=== PATIENT | female | born 1945 | race Caucasian/White ===

== ENCOUNTER 2020-01-28 23:53 | Observation (INO) | payer MEDICARE, OTHER, SELFPAY ==
[2020-01-28 23:57] VITALS: BP 119/62; PULSE 73; RESP 18; TEMP 36.7; O2SAT 98; BMI 25.1
--- NOTE | 2020-01-28 23:59 | ECG_ITS ---
APPROVED REPORT Exam: Resting ECG HR:68 bpm ECG Measurements Heart Rate 68 AXES WI 206 P 66 QRSd 96 QRS -68 QT 442 T 41 QTc 469 <Conclusion> Normal sinus rhythm Left axis deviation Abnormal ECG Electronically signed by : Walter Murillo, 01/31/2020 13:14:47
--- NOTE | 2020-01-29 00:03 | XR_ITS ---
PROCEDURE: XR CHEST PORTABLE CLINICAL HISTORY: ams, abrupt onset n/v COMPARISON: No exams were available for comparison FINDINGS: There is mild cardiomegaly without failure. Linear density is present in the left lung base and may be due to atelectasis or fibrosis. No lobar consolidation or collapse. There is also increased density in the right apex which may be due to overlying Chin artifact No acute bony abnormalities. IMPRESSION: Cardiomegaly with left basilar atelectasis or fibrosis and possible soft tissue artifact in the right apex Dictated by: Shoaib Rob MD 01/29/2020 06:21 Electronically signed by Shoaib Rob MD in [facility] 01/29/2020 06:21
--- NOTE | 2020-01-29 00:05 | CT_ITS ---
PROCEDURE: CT ABDOMEN PELVIS WO CON CLINICAL INDICATION: n/v Nausea and vomiting COMPARISON: No exams were available for comparison TECHNIQUE: Axial images obtained with sagittal and coronal reformats. All CT scans at the facility use one or more dose reduction, viz: automated exposure control, ma/kV adjustment per patient size (including targeted exams where dose is matched to indication, i.e. head), or iterative reconstruction technique. FINDINGS: LOWER THORAX: Atelectatic changes are present in the lung bases. There is dense calcification of the mitral valve annulus and coronary artery calcifications are also present. ABDOMEN & PELVIS: Increased density is noted in the posterior aspect of the gallbladder suggesting cholelithiasis and/or sludge. The liver, spleen, and pancreas have an unremarkable appearance. The adrenal glands are slightly enlarged but maintain and adrenal form shape. 3.8 cm cyst involves the right kidney medially. Renal arterial calcifications are present. There is a small hiatal hernia. No intestinal obstruction or free air. No evidence of appendicitis. There is colonic diverticulosis but no evidence of diverticulitis. Fenton catheter is present in a decompressed urinary bladder. No pelvic mass or abnormal fluid collection apparent. Post hysterectomy changes are noted. Atherosclerotic changes of the abdominal aorta with mild dilatation of the immediate infrarenal abdominal aorta at 2.1 cm and mild dilatation of the mid abdominal aorta at 2 cm and the lower abdominal aorta at 1.9 cm. IMPRESSION: 1. Possible stones and/or sludge in the gallbladder. Gallbladder ultrasound may provide further evaluation 2. Colonic diverticulosis. 3. Other nonacute findings as detailed above. Dictated by: Shoaib Rob MD 01/29/2020 09:12 Electronically signed by Shoaib Rob MD in [facility] 01/29/2020 09:12
--- NOTE | 2020-01-29 00:05 | CT_ITS ---
PROCEDURE: CT HEAD/BRAIN WO CON CLINICAL INDICATION: Altered mental status, altered level of consciousness, confusion, disorientation, prior stroke Sudden onset of vomiting with nausea COMPARISON: No exams were available for comparison TECHNIQUE: Axial images obtained. All CT scans at the facility use one or more dose reduction, viz: automated exposure control, ma/kV adjustment per patient size (including targeted exams where dose is matched to indication, i.e. head), or iterative reconstruction technique. FINDINGS: No midline shift, mass effect, intracranial hemorrhage, hydrocephalus, or extra-axial fluid collection is evident. There is generalized atrophy with hypoattenuation of the periventricular white matter consistent with microangiopathic changes.. Old lacunar infarctions are present involving the basal ganglia on both sides. The calvarium has an unremarkable appearance. No mastoid effusion. Bilateral maxillary sinus retention cysts are present. IMPRESSION: No acute intracranial finding Dictated by: Shoaib Rob MD 01/29/2020 09:07 Electronically signed by Shoaib Rob MD in [facility] 01/29/2020 09:07
[2020-01-29 00:12] LABS: Basophils # 0.3 K/mm3 (0-0.2); Basophils % 2.2 % (0.1-2.0); Eosinophils # 0.1 K/mm3 (0.0-0.4); Hematocrit 40.9 % (37.0-47.0); Hemoglobin 13.3 g/dL (12.2-16.2); Lymphocytes # 2.1 K/mm3 (0.7-4.5); Lymphocytes % 15.9 % (10-50); Mean Corpuscular HGB Conc 32.5 g/dL (31.8-35.4); Mean Corpuscular Volume 92.4 fl (81-99); Mean Platelet Volume 10.6 fl (7.4-10.4); Monocytes # 0.6 K/mm3 (0.1-1.0); Monocytes % 4.8 % (1.7-9.3); Neutrophils # 9.8 K/mm3 (1.8-7.8); Neutrophils % 76.1 % (37.0-80.0); Platelet Count 338 K/mm3 (142-424); Red Blood Count 4.43 M/mm3 (4.20-5.40); Red Cell Distribution Width 14.4 % (11.5-17.5); White Blood Count 12.8 K/mm3 (4.8-10.8)
--- NOTE | 2020-01-29 00:17 | PC.NURSE ---
urine obtained and sent to lab, swabs obtained and sent to lab. no new at this time.
[2020-01-29 00:21] LABS: Microscopic, Urine URINE MICROSCOPIC (MICROSCOPIC)
[2020-01-29 00:21] LABS: Alanine Aminotransferase 13 U/L (12-78); Albumin Level 4.3 g/dl (3.5-5.0); Albumin/Globulin Ratio 1.2 (1.1-1.8); Alkaline Phosphatase 94 U/L (38-126); Amylase 141 U/L (30-110); Anion Gap 11.8 mEq/L (5-15); Aspartate Amino Transferase 24 U/L (14-36); Bilirubin,Total 0.2 mg/dl (0.2-1.3); Blood Urea Nitrogen 37 mg/dl (7-17); Carbon Dioxide 27 mmol/L (22.0-30.0); Chloride 107 mmol/L (98-107); Creatinine Clearance Estimated 40 mL/min (50-200); Estimated Glomerular Filt Rate 40 ml/min (>60); GFR (African American) 49 ML/MIN (>60); Globulin 3.6 g/dL (1.3-3.2); Glucose 177 mg/dl (74-100); Lipase 119 U/L (23-300); Potassium 3.8 mmoL/L (3.5-5.1); Sodium 142 mmol/L (136-145); Total Protein,Serum 7.9 g/dl (6.3-8.2)
[2020-01-29 00:23] LABS: Bilirubin,Urine Negative (Negative); Blood, Urine 1+ (Negative); Color,Urine YELLOW (Yellow); Glucose,Urine (UA) Negative (Negative); Ketones,Urine Negative (Negative); Leukocyte Esterase,Urine 2+ (Negative); Nitrate,Urine POSITIVE (Negative); Protein,Urine TRACE (Negative); Urobilinogen,Urine 0.2 EU/dl (0.2)
[2020-01-29 00:28] LABS: Appearance,Urine Cloudy (Clear); Strep Scrn Group A (Rapid) Negative (Negative)
[2020-01-29 00:30] LABS: Bacteria,Urine 2+ /lpf
[2020-01-29 00:31] LABS: Amorphous Sediment,Urine 1+ /lpf; Mucus,Urine 1+ /lpf
[2020-01-29 00:38] LABS: Troponin I < 0.01 ng/ml (0.00-0.034)
--- NOTE | 2020-01-29 00:39 | PC.NURSE ---
notified rad of gfr. changed to without contrast ct abd.
[2020-01-29 00:43] LABS: Erythrocyte Sedimentation Rate 35 mm/hr (0-30)
--- NOTE | 2020-01-29 01:35 | HMH.EDAMS ---
ED Disposition Clinical Impression: Renal insufficiency UTI (urinary tract infection) Qualifiers: Urinary tract infection type: site unspecified Hematuria presence: without hematuria Qualified Code(s): N39.0 - Urinary tract infection, site not specified Disposition: Admitted as Observation Condition on Discharge: Fair - Critical Care Critical Care Time: No Attestation: On 01/28/20, the high probability of a clinically significant, sudden or life threatening deterioration of the following system(s) required my full and direct attention, intervention and personal management. The time I documented below is in addition to time spent performing reported procedures but includes the following listed in this critical care notation. Medical Decision Making - Medical Records Medical records reviewed: Yes: I reviewed the patient's medical records. - Jaime Inquiry Pt receiving controlled substance: No Vital Signs: 01/28/20 23:57 Temperature 98.1 F Temperature Source Oral Pulse Rate [Right Brachial] 73 Respiratory Rate 18 Blood Pressure [Right Arm] 119/62 Blood Pressure Mean [Right Arm] 81 Blood Pressure Source [Right Arm] Automatic Cuff Blood Pressure Position [Right Arm] Sitting 02 Sat by Pulse Oximetry 98 Oxygen Delivery Method Room Air - Lab Data Lab results reviewed: Yes: I reviewed the patient's lab results. Lab Results 01/29/20 00:00: WBC 12.8 H, RBC 4.43, Hgb 13.3, Hct 40.9, MCV 92.4, MCH 30.0, MCHC 32.5, RDW 14.4, Plt Count 338, MPV 10.6 H, Neut % (Auto) 76.1, Lymph % (Auto) 15.9, [place] % (Auto) 4.8, Eos % (Auto) 1.0, Baso % (Auto) 2.2 H, Neut # (Auto) 9.8 H, Lymph # (Auto) 2.1, [place] # (Auto) 0.6, Eos # (Auto) 0.1, Baso # (Auto) 0.3 H, ESR 35 H 01/29/20 00:00: Sodium 142, Potassium 3.8, Chloride 107, Carbon Dioxide 27, Anion Gap 11.8, BUN 37 H, Creatinine 1.30 H, Estimated Creat Clear 40, Estimated GFR 40 L, Est GFR ( Amer) 49 L, Glucose 177 H, Calcium 10.0, Total Bilirubin 0.2, AST 24, ALT 13, Alkaline Phosphatase 94, Troponin I < 0.01, C-Reactive Protein 2.0, Total Protein 7.9, Albumin 4.3, Globulin 3.6 H, Albumin/Globulin Ratio 1.2, Amylase 141 H, Lipase 119 01/29/20 00:15: Urine Color Yellow, Urine Appearance Cloudy, Urine pH 7.0, Ur Specific [place] 1.020, Urine Protein Trace, Urine Glucose (UA) Negative, Urine Ketones Negative, Urine Blood 1+, Urine Nitrate Positive, Urine Bilirubin Negative, Urine Urobilinogen 0.2, Ur Leukocyte Esterase 2+ A, Urine RBC 3-5, Urine WBC 5-10, Amorphous Sediment 1+, Urine Bacteria 2+, Urine Mucus 1+ 01/29/20 00:15: Influenza Type A Ag Negative, Influenza Type B Ag Negative 01/29/20 00:15: Group A Strep Rapid Negative Result diagrams: 01/29/20 00:00 01/29/20 00:00 Orders (Tests/Meds): ED MEDICATIONS Generic Name Dose Route Start Last Admin Trade Name Freq PRN Reason Stop Dose Admin Sodium Chloride 1,000 mls @ 999 mls/hr 01/29/20 01:15 01/29/20 01:34 Sod Chlor 0.9% 1000ml Bag IV 01/29/20 02:15 999 mls/hr .Q1H1M ALBERTA Administration Ertapenem 1 gm/ Sodium 50 mls @ 100 mls/hr 01/29/20 01:15 01/29/20 01:34 Chloride IV 02/12/20 01:14 100 mls/hr Q24H ALBERTA Administration Protocol ORDERS Category Date Time Status CT abdomen pelvis wo con Stat Cat Scan 01/29/20 00:[address] head/brain wo con Stat Cat Scan 01/29/20 00:05 Taken XR chest portable Stat Exams 01/29/20 00:03 Taken Troponin I Q3H Lab 01/29/20 03:15 Ordered Troponin I Q3H Lab 01/29/20 06:15 Ordered Strep Screen Confirmation Stat Micro 01/29/20 00:15 Received Urine Culture Stat Micro 01/29/20 00:15 Received - Radiology Data #1 Image(s): Chest Image Reviewed: Yes I reviewed the patient's radiology image Preliminary Findings: Normal/NAD - CT Data CT Scan: Head, Abdomen, Pelvis Time Received: 01:[address] Reviewed: Yes: I have viewed the radiologist's interpretation Preliminary Findings: Abnormal (nonspecific ) - ECG Data Tracing #1 Normal Sinus
--- NOTE | 2020-01-29 01:48 | PC.NURSE ---
I spoke with and son in the parking lot and advised them we were admitting her with a UTI. They were going home and would call and check on her later.
[2020-01-29 02:21] VITALS: BP 112/75; PULSE 73; RESP 19; TEMP 36.7; O2SAT 99
[2020-01-29 02:40] LABS: Lactic Acid 0.8 mmol/L (0.7-2.1)
--- NOTE | 2020-01-29 03:06 | PC.NURSE ---
p arrived to floor via stretcher from ED
[2020-01-29 03:07] VITALS: BP 137/72; PULSE 76; RESP 16; TEMP 36.5; O2SAT 96; BMI 23.6
--- NOTE | 2020-01-29 03:07 | PC.NURSE ---
pt arrived to floor via stretcher from ED
[2020-01-29 03:24] VITALS: PULSE 70
[2020-01-29 03:56] LABS: Troponin I < 0.01 ng/ml (0.00-0.034)
[2020-01-29 04:00] VITALS: PULSE 80
--- NOTE | 2020-01-29 05:43 | PC.NURSE ---
A&OX4. PERRLA, MOLDER STRONG AND EQUAL BILAT. COMMUNICATION WITH STAFF APPROPRIATE. PT REPORTS SHE DOES NOT KNOW THE NAMES OF HER HOME MEDICATIONS. PT STATED I JUST TAKE A PILL FOR MY HEART, BLOOD PRESSURE, THYROID PILL, ASPIRIN. USED THE EXTERNAL MEDICATION LIST FOR ASSISTANCE WITH COMPLETION OF MED REC ON ADMISSION. LUNGS CLEAR T/O AUSCULTATION. TOLERATED RA WELL. PULSES +2, CAP REFILL <3SEC. ABDOMEN MILDLY DISTENDED, ACTIVE BOWEL SOUNDS, SOFT AND NONTENDER PER PALPATION. CROUCH CATHETER IN PLACE, PATENT, DRAINING DARK YELLOW, CLOUDY URINE. INDEPENDENT WITH BED MOBILITY. VSS. WILL CONTINUE TO MONITOR.
[2020-01-29 06:32] LABS: Basophils # 0.1 K/mm3 (0-0.2); Basophils % 0.7 % (0.1-2.0); Eosinophils # 0.1 K/mm3 (0.0-0.4); Eosinophils % 0.8 % (0.1-12.0); Lymphocytes # 1.9 K/mm3 (0.7-4.5); Lymphocytes % 18.9 % (10-50); Mean Corpuscular HGB Conc 32.3 g/dL (31.8-35.4); Mean Corpuscular Hemoglobin 29.5 pg (27.0-31.2); Mean Corpuscular Volume 91.2 fl (81-99); Mean Platelet Volume 9.5 fl (7.4-10.4); Monocytes # 0.5 K/mm3 (0.1-1.0); Monocytes % 5.1 % (1.7-9.3); Neutrophils # 7.5 K/mm3 (1.8-7.8); Neutrophils % 74.4 % (37.0-80.0); Platelet Count 281 K/mm3 (142-424); Red Blood Count 3.84 M/mm3 (4.20-5.40); Red Cell Distribution Width 14.3 % (11.5-17.5)
[2020-01-29 06:33] LABS: Chloride 111 mmol/L (98-107)
[2020-01-29 06:34] LABS: Potassium 3.7 mmoL/L (3.5-5.1); Sodium 142 mmol/L (136-145)
[2020-01-29 06:37] LABS: Anion Gap 9.7 mEq/L (5-15); Blood Urea Nitrogen 32 mg/dl (7-17); Carbon Dioxide 25 mmol/L (22.0-30.0); Creatinine Clearance Estimated 44 mL/min (50-200); Estimated Glomerular Filt Rate 49 ml/min (>60); GFR (African American) 59 ML/MIN (>60); Glucose 108 mg/dl (74-100); Hematocrit 34.8 % (37.0-47.0); Hemoglobin 11.4 g/dL (12.2-16.2); Magnesium 2.1 mg/dl (1.6-2.3)
[2020-01-29 06:38] LABS: Calcium 8.8 mg/dl (8.4-10.2)
[2020-01-29 06:55] LABS: Troponin I < 0.01 ng/ml (0.00-0.034)
--- NOTE | 2020-01-29 07:29 | HMH.PHAVTE ---
[facility] Pharmacy VTE Monitoring - Patient Demographics Admission date: 01/29/20 Report Date: 01/29/20 Time: 07:29 Allergies/Adverse Reactions: Patient Allergies Penicillins Allergy (Mild, Verified 01/29/20 00:03) Height: 1.6 m Weight: 60.583 kg Patient Problems: Current Active Problems UTI (urinary tract infection) (Acute) Renal insufficiency (Acute) - VTE Risk Labs: VTE Related Lab Results Hgb 11.4 g/dL (12.2-16.2) L D 01/29/20 05:56 Hct 34.8 % (37.0-47.0) L 01/29/20 05:56 Plt Count 281 K/mm3 (142-424) 01/29/20 05:56 BUN 32 mg/dl (7-17) H 01/29/20 05:56 Creatinine 1.10 mg/dl (0.52-1.04) H 01/29/20 05:56 Estimated Creat Clear 44 mL/min (50-200) 01/29/20 05:56 VTE Score: 3 VTE Risk Level: Low Risk - Prophylaxis VTE Prophylaxis Ordered?: Yes Types of VTE Prophylaxis: TEDS Knee High Location of Applied Device: Bilateral Lower Extremeties - VTE Diagnosis Confirmed Treatment or plan recommended: Continue Current Treatment
[2020-01-29 08:00] VITALS: BP 104/58; PULSE 67; PULSE 70; RESP 16; TEMP 37; O2SAT 98
--- NOTE | 2020-01-29 09:15 | HMH.HPDC ---
General - General Admission date:: 01/29/20 Discharge date: 01/29/20 *Admission Date: 01/29/20 *Chief complaint: confusion *History of present illness: Ms. Colon is a pleasant 74-year-old female with history of stroke, hypertension, hyperlipidemia who presented to the ER last night due to confusion per her report. Review of ER documentation shows EMS brought the patient from home because her family was concerned due to worsening confusion. Was afebrile, hemodynamically stable. Work-up remarkable for mild leukocytosis and urinary tract infection. This morning on interview she denies any history of urinary tract infections. States she is doing pretty well. Is oriented on exam to person place and time. Tolerating breakfast without difficulty. Denies any chest pain, shortness of breath, belly pain, nausea vomiting or diarrhea. States she is feeling good this morning and interested in going home. Lives with her and son. They help care for her. Has some residual right-sided deficits per her report from a stroke several years ago but otherwise ambulates fairly well with a cane. Relatively independent for ADLs per her report. [facility] History I have reviewed the patient's past medical history: Yes Medical History: Reports:: Hyperlipidemia, Hypertension Denies:: Diabetes Mellitus Type 1, Diabetes Mellitus Type 2 *Have you ever received a pneumonia vaccine?: No *Have you received a flu vaccine this season?: No Other Medical History: Reports: Hypothyroidism Other Surgeries: Yes: Hysterectomy-Total - *Social History Educational Level: Completed Grade School Smoking Status: Current every day smoker Tobacco Type: cigarettes # Packs/Day (cigarettes): 1 Alcohol Intake: never *Occupational Status:: retired Household Members: spouse *Travel in the last 8 weeks: None Family Hx:: Cancer Review of Systems - Review of Systems Review of systems:: pertinent systems reviewed and negative unless documented below (14 point review of systems performed, pertinent positives and negatives as per HPI) - *Neurologic Reports confusion, Reports weakness, Denies abnormal speech, Denies localized weakness, Denies headache(s), Denies seizure-like activity Exam Vital signs and Labs for Last 24 Hours: Temp Pulse Resp BP Pulse Ox 98.6 F 67 16 104/58 L 98 01/29/20 08:00 01/29/20 08:00 01/29/20 08:00 01/29/20 08:00 01/29/20 08:00 Laboratory Results - last 24 hr 01/29/20 00:00: WBC 12.8 H, RBC 4.43, Hgb 13.3, Hct 40.9, MCV 92.4, MCH 30.0, MCHC 32.5, RDW 14.4, Plt Count 338, MPV 10.6 H, Neut % (Auto) 76.1, Lymph % (Auto) 15.9, [place] % (Auto) 4.8, Eos % (Auto) 1.0, Baso % (Auto) 2.2 H, Neut # (Auto) 9.8 H, Lymph # (Auto) 2.1, [place] # (Auto) 0.6, Eos # (Auto) 0.1, Baso # (Auto) 0.3 H, ESR 35 H 01/29/20 00:00: Sodium 142, Potassium 3.8, Chloride 107, Carbon Dioxide 27, Anion Gap 11.8, BUN 37 H, Creatinine 1.30 H, Estimated Creat Clear 40, Estimated GFR 40 L, Est GFR ( Amer) 49 L, Glucose 177 H, Calcium 10.0, Total Bilirubin 0.2, AST 24, ALT 13, Alkaline Phosphatase 94, Troponin I < 0.01, C-Reactive Protein 2.0, Total Protein 7.9, Albumin 4.3, Globulin 3.6 H, Albumin/Globulin Ratio 1.2, Amylase 141 H, Lipase 119 01/29/20 00:15: Urine Color Yellow, Urine Appearance Cloudy, Urine pH 7.0, Ur Specific [place] 1.020, Urine Protein Trace, Urine Glucose (UA) Negative, Urine Ketones Negative, Urine Blood 1+, Urine Nitrate Positive, Urine Bilirubin Negative, Urine Urobilinogen 0.2, Ur Leukocyte Esterase 2+ A, Urine RBC 3-5, Urine WBC 5-10, Amorphous Sediment 1+, Urine Bacteria 2+, Urine Mucus 1+ 01/29/20 00:15: Influenza Type A Ag Negative, Influenza Type B Ag Negative 01/29/20 00:15: Group A Strep Rapid Negative 01/29/20 02:13: Lactate 0.8 01/29/20 03:24: Troponin I < 0.01 01/29/20 05:56: Troponin I < 0.01 01/29/20 05:56: WBC 10.0, RBC 3.84 L, Hgb 11.4 L D, Hct 34.8 L, MCV 91.2, MCH 29.5, MCHC 32.3, RDW 14.3, Plt Count 281, MPV 9.5, Neut % (Auto) 74.4,
--- NOTE | 2020-01-29 09:57 | PC.NURSE ---
Addendum entered by MARCIA Kaminski 01/29/20 11:14: Care Management contacted me with pt's Dr office name. Appointment was made for the pt. Original Note: No follow up appointment was made for this pt. Pt unable to tell us who her primary was. She is going to make her own appointment when she goes home and has her dr.'s name and number on hand.
--- NOTE | 2020-01-29 10:23 | HMH.PHAINT ---
DISCHARGE COUNSELING-DISCUSSED DISCHARGE ANTIBIOTIC, LEVAQUIN, WITH PATIENT.
== END 2020-01-29 11:30 | disposition home or self-care (01) ==
LOC: ER 01-29 00:56 → 2ND 01-29 01:24
PROVIDERS: Admitting Provider Internal Medicine Adolescent Medicine; Emergency Provider Emergency Medicine; Visit Provider Internal Medicine Adolescent Medicine
DX: N39.0 Urinary tract infection, site not specified (principal); I10 Essential (primary) hypertension; E78.5 Hyperlipidemia, unspecified; Z72.0 Tobacco use; B96.20 Unspecified Escherichia coli [E. coli] as the cause of diseases classified elsewhere; I69.351 Hemiplegia and hemiparesis following cerebral infarction affecting right dominant side
CPT/HCPCS: 36415; 70450; 71045; 74176; 80048; 80053; 81001; 82150; 83605; 83690; 83735; 84484; 85025; 85651; 86140; 87040; 87086; 87088; 87186; 87275; 87276; 87430; 93005; 96365; 99282; 99285; G0378; J1335

== ENCOUNTER 2021-04-05 13:45 | Observation (INO) | payer MEDICARE, SELFPAY ==
[2021-04-05] VITALS (22 sets, daily range): BP systolic 97–131; BP diastolic 48–70; PULSE 70–84; RESP 16–18; TEMP 36.4–37; O2SAT 93–99; BMI 18.8; BMI 25.4
[2021-04-05 14:21] LABS: Chloride 113 mmol/L (98-107); Potassium 4.3 mmoL/L (3.5-5.1); Sodium 142 mmol/L (136-145)
[2021-04-05 14:24] LABS: Anion Gap 12.3 mEq/L (5-15); Blood Urea Nitrogen 45 mg/dl (7-17); Calcium 8.6 mg/dl (8.4-10.2); Carbon Dioxide 21 mmol/L (22.0-30.0); Creatinine Clearance Estimated 28 mL/min (50-200); Estimated Glomerular Filt Rate 40 ml/min (>60); GFR (African American) 49 ML/MIN (>60); Glucose 91 mg/dl (74-100)
[2021-04-05 14:26] LABS: Basophils # 0.1 K/mm3 (0-0.2); Basophils % 1.2 % (0.1-2.0); Eosinophils # 0.2 K/mm3 (0.0-0.4); Eosinophils % 2.4 % (0.1-12.0); Lymphocytes % 24.4 % (10-50); Mean Corpuscular HGB Conc 31.1 g/dL (31.8-35.4); Mean Corpuscular Hemoglobin 27.6 pg (27.0-31.2); Mean Corpuscular Volume 88.7 fl (81-99); Mean Platelet Volume 9.4 fl (7.4-10.4); Monocytes # 0.6 K/mm3 (0.1-1.0); Monocytes % 6.9 % (1.7-9.3); Neutrophils # 5.3 K/mm3 (1.8-7.8); Neutrophils % 65.1 % (37.0-80.0); Platelet Count 329 K/mm3 (142-424); Red Cell Distribution Width 16.2 % (11.5-17.5); White Blood Count 8.2 K/mm3 (4.8-10.8)
[2021-04-05 14:31] LABS: Hematocrit 21.2 % (37.0-47.0); Hemoglobin 6.6 g/dL (12.2-16.2)
--- NOTE | 2021-04-05 14:31 | PC.NURSE ---
vandana in lab called with critical Hgb and HCT values on pt, verified pts name an . notified ER of critical results
--- NOTE | 2021-04-05 14:48 | HMH.EDGENADL ---
ED Disposition Clinical Impression: Anemia Disposition: Admitted as Observation Condition on Discharge: Good Referrals: Provider,Referral, [Primary Care Provider] - - Critical Care Critical Care Time: No Attestation: On 04/05/21, the high probability of a clinically significant, sudden or life threatening deterioration of the following system(s) required my full and direct attention, intervention and personal management. The time I documented below is in addition to time spent performing reported procedures but includes the following listed in this critical care notation. Medical Decision Making - Medical Records MR Comment: Patient Hb is 6.6 rectal exam did not show any melena. She takes aspirin a day and probably she lost blood continuously through the GI. Painless upper and lower GI scope. Will be admitted for blood transfusion. I called Dr. Alonzo he is on-call for admission agreed to admit this patient. - Jaime Inquiry Pt receiving controlled substance: No Jaime was queried for this patient: No Vital Signs: 04/05/21 14:00 Temperature 98.6 F Temperature Source Oral Pulse Rate [Right] 84 Respiratory Rate 18 Blood Pressure [Right Arm] 103/49 L Blood Pressure Mean [Right Arm] 67 Blood Pressure Position [Right Arm] Sitting 02 Sat by Pulse Oximetry 97 Oxygen Delivery Method Room Air - Lab Data Lab Results 04/05/21 13:50: WBC 8.2, RBC 2.40 L, Hgb 6.6 L*, Hct 21.2 L*, MCV 88.7, MCH 27.6, MCHC 31.1 L, RDW 16.2, Plt Count 329, MPV 9.4, Neut % (Auto) 65.1, Lymph % (Auto) 24.4, [place] % (Auto) 6.9, Eos % (Auto) 2.4, Baso % (Auto) 1.2, Neut # (Auto) 5.3, Lymph # (Auto) 2.0, [place] # (Auto) 0.6, Eos # (Auto) 0.2, Baso # (Auto) 0.1 04/05/21 13:50: Sodium 142, Potassium 4.3, Chloride 113 H, Carbon Dioxide 21 L, Anion Gap 12.3, BUN 45 H, Creatinine 1.30 H, Estimated Creat Clear 28, Estimated GFR 40 L, Est GFR ( Amer) 49 L, Glucose 91, Calcium 8.6 04/05/21 14:40: Stool Occult Blood Negative Result diagrams: 04/05/21 13:50 04/05/21 13:50 Orders (Tests/Meds): ED MEDICATIONS Generic Name Dose Route Start Last Admin Trade Name Nicol PRN Reason Stop Dose Admin Acetaminophen 650 mg 04/05/21 15:07 Acetaminophen 325mg Tab PO 05/05/21 15:06 Q4HP PRN Fever or Mild Pain Hydrocodone Bitart/Acetaminophen 1 tab 04/05/21 15:07 Hydrocodone/Apap 5/325 Mg Tablet PO 05/05/21 15:06 Q4HP PRN Mild to Moderate Pain Sodium Chloride 250 mls @ 25 mls/hr 04/05/21 15:15 Sod Chlor 0.9% 250ml Bag IV 04/06/21 15:14 .Q10H ALBERTA Sodium Chloride 1,000 mls @ 50 mls/hr 04/05/21 15:15 Sod Chlor 0.9% 1000ml Bag IV 05/05/21 15:14 .Q20H ALBERTA ORDERS Category Date Time Status Blood transfusion [Red Blood Cells] Stat BBK 04/05/21 15:05 Ordered Type and Screen Stat BBK 04/05/21 15:05 Ordered Rapid PCR Covid and Flu A/B Stat Lab 04/05/21 14:58 Received General Adult HPI - General Chief complaint: Recheck/Abnormal Lab/Rx Stated complaint: critical labs Time Seen by Provider: 04/05/21 14:15 Mode of Arrival: EMS Limitations: No Limitations Description of Symptoms (Recalled from ER Triage Doc. by RN): Pt via [facility] from home for critical H&H lab value. Pt denies any complaints at this time. AOx4. VSS. - History of Present Illness HPI narrative: There is old female she has no complaints she was sent here by her primary care physician because of critical lab of her low hemoglobin. Patient denied any abdominal pain. She denies any melena or hematemesis. She denied any nausea or vomiting. No chest pain. She takes aspirin on daily basis. She denied any acid reflux problem or epigastric pain or discomfort. She used to take blood pressure medications and her primary care physician stopped it. To the emergency room with no complaints except her labs indicates that her hemoglobin is 6.6. - Related Data Home Medications Medication Instructions Recorded Confirm
[2021-04-05 14:51] LABS: Occult Blood,Stool Negative (Negative)
--- NOTE | 2021-04-05 14:58 | PC.NURSE ---
SOLEDAD LAURA speaking with Dr. Alonzo who is environmental protection officer for service pts
[2021-04-05 15:01] LABS: Coronavirus 19, PCR Not Detected (NotDetected); Influenza A, PCR Not Detected (NotDetected); Influenza B, PCR Not Detected (NotDetected)
--- NOTE | 2021-04-05 15:05 | PC.NURSE ---
notified care management of admission
--- NOTE | 2021-04-05 15:19 | PC.NURSE ---
sherry rileyn at BS
--- NOTE | 2021-04-05 15:20 | PC.NURSE ---
lab at to obtain type and screen
--- NOTE | 2021-04-05 15:56 | HMH.PHAVTE ---
[facility] Pharmacy VTE Monitoring - Patient Demographics Admission date: 04/05/21 Report Date: 04/05/21 Time: 15:57 Allergies/Adverse Reactions: Patient Allergies Penicillins Allergy (Mild, Verified 04/05/21 15:12) Height: 1.55 m Weight: 45.359 kg Patient Problems: Current Active Problems Anemia (Acute) - VTE Risk Labs: VTE Related Lab Results Hgb 6.6 g/dL (12.2-16.2) L* 04/05/21 13:50 Hct 21.2 % (37.0-47.0) L* 04/05/21 13:50 Plt Count 329 K/mm3 (142-424) 04/05/21 13:50 BUN 45 mg/dl (7-17) H 04/05/21 13:50 Creatinine 1.30 mg/dl (0.52-1.04) H 04/05/21 13:50 Estimated Creat Clear 28 mL/min (50-200) 04/05/21 13:50 - Prophylaxis VTE Prophylaxis Ordered?: Yes Types of VTE Prophylaxis: TEDS Knee High Location of Applied Device: Bilateral Lower Extremeties
--- NOTE | 2021-04-05 16:06 | HMH.HP ---
*Admission Date: 04/05/21 *Chief complaint: anemia *History of present illness: Ms Colon is a 65 year old female with a history of HTN, hyperlipidemia, and hypothyroidism who was brought to [facility] emergency room for evaluation via ambulance due to critical lab values obtained by primary physician during a routine visit. With evaluation in the emergency room she was found to have a hemoglobin of 6.6. Patient denies any source of bleeding to include hematemesis, melena, hematochezia, hematuria. She denies abdominal pain, nausea, and vomiting. She has had no diarrhea and stools have been. Normal to her. She does state that she takes an aspirin a day. She denies taking any NSAIDs and has no reflux problems. Patient states she is still fine. She takes daily walks. She denies chest pain, shortness of breath, syncope and dizziness. She states she has never had an EGD or colonoscopy. Patient is admitted for administration of packed red blood cells. She will have a surgical consult. [facility] History Medical History: Reports:: Hyperlipidemia, Hypertension Denies:: Chronic Obstructive Pulmonary Disease (COPD), Diabetes Mellitus Type 1, Diabetes Mellitus Type 2 *Have you ever received a pneumonia vaccine?: No *Have you received a flu vaccine this season?: No Other Medical History: Reports: Hypothyroidism Other Surgeries: Yes: Hysterectomy-Total - *Social History Smoking Status: Current every day smoker Tobacco Type: cigarettes # Packs/Day (cigarettes): 1 Alcohol Intake: never *Occupational Status:: retired Housing: house Household Members: none *Travel in the last 8 weeks: None Family Hx:: Cancer, Diabetes Review of Systems - Constitutional Denies fatigue, Denies lack of energy - Eyes Denies change in vision - ENT Denies ear pain, Denies sore throat, Denies dizziness - *Cardiovascular Reports leg swelling, Denies chest pain, Denies shortness of breath - *Respiratory Denies chest congestion, Denies cough, Denies shortness of breath - *Gastrointestinal Denies abdominal pain, Denies change in stools, Denies constipation, Denies loose stools, Denies heartburn, Denies black, tarry stools, Denies nausea, Denies vomiting - *Genitourinary Denies difficulty urinating - *Musculoskeletal Denies abnormal walking, Denies joint pain - *Neurologic Denies abnormal walking, Denies behavioral changes Meds Home Medications Medication Instructions Recorded Confirmed Type Aspirin [Adult Low Dose Aspirin EC] 81 mg PO DAILY 04/05/21 04/05/21 History Pravastatin Sodium [Pravachol 40mg 40 mg PO HS 04/05/21 04/05/21 History Tablet] atenoloL [Atenolol 50mg Tab] 50 mg PO DAILY 04/05/21 04/05/21 History Allergies Allergy/AdvReac Type Severity Reaction Status Date / Time Penicillins Allergy Mild Verified 04/05/21 15:12 Exam Vital signs and Labs for Last 24 Hours: Temp Pulse Resp BP Pulse Ox 98.6 F 84 18 103/49 L 97 04/05/21 14:00 04/05/21 14:00 04/05/21 14:00 04/05/21 14:00 04/05/21 14:00 Laboratory Results - last 24 hr 04/05/21 13:50: WBC 8.2, RBC 2.40 L, Hgb 6.6 L*, Hct 21.2 L*, MCV 88.7, MCH 27.6, MCHC 31.1 L, RDW 16.2, Plt Count 329, MPV 9.4, Neut % (Auto) 65.1, Lymph % (Auto) 24.4, [place] % (Auto) 6.9, Eos % (Auto) 2.4, Baso % (Auto) 1.2, Neut # (Auto) 5.3, Lymph # (Auto) 2.0, [place] # (Auto) 0.6, Eos # (Auto) 0.2, Baso # (Auto) 0.1 04/05/21 13:50: Sodium 142, Potassium 4.3, Chloride 113 H, Carbon Dioxide 21 L, Anion Gap 12.3, BUN 45 H, Creatinine 1.30 H, Estimated Creat Clear 28, Estimated GFR 40 L, Est GFR ( Amer) 49 L, Glucose 91, Calcium 8.6 04/05/21 14:40: Stool Occult Blood Negative 04/05/21 14:58: SARS-CoV-2 (PCR) Not detected, Influenza A Untype (PCR) Not detected, Influenza Type B (PCR) Not detected 04/05/21 15:30: Crossmatch (AHG) See Detail I & O for Last 24 hours: Intake & Output 0604/04/21 04/05/21 04/06/21 11:59 11:59 11:59 11:59 Weight
--- NOTE | 2021-04-05 16:25 | PC.NURSE ---
pt arrived to the floor room 201 via wheelchair from ED
--- NOTE | 2021-04-05 16:38 | PC.NURSE ---
received call from Dr. Browne with new orders: clear liquids now and NPO @ [place]. He reports that he will enter his own orders. Plan is for EGD tomorrow. He will make early AM rounds tomorrow.
[2021-04-06] VITALS (17 sets, daily range): BP systolic 89–150; BP diastolic 47–78; PULSE 75–87; RESP 14–18; TEMP 36.4–36.9; O2SAT 92–98; BMI 25.4
--- NOTE | 2021-04-06 03:22 | PC.NURSE ---
A&OX4. TOLERATING RA WELL. PT RECEIVED SECOND UNIT OF PRBC THIS SHIFT, TOLERATED WELL. H&H UP TO 9 AND 28.2. PT HAS HAD NO C/O PAIN THUS FAR. NO BM THIS SHIFT. SLEEPING MAJORITY OF SHIFT. NPO DIET TOLERATED WELL. VSS WILL CONTINUE TO MONITOR.
--- NOTE | 2021-04-06 06:36 | HMH.GSCON ---
*Admission Date: 04/05/21 *Reason for consult:: Anemia *History of present illness: This is a 75-year-old female seen in consultation from the service of Dr. Alonzo for evaluation regarding anemia. Please see HPI from admission H&P forwarded below. Forwarded from admission H&P: Ms Colon is a 65 year old female with a history of HTN, hyperlipidemia, and hypothyroidism who was brought to [facility] emergency room for evaluation via ambulance due to critical lab values obtained by primary physician during a routine visit. With evaluation in the emergency room she was found to have a hemoglobin of 6.6. Patient denies any source of bleeding to include hematemesis, melena, hematochezia, hematuria. She denies abdominal pain, nausea, and vomiting. She has had no diarrhea and stools have been. Normal to her. She does state that she takes an aspirin a day. She denies taking any NSAIDs and has no reflux problems. Patient states she is still fine. She takes daily walks. She denies chest pain, shortness of breath, syncope and dizziness. She states she has never had an EGD or colonoscopy. Patient is admitted for administration of packed red blood cells. She will have a surgical consult. Review of Systems - Constitutional Denies chills - Eyes Denies change in vision - ENT Denies difficulty swallowing - *Cardiovascular Denies chest pain - *Respiratory Denies cough - *Gastrointestinal Denies abdominal pain, Denies vomiting blood, Denies bright, red blood in stools, Denies black, tarry stools - *Genitourinary Denies blood in urine - *Neurologic Denies abnormal walking, Denies behavioral changes, Denies dizziness - Hematologic/Lymphatic Denies easy bleeding [facility] History Medical History: Reports:: Hyperlipidemia, Hypertension Denies:: Cancer, Chronic Obstructive Pulmonary Disease (COPD), Diabetes Mellitus Type 1, Diabetes Mellitus Type 2, MRSA *Have you ever received a pneumonia vaccine?: No *Have you received a flu vaccine this season?: No Other Medical History: Reports: Anemia, Hypothyroidism Other Surgeries: Yes: Hysterectomy-Total Amputation: No - *Social History Smoking Status: Current every day smoker Tobacco Type: cigarettes # Packs/Day (cigarettes): 1 Alcohol Intake: never *Occupational Status:: retired Housing: house Household Members: none *Travel in the last 8 weeks: None Family Hx:: Cancer Meds Home Medications Medication Instructions Recorded Confirmed Type Aspirin [Adult Low Dose Aspirin EC] 81 mg PO DAILY 04/05/21 04/05/21 History Pravastatin Sodium [Pravachol 40mg 40 mg PO HS 04/05/21 04/05/21 History Tablet] atenoloL [Atenolol 50mg Tab] 50 mg PO DAILY 04/05/21 04/05/21 History Allergies Allergy/AdvReac Type Severity Reaction Status Date / Time Penicillins Allergy Mild Verified 04/05/21 15:12 Exam Vital signs and Labs for Last 24 Hours: Temp Pulse Resp BP Pulse Ox 98.0 F 76 16 120/54 L 94 L 04/06/21 03:52 04/06/21 03:52 04/06/21 03:52 04/06/21 03:52 04/06/21 03:52 Laboratory Results - last 24 hr 04/05/21 00:03: Hgb 9.0 L, Hct 28.2 L 04/05/21 13:50: WBC 8.2, RBC 2.40 L, Hgb 6.6 L* D, Hct 21.2 L*, MCV 88.7, MCH 27.6, MCHC 31.1 L, RDW 16.2, Plt Count 329, MPV 9.4, Neut % (Auto) 65.1, Lymph % (Auto) 24.4, [place] % (Auto) 6.9, Eos % (Auto) 2.4, Baso % (Auto) 1.2, Neut # (Auto) 5.3, Lymph # (Auto) 2.0, [place] # (Auto) 0.6, Eos # (Auto) 0.2, Baso # (Auto) 0.1 04/05/21 13:50: Sodium 142, Potassium 4.3, Chloride 113 H, Carbon Dioxide 21 L, Anion Gap 12.3, BUN 45 H, Creatinine 1.30 H, Estimated Creat Clear 28, Estimated GFR 40 L, Est GFR ( Amer) 49 L, Glucose 91, Calcium 8.6 04/05/21 14:40: Stool Occult Blood Negative 04/05/21 14:58: SARS-CoV-2 (PCR) Not detected, Influenza A Untype (PCR) Not detected, Influenza Type B (PCR) Not detected 04/05/21 15:30: Blood Type A Positive, Antibody Screen Negative, Crossmatch (AHG) See Detail 04/05/21 : B
[2021-04-06 07:09] LABS: Basophils # 0.1 K/mm3 (0-0.2); Basophils % 1.1 % (0.1-2.0); Eosinophils # 0.2 K/mm3 (0.0-0.4); Eosinophils % 1.9 % (0.1-12.0); Hematocrit 30.4 % (37.0-47.0); Lymphocytes # 1.6 K/mm3 (0.7-4.5); Lymphocytes % 16.9 % (10-50); Mean Corpuscular HGB Conc 32.7 g/dL (31.8-35.4); Mean Corpuscular Hemoglobin 27.1 pg (27.0-31.2); Mean Corpuscular Volume 82.8 fl (81-99); Mean Platelet Volume 9.8 fl (7.4-10.4); Monocytes # 0.5 K/mm3 (0.1-1.0); Monocytes % 5.6 % (1.7-9.3); Neutrophils # 7.2 K/mm3 (1.8-7.8); Neutrophils % 74.5 % (37.0-80.0); Platelet Count 295 K/mm3 (142-424); Red Blood Count 3.67 M/mm3 (4.20-5.40); Red Cell Distribution Width 18.6 % (11.5-17.5); White Blood Count 9.6 K/mm3 (4.8-10.8)
[2021-04-06 07:10] LABS: Chloride 114 mmol/L (98-107); Sodium 143 mmol/L (136-145)
[2021-04-06 07:11] LABS: Potassium 4.6 mmoL/L (3.5-5.1)
[2021-04-06 07:13] LABS: Blood Urea Nitrogen 33 mg/dl (7-17); Creatinine Clearance Estimated 44 mL/min (50-200); Estimated Glomerular Filt Rate 49 ml/min (>60); GFR (African American) 59 ML/MIN (>60)
[2021-04-06 07:14] LABS: Anion Gap 11.6 mEq/L (5-15); Calcium 8.7 mg/dl (8.4-10.2); Carbon Dioxide 22 mmol/L (22.0-30.0); Glucose 86 mg/dl (74-100)
[2021-04-06 07:37] LABS: Hematocrit 28.2 % (37.0-47.0)
[2021-04-06 07:52] LABS: Hemoglobin 9.9 g/dL (12.2-16.2)
--- NOTE | 2021-04-06 08:28 | HMH.ACPN2 ---
Internal Medicine - PN: Subj *Date: 04/06/21 *Time: 08:28 Interval history: Patient states she is feeling well this morning. Her H&H improved with packed red blood cell administration. She denies any chest pain or shortness of breath. She is currently being taken down to surgery for an EGD. Exam Vital signs and Labs for Last 24 Hours: Temp Pulse Resp BP Pulse Ox 98.0 F 76 16 120/54 L 94 L 04/06/21 03:52 04/06/21 03:52 04/06/21 03:52 04/06/21 03:52 04/06/21 03:52 Laboratory Results - last 24 hr 04/05/21 00:03: Hgb Cancelled, Hct Cancelled 04/05/21 13:50: WBC 8.2, RBC 2.40 L, Hgb 6.6 L*, Hct 21.2 L*, MCV 88.7, MCH 27.6, MCHC 31.1 L, RDW 16.2, Plt Count 329, MPV 9.4, Neut % (Auto) 65.1, Lymph % (Auto) 24.4, [facility] % (Auto) 6.9, Eos % (Auto) 2.4, Baso % (Auto) 1.2, Neut # (Auto) 5.3, Lymph # (Auto) 2.0, [facility] # (Auto) 0.6, Eos # (Auto) 0.2, Baso # (Auto) 0.1 04/05/21 13:50: Sodium 142, Potassium 4.3, Chloride 113 H, Carbon Dioxide 21 L, Anion Gap 12.3, BUN 45 H, Creatinine 1.30 H, Estimated Creat Clear 28, Estimated GFR 40 L, Est GFR ( Amer) 49 L, Glucose 91, Calcium 8.6 04/05/21 14:40: Stool Occult Blood Negative 04/05/21 14:58: SARS-CoV-2 (PCR) Not detected, Influenza A Untype (PCR) Not detected, Influenza Type B (PCR) Not detected 04/05/21 15:30: Blood Type A Positive, Antibody Screen Negative, Crossmatch (AHG) See Detail 04/05/21 : Blood Type Confirm A Positive 04/06/21 00:03: Hgb 9.0 L D, Hct 28.2 L 04/06/21 06:41: WBC 9.6, RBC 3.67 L D, Hgb 9.9 L, Hct 30.4 L, MCV 82.8, MCH 27.1, MCHC 32.7, RDW 18.6 H, Plt Count 295, MPV 9.8, Neut % (Auto) 74.5, Lymph % (Auto) 16.9, [facility] % (Auto) 5.6, Eos % (Auto) 1.9, Baso % (Auto) 1.1, Neut # (Auto) 7.2, Lymph # (Auto) 1.6, [facility] # (Auto) 0.5, Eos # (Auto) 0.2, Baso # (Auto) 0.1 04/06/21 06:41: Sodium 143, Potassium 4.6, Chloride 114 H, Carbon Dioxide 22, Anion Gap 11.6, BUN 33 H D, Creatinine 1.10 H, Estimated Creat Clear 44, Estimated GFR 49 L, Est GFR ( Amer) 59 D, Glucose 86, Calcium 8.7 I & O for Last 24 hours: Intake & Output 04/03/21 04/04/21 04/05/21 04/06/21 11:59 11:59 11:59 11:59 Intake Total 676 / 676 Balance 676 / 676 Weight 135 lb - Constitutional no acute distress - *Routine Respiratory Exam Present: CTA bilaterally - *Routine Cardiovascular Exam Present: RRR - *Routine Abdominal Exam Present: soft, normoactive bowel sounds. Absent: tenderness - *Routine Extremities Exam Absent: cyanosis, clubbing, edema - *Routine Skin Exam Present: warm. Absent: rash - *Routine Neurological Exam Present: alert, oriented X3 Assessment and Plan (1) Anemia Status: Acute Category: Medical Code(s): D64.9 - Anemia, unspecified (2) HTN (hypertension) Status: Acute Category: Medical Code(s): I10 - Essential (primary) hypertension (3) Renal insufficiency Status: Acute Category: Medical Code(s): N28.9 - Disorder of kidney and ureter, unspecified - Assessment and plan all Dx Assessment and Plan for all problems:: Patient is down having an EGD.
--- NOTE | 2021-04-06 08:54 | HMH.SCOPE ---
- Procedure: Date: 04/06/21 Patient Date of :: 1945 Procedure Performed:: Esophagogastroduodenoscopy with biopsy Indications:: Anemia Performing Provider:: Mateo Browne MD Referring Provider:: Dr. Alonzo Sedation:: Monitored anesthesia care Procedure:: After informed consent was obtained the patient was taken to the endoscopy suite. Sedation ensued after the patient was transferred to the left lateral decubitus position. Pulse, blood pressure, and oxygen saturation were monitored throughout the procedure. The endoscope was advanced beyond the duodenal bulb. Retroflexion within the gastric lumen was accomplished. The gastroscope was carefully removed and the patient was transferred to recovery in stable condition. Please see findings and specimens below for detail. Findings:: Gastroesophageal junction at 41 cm Patchy focal inflammatory changes at gastroesophageal junction Fairly severe patchy distal gastric and prepyloric inflammation Shallow linear ulceration in duodenal bulb No sign of active or recent hemorrhage Specimens:: Prepyloric biopsy Antral biopsy Recommendations:: Proton pump inhibition Follow-up pathology Likely repeat EGD in 6-8 weeks Complications:: No immediate Estimated blood obtained (mL): 1
--- NOTE | 2021-04-06 09:16 | PC.NURSE ---
Pt arrived to the floor at this time from sx.
--- NOTE | 2021-04-06 13:10 | HMH.ANESCL ---
[facility] Anesthesia Checklist - Patient Identification Patient Identification: Arm Band - Structural Data Admitted From: Inpatient Planned Operative Procedure/s: EGD Consent for Planned Operative Procedure(s) Verified: Yes Verified Documents: Surgical Consent - NPO Status Verified Time NPO: 00:00 - Airway Assessment C-Spine Mobility Assessed: Yes TMJ Mobility Assessed: Yes Dentition: Poor Dentition - Neurological Assessment Level of Consciousness: Awake, Alert - Anesthesia Plan Anesthesia Risk discussed: Yes ASA Class: III Anesthesia Type: MAC [facility] History Medical History: Reports:: Hyperlipidemia, Hypertension Denies:: Cancer, Chronic Obstructive Pulmonary Disease (COPD), Diabetes Mellitus Type 1, Diabetes Mellitus Type 2, MRSA *Have you ever received a pneumonia vaccine?: No *Have you received a flu vaccine this season?: No Other Medical History: Reports: Anemia, Hypothyroidism Anesthesia experience/problems:: NONE Other Surgeries: Yes: Hysterectomy-Total Amputation: No - *Social History Smoking Status: Current every day smoker Tobacco Type: cigarettes # Packs/Day (cigarettes): 1 Alcohol Intake: never Substance Use Type: denies use *Occupational Status:: retired Housing: house Household Members: none *Travel in the last 8 weeks: None Family Hx:: Cancer
--- NOTE | 2021-04-06 16:36 | PC.NURSE ---
Pt has been pleasant and cooperative this shift. A&O X4. No complaints of pain or SOA. Pt is on room air with sats. >90%. Lungs CTA. No edema noted. Skin is C/D/I. Pt is post-EGD and is tolerating a soft diet well. Appetite is excellent and pt eats 90-100% of all meals. Abdomen is flat, soft, and non-tender. No N/V/D. Pt voids clear, yellow urine without issue. No BM thus far this shift. Pt ambulates independently to/from the bathroom and throughout the room. Pt has sat up in the recliner for several hours today. 18 G peripheral IV in the LT AC is patent and SL. VSS. Call light within reach. Will continue to monitor.
--- NOTE | 2021-04-06 21:03 | PC.NURSE ---
2100 pt pulled iv out and refused to let nurse start another.
[2021-04-07 04:00] VITALS: BP 106/51; PULSE 82; RESP 17; TEMP 36.7; O2SAT 97
--- NOTE | 2021-04-07 04:05 | PC.NURSE ---
shift summary pt is alert and oriented X4. pts lung sounds are clear with sats maintained 90% or above on room air. pt is able to ambulate to restroom with a cane and standby assist, urine is clear and yellow in color. pt pulled out her iv during shift but refused to let the nurse start another one. pt denies any pain, nausea, vomiting, or diarrhea. no acute changes will continue to monitor.
[2021-04-07 05:29] VITALS: BMI 26.0
--- NOTE | 2021-04-07 07:08 | P.PN_ITS ---
Subjective Narrative: She states that she feels fine . She is planning on going home today . Progress Note: A&P (1) Anemia Status: Acute (2) HTN (hypertension) Status: Acute (3) Renal insufficiency Status: Acute (4) Duodenal ulcer Status: Acute (5) Gastritis Status: Acute Assessment and Plan for All Diagnoses:: Continue proton pump inhibition Follow-up pathology Close outpatient follow-up with discussion about repeat EGD in 6-8 weeks and with discussion about need for colonoscopy Exam Vital signs and Labs for Last 24 Hours: Temp Pulse Resp BP Pulse Ox 98.0 F 82 17 106/51 L 97 04/07/21 04:00 04/07/21 04:00 04/07/21 04:00 04/07/21 04:00 04/07/21 04:00 Laboratory Results - last 24 hr 04/05/21 00:03: Hgb Cancelled, Hct Cancelled 04/05/21 13:50: Hgb 6.6 L* 04/06/21 00:03: Hgb 9.0 L D, Hct 28.2 L 04/06/21 06:41: WBC 9.6, RBC 3.67 L D, Hgb 9.9 L, Hct 30.4 L, MCV 82.8, MCH 27.1, MCHC 32.7, RDW 18.6 H, Plt Count 295, MPV 9.8, Neut % (Auto) 74.5, Lymph % (Auto) 16.9, [place] % (Auto) 5.6, Eos % (Auto) 1.9, Baso % (Auto) 1.1, Neut # (Auto) 7.2, Lymph # (Auto) 1.6, [place] # (Auto) 0.5, Eos # (Auto) 0.2, Baso # (Auto) 0.1 04/06/21 06:41: Sodium 143, Potassium 4.6, Chloride 114 H, Carbon Dioxide 22, Anion Gap 11.6, BUN 33 H D, Creatinine 1.10 H, Estimated Creat Clear 44, Estimated GFR 49 L, Est GFR ( Amer) 59 D, Glucose 86, Calcium 8.7 I & O for Last 24 hours: Intake & Output 04/04/21 04/05/21 04/06/21 04/07/21 11:59 11:59 11:59 11:59 Intake Total 676 / 676 840 / 840 Balance 809 / 634 840 / 840 Weight 135 lb 138 lb - Constitutional no acute distress - *Routine Respiratory Exam Absent: respiratory distress - *Routine Cardiovascular Exam Comments: Regular rate - *Routine Neurological Exam Present: alert - Routine Psychiatric Exam Present: normal affect
[2021-04-07 07:34] VITALS: BP 131/53; PULSE 79; RESP 17; TEMP 36.6; O2SAT 97
[2021-04-07 08:22] LABS: Chloride 114 mmol/L (98-107); Potassium 4.4 mmoL/L (3.5-5.1); Sodium 141 mmol/L (136-145)
--- NOTE | 2021-04-07 08:23 | HMH.ACPN2 ---
Internal Medicine - PN: Subj *Date: 04/07/21 *Time: 08:23 Interval history: Patient states she is feeling well this morning. She denies any pain and wants to go home. She was able to eat and she slept well. Exam Vital signs and Labs for Last 24 Hours: Temp Pulse Resp BP Pulse Ox 97.9 F 79 17 131/53 L 97 04/07/21 07:34 04/07/21 07:34 04/07/21 07:34 04/07/21 07:34 04/07/21 07:34 I & O for Last 24 hours: Intake & Output 04/04/21 04/05/21 04/06/21 04/07/21 11:59 11:59 11:59 11:59 Intake Total 676 / 676 1080 / 1080 Balance 676 / 676 1080 / 1080 Weight 135 lb 138 lb - Constitutional no acute distress - *Routine Respiratory Exam Present: CTA bilaterally - *Routine Cardiovascular Exam Present: RRR - *Routine Abdominal Exam Present: soft, normoactive bowel sounds. Absent: tenderness - *Routine Extremities Exam Present: edema. Absent: cyanosis, clubbing - *Routine Skin Exam Present: warm. Absent: rash - *Routine Neurological Exam Present: alert, oriented X3 Assessment and Plan (1) Anemia Status: Acute Category: Medical Code(s): D64.9 - Anemia, unspecified (2) HTN (hypertension) Status: Acute Category: Medical Code(s): I10 - Essential (primary) hypertension (3) Renal insufficiency Status: Acute Category: Medical Code(s): N28.9 - Disorder of kidney and ureter, unspecified (4) Duodenal ulcer Status: Acute Category: Medical Code(s): K26.9 - Duodenal ulcer, unspecified as acute or chronic, without hemorrhage or perforation (5) Gastritis Status: Acute Category: Medical Code(s): K29.70 - Gastritis, unspecified, without bleeding - Assessment and plan all Dx Assessment and Plan for all problems:: Patient can likely be discharged today with follow-up on an outpatient basis with surgery for repeat EGD and possibly colonoscopy in 6 to 8 weeks. She will need to be continued on a PPI. She may need a dose of Lasix due to some lower extremity edema after getting her blood transfusion. Will discuss with Dr. Alonzo.
[2021-04-07 08:24] LABS: Blood Urea Nitrogen 30 mg/dl (7-17); Creatinine Clearance Estimated 41 mL/min (50-200); Estimated Glomerular Filt Rate 44 ml/min (>60); GFR (African American) 53 ML/MIN (>60)
[2021-04-07 08:25] LABS: Anion Gap 11.4 mEq/L (5-15); Calcium 8.7 mg/dl (8.4-10.2); Carbon Dioxide 20 mmol/L (22.0-30.0); Glucose 115 mg/dl (74-100)
[2021-04-07 10:32] LABS: Basophils # 0.1 K/mm3 (0-0.2); Basophils % 0.7 % (0.1-2.0); Eosinophils # 0.2 K/mm3 (0.0-0.4); Eosinophils % 1.8 % (0.1-12.0); Hematocrit 32.3 % (37.0-47.0); Hemoglobin 9.9 g/dL (12.2-16.2); Lymphocytes # 1.3 K/mm3 (0.7-4.5); Lymphocytes % 15.4 % (10-50); Mean Corpuscular HGB Conc 30.7 g/dL (31.8-35.4); Mean Corpuscular Hemoglobin 26.9 pg (27.0-31.2); Mean Corpuscular Volume 87.6 fl (81-99); Mean Platelet Volume 10.6 fl (7.4-10.4); Monocytes # 0.7 K/mm3 (0.1-1.0); Monocytes % 8.4 % (1.7-9.3); Neutrophils # 6.2 K/mm3 (1.8-7.8); Neutrophils % 73.6 % (37.0-80.0); Platelet Count 303 K/mm3 (142-424); Red Blood Count 3.69 M/mm3 (4.20-5.40); Red Cell Distribution Width 18.2 % (11.5-17.5); White Blood Count 8.5 K/mm3 (4.8-10.8)
--- NOTE | 2021-04-07 16:13 | HMH.DCSUM ---
General - General Admission date:: 04/05/21 Discharge date: 04/07/21 HPI HPI: Ms Colon is a 65 year old female with a history of HTN, hyperlipidemia, and hypothyroidism who was brought to [facility] emergency room for evaluation via ambulance due to critical lab values obtained by primary physician during a routine visit. With evaluation in the emergency room she was found to have a hemoglobin of 6.6. Patient denies any source of bleeding to include hematemesis, melena, hematochezia, hematuria. She denies abdominal pain, nausea, and vomiting. She has had no diarrhea and stools have been. Normal to her. She does state that she takes an aspirin a day. She denies taking any NSAIDs and has no reflux problems. Patient states she is still fine. She takes daily walks. She denies chest pain, shortness of breath, syncope and dizziness. She states she has never had an EGD or colonoscopy. Patient is admitted for administration of packed red blood cells. She will have a surgical consult. Hospital Course Hospital Course: The patient was admitted and transfused with 3 units of packed red blood cells. Dr. Browne was consulted and felt she needed an EGD. He performed the EGD on 04/06/2021 and found patchy focal inflammatory changes at the GE junction and fairly severe patchy distal gastric and prepyloric inflammation with a shallow linear ulceration in the duodenal bulb. There was no sign of active or recent hemorrhage. He did take biopsies and recommended the patient be started on a PPI and have a repeat EGD in 6 to 8 weeks. The patient tolerated the procedure well. Her H&H improved with packed red blood cell administration. By 04/07/2021, she felt well and wanted to go home. Dr. Browne felt she could be discharged and will need a repeat EGD in 6 to 8 weeks and possibly a colonoscopy as well. She did receive a one-time dose of Lasix due to some lower extremity edema, likely from the blood transfusion. She was stable to be discharged home. She will follow-up with Dr. Browne in his office. Objective Vital signs: Temp Pulse Resp BP Pulse Ox 97.9 F 79 17 131/53 L 97 04/07/21 07:34 04/07/21 07:34 04/07/21 07:34 04/07/21 07:34 04/07/21 07:34 Narrative: - Constitutional no acute distress Comments: appears comfortable - *Routine HEENT Exam Head: Present: normocephalic, atraumatic Eye: Present: PERRL. Absent: conjunctival icterus, scleral injection ENT: Present: mucous membranes moist, oropharynx clear - *Routine Neck Exam Present: supple. Absent: carotid bruit, lymphadenopathy, thyromegaly - *Routine Respiratory Exam Present: CTA bilaterally (A&P) - *Routine Cardiovascular Exam Present: RRR, murmur - *Routine Abdominal Exam Present: soft, normoactive bowel sounds. Absent: tenderness, distended - *Routine Rectal Exam Rectal:: deferred - *Routine Genitalia Exam Genitalia:: deferred - *Routine Extremities Exam Present: edema. Absent: calf tenderness - *Routine Neurological Exam Present: alert, oriented X3 Results Labs on day of discharge: Labs from last 24 hours 04/07/21 04/07/21 07:52 07:52 WBC 8.5 RBC 3.69 L Hgb 9.9 L Hct 32.3 L MCV 87.6 MCH 26.9 L MCHC 30.7 L RDW 18.2 H Plt Count 303 MPV 10.6 H Neut % (Auto) 73.6 Lymph % (Auto) 15.4 [place] % (Auto) 8.4 Eos % (Auto) 1.8 Baso % (Auto) 0.7 Neut # (Auto) 6.2 Lymph # (Auto) 1.3 [place] # (Auto) 0.7 Eos # (Auto) 0.2 Baso # (Auto) 0.1 Sodium 141 Potassium 4.4 Chloride 114 H Carbon Dioxide 20 L Anion Gap 11.4 BUN 30 H Creatinine 1.20 H Estimated Creat Clear 41 Estimated GFR 44 L Est GFR ( Amer) 53 L Glucose 115 H Calcium 8.7 DS: Diagnosis - Discharge Diagnosis (1) Anemia Status: Acute (2) HTN (hypertension) Status: Acute (3) Renal insufficiency Status: Acute (4) Duodenal ulcer Status: Acute
== END 2021-04-07 10:58 | disposition home or self-care (01) ==
LOC: ER 14:53 → 2ND 15:36
PROVIDERS: Surgery; Admitting Provider Family Medicine; Emergency Provider Internal Medicine; Visit Provider Family Medicine
PROC: 0DJ08ZZ Inspection of Upper Intestinal Tract, Via Natural or Artificial Opening Endoscopic (ICD-10-PCS; CPT 43235; principal; 2021-04-06 11:30)
DX: D64.9 Anemia, unspecified (principal); I10 Essential (primary) hypertension; E03.9 Hypothyroidism, unspecified; E78.5 Hyperlipidemia, unspecified; F17.210 Nicotine dependence, cigarettes, uncomplicated; Z20.822 Contact with and (suspected) exposure to COVID-19
CPT/HCPCS: 43239; 36415; 80048; 82272; 85014; 85018; 85025; 86850; 88305; 99284; 99291; G0328; G0378; P9016; U0003

== ENCOUNTER 2021-07-13 00:17 | Emergency (ER) | payer MEDICARE, SELFPAY ==
[2021-07-13] VITALS (10 sets, daily range): BP systolic 104–132; BP diastolic 43–82; PULSE 63–86; RESP 16–20; TEMP 36.8; O2SAT 94–98; BMI 23.6
--- NOTE | 2021-07-13 00:31 | ECG_ITS ---
APPROVED REPORT Exam: Resting ECG HR:69 bpm ECG Measurements Heart Rate 69 AXES WI 198 P 44 QRSd 96 QRS -68 QT 448 T -16 QTc 480 Conclusion Normal sinus rhythm Left anterior fascicular block Prolonged QT Abnormal ECG Electronically signed by : Walter Murillo MD 07/13/2021 17:48:30
--- NOTE | 2021-07-13 01:05 | PC.NURSE ---
s/w complaint supervisor at [facility], requesting records from recent hospital stay.
--- NOTE | 2021-07-13 01:09 | CT_ITS ---
PROCEDURE INFORMATION: Exam: CT Head Without Contrast Exam date and time: 07/13/2021 1:09 AM Age: 75 years old Clinical indication: Syncope and collapse TECHNIQUE: Imaging protocol: Computed tomography of the head without contrast. 3D rendering (Not supervised by radiologist): MIP and/or 3D reconstructed images were created by the technologist. Radiation optimization: All CT scans at this facility use at least one of these dose optimization techniques: automated exposure control; mA and/or kV adjustment per patient size (includes targeted exams where dose is matched to clinical indication); or iterative reconstruction. COMPARISON: CT HEAD/BRAIN WO CON 01/29/2020 12:51 AM FINDINGS: Brain: Mild central and peripheral cerebral atrophy. There are ill-defined areas of decreased attenuation noted within lateral periventricular white matter, compatible with chronic deep white matter ischemic change. There are 3 focal areas of encephalomalacia within the simpson radiata. Two are on the left and one is on the right. These are felt to represent areas of organized lacunar infarction. They were seen on prior examination of 01/29/2020. No evidence of acute intracranial bleed or focal cerebral edema. Cerebral ventricles: Mild atrophy related global ventriculomegaly. Paranasal sinuses: Bilateral maxillary sinus retention cysts are noted. No fluid levels. Mastoid air cells: Visualized mastoid air cells are well aerated. Vasculature: Intraranial artery density is normal. There is a well-circumscribed 5 mm calcification adjacent to the M1 segment of the left middle cerebral artery. It was present on prior examination and unchanged. Bones/joints: Unremarkable. No acute fracture. Soft tissues: Unremarkable. IMPRESSION: No acute intracranial abnormality. No interval change since 01/29/2020.
[2021-07-13 01:18] LABS: Basophils # 0.1 K/mm3 (0-0.2); Basophils % 0.3 % (0.1-2.0); Eosinophils # 0.1 K/mm3 (0.0-0.4); Eosinophils % 0.3 % (0.1-12.0); Hematocrit 36.1 % (37.0-47.0); Hemoglobin 10.6 g/dL (12.2-16.2); Lymphocytes # 0.8 K/mm3 (0.7-4.5); Lymphocytes % 5.3 % (10-50); Mean Corpuscular HGB Conc 29.5 g/dL (31.8-35.4); Mean Corpuscular Hemoglobin 24.6 pg (27.0-31.2); Mean Corpuscular Volume 83.3 fl (81-99); Mean Platelet Volume 10.1 fl (7.4-10.4); Monocytes # 0.4 K/mm3 (0.1-1.0); Monocytes % 2.8 % (1.7-9.3); Neutrophils # 13.9 K/mm3 (1.8-7.8); Neutrophils % 91.3 % (37.0-80.0); Platelet Count 755 K/mm3 (142-424); Red Blood Count 4.33 M/mm3 (4.20-5.40); Red Cell Distribution Width 21.2 % (11.5-17.5); White Blood Count 15.2 K/mm3 (4.8-10.8)
[2021-07-13 01:21] LABS: Appearance,Urine CLEAR (Clear); Bilirubin,Urine Negative (Negative); Blood, Urine Negative (Negative); Color,Urine YELLOW (Yellow); Glucose,Urine (UA) Negative (Negative); Ketones,Urine Negative (Negative); Leukocyte Esterase,Urine Negative (Negative); Microscopic, Urine URINE MICROSCOPIC (MICROSCOPIC); Nitrate,Urine Negative (Negative); Protein,Urine Negative (Negative); Urobilinogen,Urine 0.2 EU/dl (0.2)
[2021-07-13 01:23] LABS: Alanine Aminotransferase 15 U/L (12-78); Albumin Level 3.7 g/dl (3.5-5.0); Albumin/Globulin Ratio 1.1 (1.1-1.8); Alkaline Phosphatase 87 U/L (38-126); Anion Gap 12.3 mEq/L (5-15); Aspartate Amino Transferase 23 U/L (14-36); Bilirubin,Total 0.2 mg/dl (0.2-1.3); Blood Urea Nitrogen 31 mg/dl (7-17); Calcium 8.8 mg/dl (8.4-10.2); Carbon Dioxide 25 mmol/L (22.0-30.0); Chloride 107 mmol/L (98-107); Creatinine Clearance Estimated 45 mL/min (50-200); Estimated Glomerular Filt Rate 54 ml/min (>60); GFR (African American) 66 ML/MIN (>60); Globulin 3.5 g/dL (1.3-3.2); Glucose 162 mg/dl (74-100); Magnesium 2.1 mg/dl (1.6-2.3); Potassium 3.3 mmoL/L (3.5-5.1); Sodium 141 mmol/L (136-145); Total Protein,Serum 7.2 g/dl (6.3-8.2)
[2021-07-13 01:24] LABS: Lactic Acid 1.4 mmol/L (0.7-2.1)
[2021-07-13 01:25] LABS: MANUAL DIFFERENTIAL MANUAL DIFFERENTIAL (MANUAL DIFF)
[2021-07-13 01:28] LABS: C-Reactive Protein 2.3 mg/L (0-4)
[2021-07-13 01:40] LABS: Troponin I < 0.01 ng/ml (0.00-0.034)
[2021-07-13 01:40] LABS: Bacteria,Urine Trace /lpf; RBC,Urine Occasional #/hpf (0-3)
[2021-07-13 01:42] LABS: Procalcitonin 0.096 ng/mL (0.0-2.0)
--- NOTE | 2021-07-13 01:51 | HMH.EDSYNC ---
ED Disposition Clinical Impression: Episode of syncope Qualifiers: Syncope type: unspecified Qualified Code(s): R55 - Syncope and collapse Disposition: Home, Self-Care Condition on Discharge: Good Instructions: DI for Syncope in Adults (Fainting) Additional Instructions: see card for follow up Referrals: Crystal Trujillo [Primary Care Provider] - Nii Kaminski MD [Staff Physician] - Alfonso Wolfe MD [Staff Physician] - - Critical Care Critical Care Time: No Attestation: On 07/13/21, the high probability of a clinically significant, sudden or life threatening deterioration of the following system(s) required my full and direct attention, intervention and personal management. The time I documented below is in addition to time spent performing reported procedures but includes the following listed in this critical care notation. Medical Decision Making - Medical Records Medical records reviewed: Yes: I reviewed the patient's medical records. - Jaime Inquiry Pt receiving controlled substance: No Vital Signs: 07/13/21 00:15 07/13/21 00:56 07/13/21 01:01 Temperature 98.2 F Temperature Source Oral Pulse Rate 68 77 Pulse Rate [Right] 77 Respiratory Rate 20 Blood Pressure 132/63 124/63 Blood Pressure [Right Arm] 116/61 Blood Pressure Mean [Right Arm] 79 Blood Pressure Source Blood Pressure Position 02 Sat by Pulse Oximetry 95 96 98 Oxygen Delivery Method Room Air Room Air Room Air 07/13/21 01:31 07/13/21 02:10 07/13/21 02:11 Temperature Temperature Source Pulse Rate 68 Pulse Rate [Right] Respiratory Rate Blood Pressure 104/49 L 112/51 L 122/60 Blood Pressure [Right Arm] Blood Pressure Mean [Right Arm] Blood Pressure Source Automatic Cuff Automatic Cuff Blood Pressure Position Supine Sitting 02 Sat by Pulse Oximetry 94 L Oxygen Delivery Method Room Air 07/13/21 02:12 07/13/21 02:14 07/13/21 02:30 Temperature Temperature Source Pulse Rate 86 63 Pulse Rate [Right] Respiratory Rate Blood Pressure 114/64 132/82 104/43 L Blood Pressure [Right Arm] Blood Pressure Mean [Right Arm] Blood Pressure Source Automatic Cuff Blood Pressure Position Standing 02 Sat by Pulse Oximetry 94 L 96 Oxygen Delivery Method Room Air Room Air - Lab Data Lab results reviewed: Yes: I reviewed the patient's lab results. Lab Results 07/13/21 00:36: WBC 15.2 H, RBC 4.33, Hgb 10.6 L, Hct 36.1 L, MCV 83.3, MCH 24.6 L, MCHC 29.5 L, RDW 21.2 H, Plt Count 755 H, MPV 10.1, Neut % (Auto) 91.3 H, Lymph % (Auto) 5.3 L, Real % (Auto) 2.8, Eos % (Auto) 0.3, Baso % (Auto) 0.3, Neut # (Auto) 13.9 H, Lymph # (Auto) 0.8, Real # (Auto) 0.4, Eos # (Auto) 0.1, Baso # (Auto) 0.1, Total Counted 100, Neutrophils % (Manual) 95 H, Lymphocytes % (Manual) 3 L, Monocytes % (Manual) 1 L, Basophils % (Manual) 1.0, Platelet Estimate Normal, RBC Morphology Not Reportable, Anisocytosis 1+, Stomatocytes 1+, ESR 26 07/13/21 00:36: Sodium 141, Potassium 3.3 L, Chloride 107, Carbon Dioxide 25, Anion Gap 12.3, BUN 31 H, Creatinine 1.00, Estimated Creat Clear 45, Estimated GFR 54 L, Est GFR ( Amer) 66, Glucose 162 H, Calcium 8.8, Magnesium 2.1, Total Bilirubin 0.2, AST 23, ALT 15, Alkaline Phosphatase 87, Troponin I < 0.01, C-Reactive Protein 2.3, Total Protein 7.2, Albumin 3.7, Globulin 3.5 H, Albumin/Globulin Ratio 1.1, Procalcitonin 0.096 07/13/21 00:36: Lactate 1.4 07/13/21 01:09: Urine Color Yellow, Urine Appearance Clear, Urine pH 6.0, Ur Specific [place] 1.020, Urine Protein Negative, Urine Glucose (UA) Negative, Urine Ketones Negative, Urine Blood Negative, Urine Nitrate Negative, Urine Bilirubin Negative, Urine Urobilinogen 0.2, Ur Leukocyte Esterase Negative, Urine RBC Occasional, Urine Bacteria Trace Result diagrams: 07/13/21 00:36 07/13/21 00:36 Orders (Tests/Meds): ED MEDICATIONS Generic Name Dose Route Start Last Admin Trade Name Freq PRN Reason Stop Dose A
[2021-07-13 01:57] LABS: Erythrocyte Sedimentation Rate 26 mm/hr (0-30)
[2021-07-13 02:01] LABS: Lymphocytes % 3 % (10-50); Monocytes % 1 % (2-9); Neutrophils % 95 % (42-76); Platelet Estimate Normal; Total Cells Counted 100
[2021-07-13 02:02] LABS: Anisocytosis 1+; Stomatocytes 1+
--- NOTE | 2021-07-13 02:39 | PC.NURSE ---
Dr. Mcintosh speaking with Dr. Murillo at this time.
--- NOTE | 2021-07-13 03:22 | PC.NURSE ---
rt @ bedside applying holter monitor
[2021-07-15 03:39] LABS: Peripheral Smear Review Scanned Result
== END 2021-07-13 03:48 | disposition home or self-care (01) ==
PROVIDERS: Emergency Provider Emergency Medicine; PCP Nurse Practitioner Family
DX: R55 Syncope and collapse (principal); E78.5 Hyperlipidemia, unspecified; I10 Essential (primary) hypertension; F17.210 Nicotine dependence, cigarettes, uncomplicated
CPT/HCPCS: 70450; 80053; 81001; 83605; 83735; 84145; 84484; 85007; 85025; 85651; 86140; 87040; 93005; 93225; 93226; 96365; 96366; 99283; J2405

== ENCOUNTER 2021-07-14 20:00 | Inpatient (IN) | payer MEDICARE, SELFPAY ==
[2021-07-14] VITALS (15 sets, daily range): BP systolic 70–171; BP diastolic 46–139; PULSE 78–126; RESP 23–37; TEMP 37.8–38.7; O2SAT 90–96; BMI 24.9
--- NOTE | 2021-07-14 20:11 | ECG_ITS ---
APPROVED REPORT Exam: Resting ECG HR:127 bpm ECG Measurements Heart Rate 127 AXES ME 174 P 52 QRSd 98 QRS -54 QT 300 T 68 QTc 436 Conclusion Age and gender specific ECG analysis Undetermined rhythm Left axis deviation ST elevation, consider anterior injury or acute infarct ACUTE PA Abnormal ECG Electronically signed by : Walter Murillo MD 07/15/2021 09:45:47
--- NOTE | 2021-07-14 20:30 | XR_ITS ---
PROCEDURE INFORMATION: Exam: XR Chest Exam date and time: 07/14/2021 8:30 PM Age: 75 years old Clinical indication: Device placement; Ett placement (vent status); Additional info: Intubation unresponsive TECHNIQUE: Imaging protocol: XR of the chest. Views: 1 view. COMPARISON: CR XR CHEST PORTABLE 01/29/2020 1:09 AM FINDINGS: There is an endotracheal tube with its tip 2 cm above the chava. It should be withdrawn 2-3 cm. Lungs: Limited inspiration. There are diffuse interstitial airspace opacities identified within both lung montes, mainly within both mid and lower lung zones. This could represent infiltration, interstitial edema, or atelectasis. Pleural spaces: Unremarkable. No pleural effusion. No pneumothorax. Heart/Mediastinum: Unremarkable. No cardiomegaly. Bones/joints: There are degenerative changes noted within the thoracic spine. IMPRESSION: Endotracheal tube 2 cm above the chava. It should be withdrawn 2-3 cm. Diffuse interstitial airspace opacities. This could represent infiltration, interstitial edema, or atelectasis. Progress examination is suggested.
[2021-07-14 20:43] LABS: Coronavirus 19, PCR Not Detected (NotDetected); Influenza A, PCR Not Detected (NotDetected); Influenza B, PCR Not Detected (NotDetected); Microscopic, Urine URINE MICROSCOPIC (MICROSCOPIC)
--- NOTE | 2021-07-14 20:43 | HMH.EDSOB ---
ED Disposition Clinical Impression: Acute exacerbation of chronic obstructive airways disease, Severe sepsis with acute organ dysfunction, Septic shock Community acquired pneumonia Qualifiers: Laterality: right Lung location: lower lobe of lung Qualified Code(s): J18.9 - Pneumonia, unspecified organism Respiratory failure with hypercapnia Qualifiers: Chronicity: acute on chronic Qualified Code(s): J96.22 - Acute and chronic respiratory failure with hypercapnia Disposition: Admitted As Inpatient Condition on Discharge: Serious Referrals: Crystal Trujillo [Primary Care Provider] - - Critical Care Critical Care Time: Yes Attestation: On 07/14/21, the high probability of a clinically significant, sudden or life threatening deterioration of the following system(s) required my full and direct attention, intervention and personal management. The time I documented below is in addition to time spent performing reported procedures but includes the following listed in this critical care notation. Total Critical Care Time: 60 Vital system(s) involved:: Respiratory Failure My critical care processes included: Assessment & monitoring of V/S, Initial and Re-exams, Coordinating Care, Medication Orders and management, Documentation Medical Decision Making - Medical Records Medical records reviewed: Yes: I reviewed the patient's medical records. - Jaime Inquiry Pt receiving controlled substance: No Vital Signs: 07/14/21 20:23 07/14/21 21:00 07/14/21 21:29 Temperature 101.7 F H Temperature Source Rectal Pulse Rate 126 H 116 H Pulse Rate [Apical] 114 H Respiratory Rate 33 H 37 H 30 H Blood Pressure 170/139 H 171/139 H Blood Pressure [Right Arm] 150/86 H Blood Pressure Mean Blood Pressure Mean [Right Arm] 107 Blood Pressure Source [Right Arm] Manual Cuff/ Auscultation Blood Pressure Position [Right Arm] Supine 02 Sat by Pulse Oximetry 96 90 L 90 L Oxygen Delivery Method Ambu-Bag Ambu-Bag BiPAP 07/14/21 21:31 07/14/21 21:40 07/14/21 21:51 Temperature Temperature Source Pulse Rate 113 H 110 H Pulse Rate [Apical] Respiratory Rate 30 H 24 Blood Pressure 70/47 L 85/55 L 78/48 L Blood Pressure [Right Arm] Blood Pressure Mean 54 Blood Pressure Mean [Right Arm] Blood Pressure Source [Right Arm] Blood Pressure Position [Right Arm] 02 Sat by Pulse Oximetry 91 L 91 L Oxygen Delivery Method BiPAP BiPAP - Lab Data Lab results reviewed: Yes: I reviewed the patient's lab results. Lab Results 07/14/21 20:24: Specimen Source Right femoral, O2 % 100, ABG pH 6.91 L*, ABG pCO2 116.3 H, ABG pO2 304.6 H, ABG HCO3 22.6, ABG Total CO2 26.2, ABG O2 Saturation 100, ABG Base Excess -10.2 L, Shoaib Test Unacceptable 07/14/21 20:30: WBC 11.6 H, RBC 4.72, Hgb 11.6 L, Hct 40.3, MCV 85.4, MCH 24.7 L, MCHC 28.9 L, RDW 20.1 H, Plt Count 751 H, MPV 9.1, Neut % (Auto) 78.9, Lymph % (Auto) 15.9, [place] % (Auto) 2.9, Eos % (Auto) 0.9, Baso % (Auto) 1.3, Neut # (Auto) 9.2 H, Lymph # (Auto) 1.9, [place] # (Auto) 0.3, Eos # (Auto) 0.1, Baso # (Auto) 0.2, ESR 19 07/14/21 20:30: Sodium 139, Potassium 4.5 D, Chloride 106, Carbon Dioxide 23, Anion Gap 14.5, BUN 17 D, Creatinine 0.90, Estimated Creat Clear 52, Estimated GFR 61, Est GFR ( Amer) 74, Glucose 267 H, Calcium 8.3 L, Total Bilirubin 0.4, Direct Bilirubin 0.2, Conjugated Bilirubin 0.0, Indirect Bilirubin 0.2, Unconjugated Bilirubin 0.2, AST 32 D, ALT 16, Alkaline Phosphatase 86, Troponin I < 0.01, C-Reactive Protein 10.1 H D, Total Protein 7.2, Albumin 3.7 07/14/21 20:30: Lactate 2.0 07/14/21 20:30: SARS-CoV-2 (PCR) Not detected, Influenza A Untype (PCR) Not detected, Influenza Type B (PCR) Not detected 07/14/21 20:30: Urine Color Yellow, Urine Appearance Clear, Urine pH 7.0, Ur Specific [place] 1.025, Urine Protein 2+, Urine Glucose (UA) Negative, Urine Ketones Negative, Urine Blood Trace-i, Urine Nitrate Negative, Urine Bilirubin Negative, Urine Urobilinogen 0.2
[2021-07-14 20:44] LABS: Basophils # 0.2 K/mm3 (0-0.2); Basophils % 1.3 % (0.1-2.0); Eosinophils # 0.1 K/mm3 (0.0-0.4); Eosinophils % 0.9 % (0.1-12.0); Hematocrit 40.3 % (37.0-47.0); Hemoglobin 11.6 g/dL (12.2-16.2); Lymphocytes # 1.9 K/mm3 (0.7-4.5); Lymphocytes % 15.9 % (10-50); Mean Corpuscular HGB Conc 28.9 g/dL (31.8-35.4); Mean Corpuscular Hemoglobin 24.7 pg (27.0-31.2); Mean Corpuscular Volume 85.4 fl (81-99); Mean Platelet Volume 9.1 fl (7.4-10.4); Monocytes # 0.3 K/mm3 (0.1-1.0); Monocytes % 2.9 % (1.7-9.3); Neutrophils # 9.2 K/mm3 (1.8-7.8); Neutrophils % 78.9 % (37.0-80.0); Red Blood Count 4.72 M/mm3 (4.20-5.40); Red Cell Distribution Width 20.1 % (11.5-17.5); White Blood Count 11.6 K/mm3 (4.8-10.8)
[2021-07-14 20:49] LABS: Platelet Count 751 K/mm3 (142-424)
--- NOTE | 2021-07-14 20:51 | PC.NURSE ---
1999- Pt arrived via EMS for possible STEMI and SOA. Pt was GCS of 6 on arrival and being ventilated via ambu bag by EMS personnel. Initial vitals of 150/86 HR-114 O2-96 RR-33 Pt cyanotic and modeling with decreased cap refill. IV in place by EMS in Left ac 2000-MD beside 2006- Pt intubated with 7 ETT at 24. Bilateral breath sounds auscultated. Positive color change on CO2 detector. 2007- EKG being reviewed by MD. Pt placed on Zoll 2009- ABG drawn 2013- Radiology at bedside for chest xray. reviewed and orders to pull ETT back 2in. 2018- Finger stick of 284 2018- Rectal temp of 101.7 2019. Verbal order for 2mg Versed IV once from MD Arnaldo 2020- Fenton placed by GILBERTO Chiang Clear, Yellow urine noted. 2023- 18g IV in right ac. Labs collected including BC and lactic
[2021-07-14 20:52] LABS: Appearance,Urine CLEAR (Clear); Bilirubin,Urine Negative (Negative); Blood, Urine TRACE-I (Negative); Color,Urine YELLOW (Yellow); Glucose,Urine (UA) Negative (Negative); Ketones,Urine Negative (Negative); Leukocyte Esterase,Urine Negative (Negative); Nitrate,Urine Negative (Negative); Protein,Urine 2+ (Negative); Specific Gravity, Urine 1.025 (1.005-1.030); Urobilinogen,Urine 0.2 EU/dl (0.2)
[2021-07-14 20:54] LABS: Squamous Epithelial Cell,Urine Occasional #/hpf (0-5)
[2021-07-14 20:55] LABS: Alanine Aminotransferase 16 U/L (12-78); Albumin Level 3.7 g/dl (3.5-5.0); Alkaline Phosphatase 86 U/L (38-126); Anion Gap 14.5 mEq/L (5-15); Aspartate Amino Transferase 32 U/L (14-36); Bilirubin,Direct 0.2 mg/dl (0.0-0.4); Bilirubin,Indirect 0.2 mg/dL (0.0-0.9); Bilirubin,Total 0.4 mg/dl (0.2-1.3); Bilirubin,Unconjugated 0.2 mg/dL (0.0-1.1); Blood Urea Nitrogen 17 mg/dl (7-17); Calcium 8.3 mg/dl (8.4-10.2); Carbon Dioxide 23 mmol/L (22.0-30.0); Chloride 106 mmol/L (98-107); Creatinine Clearance Estimated 52 mL/min (50-200); Estimated Glomerular Filt Rate 61 ml/min (>60); GFR (African American) 74 ML/MIN (>60); Glucose 267 mg/dl (74-100); Potassium 4.5 mmoL/L (3.5-5.1); Sodium 139 mmol/L (136-145); Total Protein,Serum 7.2 g/dl (6.3-8.2)
[2021-07-14 20:56] LABS: ABG Base Excess -10.2 mmol/L (-2.4-2.3); ABG HCO3 22.6 mmhg (22.0-26.0); ABG Oxygen Saturation 100 % (90-100); ABG PO2 304.6 mmhg (80-100); ABG TCO2 26.2 mmhg (23-27); Source Right Femoral
[2021-07-14 20:57] LABS: ABG PCO2 116.3 mmhg (35.0-45.0); ABG PH 6.91 mmol/L (7.35-7.45); Oxygen 100 %
--- NOTE | 2021-07-14 21:00 | PC.NURSE ---
Pt extubated and placed on BIPAP
[2021-07-14 21:01] LABS: C-Reactive Protein 10.1 mg/L (0-4)
[2021-07-14 21:12] LABS: Erythrocyte Sedimentation Rate 19 mm/hr (0-30)
[2021-07-14 21:14] LABS: Troponin I < 0.01 ng/ml (0.00-0.034)
--- NOTE | 2021-07-14 21:43 | PC.NURSE ---
manual BP 78/48 rt brachial
[2021-07-14 22:03] LABS: ABG Base Excess -6.5 mmol/L (-2.4-2.3); ABG HCO3 19.2 mmhg (22.0-26.0); ABG Oxygen Saturation 92 % (90-100); ABG PCO2 35.5 mmhg (35.0-45.0); ABG PH 7.35 mmol/L (7.35-7.45); ABG PO2 65.6 mmhg (80-100); ABG TCO2 20.2 mmhg (23-27)
[2021-07-14 22:06] LABS: Oxygen 40 %; Source Right Radial; Tidal Volume BIPAP 16/5; Vent Rate 24
--- NOTE | 2021-07-14 22:16 | PC.NURSE ---
MD made aware of low BP. Sepsis fluid bolus started at this time.
--- NOTE | 2021-07-14 23:04 | PC.NURSE ---
Paging Scottie at this time
--- NOTE | 2021-07-14 23:08 | PC.NURSE ---
speaking with Dr. Rubin
--- NOTE | 2021-07-14 23:18 | PC.NURSE ---
Called and spoke with son and updated on POC
--- NOTE | 2021-07-14 23:18 | PC.NURSE ---
Андрей,Rn updating family on pt condition. Pt is becoming more alert and is able to tell this RN her name and . Sepsis bolus continues to infuse per MAR. House notified of need for bed assignment.
[2021-07-14 23:50] LABS: Troponin I 0.08 ng/ml (0.00-0.034)
[2021-07-15] VITALS (28 sets, daily range): BP systolic 77–157; BP diastolic 48–86; PULSE 70–107; RESP 18–25; TEMP 36.4–37.2; O2SAT 91–99; BMI 22.6
--- NOTE | 2021-07-15 00:19 | PC.NURSE ---
Arnaldo speaking to Scottie at this time
--- NOTE | 2021-07-15 02:14 | PC.NURSE ---
Report called to GILBERTO Swann at this time
--- NOTE | 2021-07-15 02:20 | PC.NURSE ---
Pt's BP started to respond prior to starting Levophed gtt. MD Arnaldo notified and verbal order to hold off on starting drip unless needed d/t SBP less than 90 or MAP less than 65
--- NOTE | 2021-07-15 02:45 | PC.NURSE ---
PT ARRIVED TO FLOOR VIA STRETCHER FROM ED W/STAFF AT [id number]
[2021-07-15 03:52] LABS: Troponin I 0.09 ng/ml (0.00-0.034)
--- NOTE | 2021-07-15 06:45 | PC.NURSE ---
pt has been AxOx4 since coming to floor, has remained on bipap since arriving to floor with O2 sats 95-99%, bp low in ED, systolic BP since coming to floor 109-144, with a MAP greater than 65, walters draining at bedside
[2021-07-15 07:16] LABS: Basophils % 0.2 % (0.1-2.0); Eosinophils # 0.1 K/mm3 (0.0-0.4); Eosinophils % 0.4 % (0.1-12.0); Hematocrit 37.3 % (37.0-47.0); Hemoglobin 10.8 g/dL (12.2-16.2); Lymphocytes # 0.8 K/mm3 (0.7-4.5); Lymphocytes % 7.5 % (10-50); Mean Corpuscular Hemoglobin 24.4 pg (27.0-31.2); Mean Corpuscular Volume 83.9 fl (81-99); Mean Platelet Volume 9.4 fl (7.4-10.4); Monocytes # 0.1 K/mm3 (0.1-1.0); Neutrophils # 9.7 K/mm3 (1.8-7.8); Neutrophils % 90.8 % (37.0-80.0); Platelet Count 598 K/mm3 (142-424); Red Blood Count 4.45 M/mm3 (4.20-5.40); Red Cell Distribution Width 20.3 % (11.5-17.5); White Blood Count 10.6 K/mm3 (4.8-10.8)
[2021-07-15 07:24] LABS: Chloride 111 mmol/L (98-107); Potassium 3.9 mmoL/L (3.5-5.1); Sodium 142 mmol/L (136-145)
[2021-07-15 07:26] LABS: MANUAL DIFFERENTIAL MANUAL DIFFERENTIAL (MANUAL DIFF)
[2021-07-15 07:27] LABS: Anion Gap 11.9 mEq/L (5-15); Blood Urea Nitrogen 16 mg/dl (7-17); Calcium 7.9 mg/dl (8.4-10.2); Carbon Dioxide 23 mmol/L (22.0-30.0); Creatinine Clearance Estimated 48 mL/min (50-200); Estimated Glomerular Filt Rate 70 ml/min (>60); GFR (African American) 85 ML/MIN (>60); Glucose 145 mg/dl (74-100)
[2021-07-15 07:28] LABS: Magnesium 1.9 mg/dl (1.6-2.3)
--- NOTE | 2021-07-15 08:00 | XR_ITS ---
PROCEDURE INFORMATION: Exam: XR Chest Exam date and time: 07/15/2021 8:00 AM Age: 75 years old Clinical indication: Shortness of breath; Additional info: SOB TECHNIQUE: Imaging protocol: XR of the chest. Views: 1 view. COMPARISON: CR XR CHEST PORTABLE 07/14/2021 8:09 PM FINDINGS: Lungs: Mild interstitial prominence. Pleural spaces: Unremarkable. No pleural effusion. No pneumothorax. Heart/Mediastinum: Mild cardiac enlargement. Bones/joints: Unremarkable. IMPRESSION: Question mild CHF
--- NOTE | 2021-07-15 08:02 | HMH.HP ---
*Admission Date: 07/14/21 *Chief complaint: Altered mental status *History of present illness: 75-year-old female brought from home via EMS with altered mental status and initial suspicion for STEMI. On arrival to the emergency department patient was found to be obtunded with hypercapnic respiratory failure. She was briefly intubated with correction of her hypercapnia and was becoming more alert was extubated in the emergency department. Patient had been seen in the ER 48 hours prior. Review of that note shows patient was complaining of syncopal event at home. Patient had been discharged from the ER with a Holter monitor on. She reports the following day () she recalls getting sick at her stomach and vomiting at least once. She does not recall much about Saturday. She lives at home with her son. Patient has a history of prior stroke 10 years ago that caused right hemiparesis that has improved with time. After extubation in the emergency department patient was placed on BiPAP which she remains on until this morning and we have transitioned her to nasal cannula. She does not recall having any fevers or chills. She does not recall any significant cough and denies medical history of lung disease [facility] History I have reviewed the patient's past medical history: Yes Medical History: Reports:: Cerebrovascular Accident, Hyperlipidemia, Hypertension, Urinary Tract Infection Denies:: Cancer, Chronic Obstructive Pulmonary Disease (COPD), Diabetes Mellitus Type 1, Diabetes Mellitus Type 2, MRSA *Have you ever received a pneumonia vaccine?: No *Have you received a flu vaccine this season?: No Other Medical History: Reports: Anemia, Hypothyroidism Other Surgeries: Yes: Hysterectomy-Total Amputation: No - *Social History Smoking Status: Current every day smoker Tobacco Type: cigarettes # Packs/Day (cigarettes): 40 Alcohol Intake: never Substance Use Type: denies use *Occupational Status:: retired Housing: house Household Members: family *Travel in the last 8 weeks: None Family Hx:: Cancer Review of Systems - Constitutional Denies anorexia, Denies body ache(s), Denies chills, Denies lack of energy - Eyes Denies change in vision - ENT Denies difficulty swallowing - *Cardiovascular Denies chest pain, Denies chest pain at rest, Denies chest pain with activity, Denies shortness of breath - *Respiratory Denies chest congestion, Denies cough - *Gastrointestinal Denies belching - *Genitourinary Denies painful urination - *Musculoskeletal Denies joint pain - *Neurologic Reports confusion Meds Home Medications Medication Instructions Recorded Confirmed Type Pravastatin Sodium [Pravachol 40mg 40 mg PO HS 04/05/21 07/15/21 History Tablet] Lisinopril/Hydrochlorothiazide 1 tab PO DAILY 04/06/21 07/15/21 History [Lisinopril-Hctz 20-25 mg Tab] Furosemide [Furosemide 20mg Tab*] 20 mg PO DIRECTED 07/13/21 07/15/21 History Pantoprazole Sodium [Protonix 40mg 40 mg PO BID 07/13/21 07/15/21 History tablet] Potassium Chloride [Klor-con 20 20 meq PO DAILY 07/13/21 07/15/21 History mEq tablet] Sucralfate [Carafate 1gm Tab] 1 gm PO ACHS 07/13/21 07/15/21 History carvediloL [Carvedilol 12.5mg Tab] 12.5 mg PO BID 07/13/21 07/15/21 History Allergies Allergy/AdvReac Type Severity Reaction Status Date / Time Penicillins Allergy Mild Verified 04/05/21 15:12 Exam Vital signs and Labs for Last 24 Hours: Temp Pulse Resp BP Pulse Ox 97.6 F 99 H 24 157/86 H 98 07/15/21 04:00 07/15/21 07:00 07/15/21 07:00 07/15/21 07:00 07/15/21 07:00 Laboratory Results - last 24 hr 07/14/21 20:24: Specimen Source Right femoral, O2 % 100, ABG pH 6.91 L*, ABG pCO2 116.3 H, ABG pO2 304.6 H, ABG HCO3 22.6, ABG Total CO2 26.2, ABG O2 Saturation 100, ABG Base Excess -10.2 L, Shoaib Test Unacceptable 07/14/21 20:30: WBC 11.6 H, RBC 4.72, Hgb 11.6 L, Hct 40.3, MCV 85.4, MCH 24.7 L, MCHC 28.9 L, RDW 20.1
[2021-07-15 08:21] LABS: Lymphocytes % 1 % (10-50); Monocytes % 3 % (2-9); Neutrophils % 96 % (42-76); Total Cells Counted 100
[2021-07-15 08:22] LABS: Anisocytosis 1+; Hypochromasia 1+; Platelet Estimate Normal
--- NOTE | 2021-07-15 09:06 | P.CONPHA_ITS ---
[facility] Pharmacy VTE Monitoring - Patient Demographics Admission date: 07/14/21 Report Date: 07/15/21 Time: 09:06 Allergies/Adverse Reactions: Patient Allergies Penicillins Allergy (Mild, Verified 04/05/21 15:12) Height: 1.63 m Weight: 60.174 kg Patient Problems: Current Active Problems Acute exacerbation of chronic obstructive airways disease (Acute) Community acquired pneumonia (Acute) Septic shock (Acute) History of stroke (Acute) Hypertension (Acute) - VTE Risk Labs: VTE Related Lab Results Hgb 10.8 g/dL (12.2-16.2) L 07/15/21 06:45 Hct 37.3 % (37.0-47.0) 07/15/21 06:45 Plt Count 598 K/mm3 (142-424) H 07/15/21 06:45 BUN 16 mg/dl (7-17) 07/15/21 06:45 Creatinine 0.80 mg/dl (0.52-1.04) 07/15/21 06:45 Estimated Creat Clear 48 mL/min (50-200) 07/15/21 06:45 VTE Score: 5 VTE Risk Level: Low Risk - Prophylaxis VTE Prophylaxis Ordered?: Yes Types of VTE Prophylaxis: TEDS Knee High Location of Applied Device: Bilateral Lower Extremeties
--- NOTE | 2021-07-15 10:20 | HMH.PHAINT ---
MEDICATION RECONCILIATION COMPLETED ON PATIENT USING EXTERNAL FILL HISTORY FROM PHARMACY. -ELLI CALHOUN, JENNAD
--- NOTE | 2021-07-15 15:28 | PC.NURSE ---
Patient has been pleasant and cooperative this shift, has been up to chair for most of the day, was moved from bipap to nasal cannula this am and is currently on 4LNC and tolerating well, denies any pain, appetite has been fair, lung sounds reveal rhonchi t/o, denies any SOA, vss, will continue to monitor for changes.
[2021-07-16] VITALS (15 sets, daily range): BP systolic 100–156; BP diastolic 52–65; PULSE 73–130; RESP 14–24; TEMP 36.6–37; O2SAT 91–97; BMI 23.2
[2021-07-16 07:24] LABS: Basophils % 0.1 % (0.1-2.0); Eosinophils # 0.1 K/mm3 (0.0-0.4); Eosinophils % 1.3 % (0.1-12.0); Hematocrit 31.3 % (37.0-47.0); Hemoglobin 9.6 g/dL (12.2-16.2); Lymphocytes # 0.6 K/mm3 (0.7-4.5); Lymphocytes % 6.6 % (10-50); Mean Corpuscular HGB Conc 30.6 g/dL (31.8-35.4); Mean Corpuscular Hemoglobin 25.1 pg (27.0-31.2); Mean Corpuscular Volume 81.9 fl (81-99); Mean Platelet Volume 9.1 fl (7.4-10.4); Monocytes # 0.2 K/mm3 (0.1-1.0); Monocytes % 2.8 % (1.7-9.3); Neutrophils # 7.8 K/mm3 (1.8-7.8); Neutrophils % 89.3 % (37.0-80.0); Platelet Count 590 K/mm3 (142-424); Red Blood Count 3.82 M/mm3 (4.20-5.40); Red Cell Distribution Width 20.8 % (11.5-17.5); White Blood Count 8.7 K/mm3 (4.8-10.8)
[2021-07-16 07:28] LABS: MANUAL DIFFERENTIAL MANUAL DIFFERENTIAL (MANUAL DIFF)
--- NOTE | 2021-07-16 07:31 | ECG_ITS ---
APPROVED REPORT Exam: Resting ECG HR:98 bpm ECG Measurements Heart Rate 98 AXES QRSd 94 QRS -64 QT 412 T 219 QTc 525 Conclusion Atrial fibrillation Left axis deviation ST & Marked T wave abnormality, consider anterolateral ischemia Prolonged QT Abnormal ECG Electronically signed by : Walter Murillo MD 07/17/2021 21:22:07
[2021-07-16 07:33] LABS: Chloride 108 mmol/L (98-107); Potassium 3.8 mmoL/L (3.5-5.1); Sodium 139 mmol/L (136-145)
[2021-07-16 07:36] LABS: Anion Gap 10.8 mEq/L (5-15); Blood Urea Nitrogen 21 mg/dl (7-17); Carbon Dioxide 24 mmol/L (22.0-30.0); Creatinine Clearance Estimated 49 mL/min (50-200); Estimated Glomerular Filt Rate 61 ml/min (>60); GFR (African American) 74 ML/MIN (>60)
[2021-07-16 07:37] LABS: Calcium 8.4 mg/dl (8.4-10.2); Glucose 135 mg/dl (74-100)
--- NOTE | 2021-07-16 07:46 | P.PN_ITS ---
Internal Medicine - PN: Subj *Date: 07/16/21 *Time: 07:46 Interval history: Patient reports feeling better. She still notes some shortness of breath. Patient was able to sit on the side of the bed as well as sit in the chair yesterday. Her day was rather uneventful Exam Vital signs and Labs for Last 24 Hours: Temp Pulse Resp BP Pulse Ox 98.6 F 94 H 20 142/57 H 96 07/16/21 03:51 07/16/21 06:43 07/16/21 03:51 07/16/21 03:51 07/16/21 06:43 Laboratory Results - last 24 hr 07/15/21 06:45: Total Counted 100, Neutrophils % (Manual) 96 H, Lymphocytes % (Manual) 1 L, Monocytes % (Manual) 3, Platelet Estimate Normal, Hypochromasia 1+, Anisocytosis 1+ 07/16/21 07:05: WBC 8.7, RBC 3.82 L, Hgb 9.6 L, Hct 31.3 L, MCV 81.9, MCH 25.1 L , MCHC 30.6 L, RDW 20.8 H, Plt Count 590 H, MPV 9.1, Neut % (Auto) 89.3 H, Lymph % (Auto) 6.6 L, [place] % (Auto) 2.8, Eos % (Auto) 1.3, Baso % (Auto) 0.1, Neut # (Auto) 7.8, Lymph # (Auto) 0.6 L, [place] # (Auto) 0.2, Eos # (Auto) 0.1, Baso # (Auto) 0.0 07/16/21 07:05: Sodium 139, Potassium 3.8, Chloride 108 H, Carbon Dioxide 24, Anion Gap 10.8, BUN 21 H D, Creatinine 0.90, Estimated Creat Clear 49, Estimated GFR 61, Est GFR ( Amer) 74, Glucose 135 H, Calcium 8.4 I & O for Last 24 hours: Intake & Output 07/13/21 07/14/21 07/15/21 07/16/21 11:59 11:59 11:59 11:59 Intake Total 2540 / 2540 633 / 633 Output Total 1600 / 1600 Balance 2540 / 2540 -967 / -967 Weight 132 lb 10.561 oz 136 lb Narrative: Patient looks comfortable lying on her side. Nasal cannula is in place. Flow rate is 2 L/min. Lungs do have some scattered rhonchi as well as some wheezing in the right upper lobe. Heart has a regular rate and rhythm. Assessment and Plan (1) Community acquired pneumonia Status: Acute Qualifiers: Laterality: right Lung location: lower lobe of lung Qualified Code(s): J18.9 - Pneumonia, unspecified organism Category: Medical Code(s): J18.9 - Pneumonia, unspecified organism (2) Respiratory failure with hypercapnia Status: Resolved Qualifiers: Chronicity: acute on chronic Qualified Code(s): J96.22 - Acute and chronic respiratory failure with hypercapnia Category: Medical Code(s): J96.92 - Respiratory failure, unspecified with hypercapnia (3) Severe sepsis with acute organ dysfunction Status: Resolved Category: Medical Code(s): A41.9 - Sepsis, unspecified organism; R65.20 - Severe sepsis without septic shock (4) History of stroke Status: Acute Category: Medical Code(s): Z86.73 - Personal history of transient ischemic attack (TIA), and cerebral infarction without residual defi cits (5) Hypertension Status: Acute Category: Medical Code(s): I10 - Essential (primary) hypertension - Assessment and plan all Dx Assessment and Plan for all problems:: 1. Continue antibiotics to treat pneumonia 2. Continue steroids for suspected COPD exacerbation. Patient has no formal diagnosis but has smoked cigarettes for several years. 3. Patient be given a single dose of IV Lasix today as I believe she is slightly fluid overloaded and this may help her respiratory status
[2021-07-16 08:10] LABS: Anisocytosis 2+; Hypochromasia 2+; Lymphocytes % 4 % (10-50); Macrocytosis 2+; Monocytes % 4 % (2-9); Neutrophils % 92 % (42-76); Platelet Estimate Normal; Total Cells Counted 100
[2021-07-16 17:12] LABS: Troponin I 0.07 ng/ml (0.00-0.034)
--- NOTE | 2021-07-16 20:00 | PC.NURSE ---
This am pt had a rythm change to afib, notified Dr. Rubin, he made med changes. Pt has been on RA this afternoon and tolerating well. Pt did c/o of chest discomfort earlier in shift as well. EKG done and took to ed. Also, this RN notified Dr. Rubin and he ordered serial troponins and nitro as needed SL. Fenton removed per order. Chest discomfort was very minimal time and pt is resting now at this time. VSS. Report given on pt.
[2021-07-16 20:54] LABS: Troponin I 0.06 ng/ml (0.00-0.034)
[2021-07-16 23:40] LABS: Troponin I 0.07 ng/ml (0.00-0.034)
[2021-07-17] VITALS: BP 120/55; PULSE 70; PULSE 80; RESP 16; TEMP 36.6; O2SAT 95
[2021-07-17 04:00] VITALS: BP 142/67; PULSE 70; PULSE 76; RESP 20; TEMP 36.6; O2SAT 91
[2021-07-17 04:55] VITALS: BMI 22.6
[2021-07-17 06:15] LABS: Basophils % 0.2 % (0.1-2.0); Eosinophils % 0.2 % (0.1-12.0); Hematocrit 29.1 % (37.0-47.0); Hemoglobin 8.8 g/dL (12.2-16.2); Lymphocytes # 1.1 K/mm3 (0.7-4.5); Lymphocytes % 10.8 % (10-50); Mean Corpuscular HGB Conc 30.4 g/dL (31.8-35.4); Mean Corpuscular Hemoglobin 24.6 pg (27.0-31.2); Mean Corpuscular Volume 80.9 fl (81-99); Mean Platelet Volume 9.2 fl (7.4-10.4); Monocytes # 0.7 K/mm3 (0.1-1.0); Monocytes % 6.1 % (1.7-9.3); Neutrophils # 8.9 K/mm3 (1.8-7.8); Neutrophils % 82.9 % (37.0-80.0); Platelet Count 541 K/mm3 (142-424); Red Cell Distribution Width 20.9 % (11.5-17.5); White Blood Count 10.7 K/mm3 (4.8-10.8)
[2021-07-17 06:20] VITALS: PULSE 74; PULSE 86
--- NOTE | 2021-07-17 07:08 | HMH.DCSUM ---
General - General Admission date:: 07/14/21 Discharge date: 07/17/21 HPI HPI: 75-year-old female brought from home via EMS with altered mental status and initial suspicion for STEMI. On arrival to the emergency department patient was found to be obtunded with hypercapnic respiratory failure. She was briefly intubated with correction of her hypercapnia and was becoming more alert was extubated in the emergency department. Patient had been seen in the ER 48 hours prior. Review of that note shows patient was complaining of syncopal event at home. Patient had been discharged from the ER with a Holter monitor on. She reports the following day () she recalls getting sick at her stomach and vomiting at least once. She does not recall much about Saturday. She lives at home with her son. Patient has a history of prior stroke 10 years ago that caused right hemiparesis that has improved with time. After extubation in the emergency department patient was placed on BiPAP which she remains on until this morning and we have transitioned her to nasal cannula. She does not recall having any fevers or chills. She does not recall any significant cough and denies medical history of lung disease Hospital Course Hospital Course: Patient was admitted for suspected pneumonia on top of COPD exacerbation and started on steroids, Rocephin, azithromycin. Patient's white count trended down. Patient required BiPAP on initial presentation and within 48 hours was weaned to room air. Lung exam was significant for diffuse rales and rhonchi that improved daily during hospitalization. On the day of discharge patient was clear anteriorly with bibasilar rales and remained in the 90s on room air. She denied dyspnea. She was discharged home with azithromycin and prednisone. Patient had been seen in the emergency department on July 12 with syncopal event. She had been sent home with a Holter monitor. When patient returned Holter monitor was examined and there were no arrhythmias. However during hospitalization on the patient went into atrial fibrillation. Carvedilol was increased to 25 mg twice daily and patient received a single dose of digoxin. On the afternoon of the patient converted back to sinus rhythm. Xarelto 20 mg daily had been started. Patient has a manager [employer], Dr. Cristal Gonzales, and patient will follow up with Dr. Gonzales on the day of discharge as a she had a previously scheduled appointment. Objective Vital signs: Temp Pulse Resp BP Pulse Ox 97.9 F 86 20 142/67 H 91 L 07/17/21 04:00 07/17/21 06:20 07/17/21 04:00 07/17/21 04:00 07/17/21 04:00 no acute distress - *Routine Respiratory Exam Present: rales - *Routine Cardiovascular Exam Present: RRR - *Routine Abdominal Exam Present: soft, normoactive bowel sounds. Absent: tenderness Results Labs on day of discharge: Labs from last 24 hours 07/17/21 07/16/21 07/16/21 05:22 23:15 20:14 WBC 10.7 RBC 3.60 L Hgb 8.8 L Hct 29.1 L MCV 80.9 L MCH 24.6 L MCHC 30.4 L RDW 20.9 H Plt Count 541 H MPV 9.2 Neut % (Auto) 82.9 H Lymph % (Auto) 10.8 [place] % (Auto) 6.1 Eos % (Auto) 0.2 Baso % (Auto) 0.2 Neut # (Auto) 8.9 H Lymph # (Auto) 1.1 [place] # (Auto) 0.7 Eos # (Auto) 0.0 Baso # (Auto) 0.0 Total Counted Neutrophils % (Manual) Lymphocytes % (Manual) Monocytes % (Manual) Platelet Estimate Hypochromasia Anisocytosis Macrocytosis Sodium Potassium Chloride Carbon Dioxide Anion Gap BUN Creatinine Estimated Creat Clear Estimated GFR Est GFR ( Amer) Glucose Calcium Troponin I 0.07 H 0.06 H 07/16/21 07/16/21 07/16/21 16:27 07:05 07:05 WBC 8.7 RBC 3.82 L Hgb 9.6 L Hct 31.3 L MCV 81.9 MCH 25.1 L MCHC 30.6 L RDW 20.8 H Plt Count 590 H MPV 9.1 Neut % (Auto) 89.3 H Ly
[2021-07-17 07:10] LABS: Blood Urea Nitrogen 37 mg/dl (7-17); Calcium 8.3 mg/dl (8.4-10.2); Creatinine Clearance Estimated 48 mL/min (50-200); Estimated Glomerular Filt Rate 54 ml/min (>60); GFR (African American) 66 ML/MIN (>60); Glucose 100 mg/dl (74-100); Potassium 3.5 mmoL/L (3.5-5.1); Sodium 138 mmol/L (136-145)
[2021-07-17 07:47] LABS: Anion Gap 8.5 mEq/L (5-15); Carbon Dioxide 26 mmol/L (22.0-30.0); Chloride 107 mmol/L (98-107)
[2021-07-17 08:00] VITALS: BP 121/75; PULSE 70; RESP 17; TEMP 36.6; O2SAT 95; O2SAT 96
--- NOTE | 2021-07-17 16:06 | ECG_ITS ---
APPROVED REPORT Exam: Resting ECG HR:81 bpm ECG Measurements Heart Rate 81 AXES NV 182 P 72 QRSd 94 QRS -57 QT 440 T 202 QTc 511 Conclusion Normal sinus rhythm with sinus arrhythmia Left axis deviation ST & Marked T wave abnormality, consider anterolateral ischemia Prolonged QT Abnormal ECG Electronically signed by : Walter Murillo MD 07/17/2021 21:20:47
== END 2021-07-17 08:50 | disposition home or self-care (01) | DRG 208 ==
LOC: ER 23:13 → 2ND 23:52
PROVIDERS: Admitting Provider Family Medicine; Emergency Provider Emergency Medicine; PCP Nurse Practitioner Family; Visit Provider Family Medicine
DX: J18.9 Pneumonia, unspecified organism (principal); J96.22 Acute and chronic respiratory failure with hypercapnia; A41.9 Sepsis, unspecified organism; R65.21 Severe sepsis with septic shock; J44.1 Chronic obstructive pulmonary disease with (acute) exacerbation; J44.0 Chronic obstructive pulmonary disease with (acute) lower respiratory infection; I69.351 Hemiplegia and hemiparesis following cerebral infarction affecting right dominant side; E03.9 Hypothyroidism, unspecified; I10 Essential (primary) hypertension
CPT/HCPCS: 31500; 94002; 36415; 70450; 71045; 80048; 80053; 80076; 81001; 82803; 83605; 83735; 84145; 84484; 85007; 85025; 85651; 86140; 87040; 93005; 93225; 93226; 94640; 94660; 96365; 96366; 96375; 99283; 99285; C9803; J0456; J2405; U0003; U0005

== ENCOUNTER 2021-07-29 12:10 | Emergency (ER) | payer MEDICARE, SELFPAY ==
--- NOTE | 2021-07-29 12:07 | ECG_ITS ---
APPROVED REPORT Exam: Resting ECG HR:73 bpm ECG Measurements Heart Rate 73 AXES DC 196 P 60 QRSd 92 QRS -55 QT 436 T 83 QTc 480 Conclusion Normal sinus rhythm Left axis deviation Prolonged QT Abnormal ECG Electronically signed by : Walter Murillo MD 07/30/2021 08:47:09
[2021-07-29 12:14] VITALS: BP 106/45; PULSE 76; RESP 18; TEMP 36.7; O2SAT 97; BMI 23.6
--- NOTE | 2021-07-29 12:20 | XR_ITS ---
PROCEDURE INFORMATION: Exam: XR Chest Exam date and time: 07/29/2021 12:20 PM Age: 75 years old Clinical indication: Pain; Chest pressure; Additional info: Abd pain and chest pressure TECHNIQUE: Imaging protocol: XR of the chest. Views: 1 view. COMPARISON: CR XR CHEST PORTABLE 07/15/2021 8:07 AM FINDINGS: Lungs: COPD and interstitial prominence. Pleural spaces: No significant pleural effusion. Heart/Mediastinum: No cardiomegaly. Vasculature: Calcification of the thoracic aorta. Bones/joints: Osteopenia and degenerative change. IMPRESSION: COPD and interstitial prominence.
--- NOTE | 2021-07-29 12:22 | HMH.EDGENADL ---
ED Disposition Clinical Impression: Constipation Qualifiers: Constipation type: unspecified constipation type Qualified Code(s): K59.00 - Constipation, unspecified Abdominal pain Qualifiers: Abdominal location: generalized Qualified Code(s): R10.84 - Generalized abdominal pain Vomiting Qualifiers: Vomiting type: unspecified Vomiting Intractability: non-intractable Nausea presence: with nausea Qualified Code(s): R11.2 - Nausea with vomiting, unspecified Disposition: Home, Self-Care Condition on Discharge: Good Instructions: DI for Acute Abdominal Pain, DI for Constipation, DI for Vomiting -- Adult Additional Instructions: Magnesium citrate followed by MiraLAX as prescribed. Zofran as needed for nausea and vomiting. Follow-up with your primary care provider, call Saturday to make appointment. Additional instructions for ABDOMINAL PAIN: See your physician as soon as possible for further evaluation. Return immediately if worsening abdominal pain, vomiting, shortness of breath, fever, vomiting of blood or abdominal distention. Prescriptions: Magnesium Citrate [Magnesium Citrate 10oz Bottle] 1 bottle PO ONCE #1 ml [facility] polyethylene glycoL 3350 [Miralax 17gm Packet] 17 gm PO DAILY #5 packet Transmission Status: Pending to [facility] 493 Ondansetron [Zofran 4mg ODT] 4 mg PO TIDP PRN #10 tab PRN Reason: Nausea And Vomiting Transmission Status: Pending to [facility] Referrals: Provider,Referral, [Referring] - - Critical Care Critical Care Time: No Attestation: On , the high probability of a clinically significant, sudden or life threatening deterioration of the following system(s) required my full and direct attention, intervention and personal management. The time I documented below is in addition to time spent performing reported procedures but includes the following listed in this critical care notation. Medical Decision Making - Jaime Inquiry Pt receiving controlled substance: No Vital Signs: 07/29/21 12:14 Temperature 98.1 F Temperature Source Oral Pulse Rate [Radial] 76 Respiratory Rate 18 Blood Pressure [Right Arm] 106/45 L Blood Pressure Mean [Right Arm] 65 Blood Pressure Position [Right Arm] Sitting 02 Sat by Pulse Oximetry 97 Oxygen Delivery Method Room Air - Lab Data Lab Results 07/29/21 12:30: Urine Color Yellow, Urine Appearance Clear, Urine pH 6.0, Ur Specific [place] 1.015, Urine Protein Negative, Urine Glucose (UA) Negative, Urine Ketones Negative, Urine Blood 1+, Urine Nitrate Negative, Urine Bilirubin Negative, Urine Urobilinogen 0.2, Ur Leukocyte Esterase Negative, Urine RBC 5-10, Urine WBC 3-5, Ur Squamous Epith Cells 3-5, Urine Bacteria None 07/29/21 12:30: WBC 10.4, RBC 4.03 L, Hgb 9.9 L, Hct 33.3 L, MCV 82.5, MCH 24.5 L, MCHC 29.7 L, RDW 20.9 H, Plt Count 321, MPV 10.0, Neut % (Auto) 83.1 H, Lymph % (Auto) 10.1, [place] % (Auto) 4.5, Eos % (Auto) 1.4, Baso % (Auto) 0.9, Neut # (Auto) 8.6 H, Lymph # (Auto) 1.1, [place] # (Auto) 0.5, Eos # (Auto) 0.1, Baso # (Auto) 0.1 07/29/21 12:30: Sodium 137, Potassium 4.3, Chloride 104, Carbon Dioxide 27, Anion Gap 10.3, BUN 26 H, Creatinine 0.90, Estimated Creat Clear 45, Estimated GFR 61, Est GFR ( Amer) 74, Glucose 117 H, Calcium 8.6, Total Bilirubin 0.4, AST 33, ALT 15, Alkaline Phosphatase 78, Total Protein 6.3, Albumin 3.3 L, Globulin 3.0, Albumin/Globulin Ratio 1.1 07/29/21 12:30: Troponin I 0.05 H, Lipase 80 Result diagrams: 07/29/21 12:30 07/29/21 12:30 Orders (Tests/Meds): ED MEDICATIONS Generic Name Dose Route Start Last Admin Trade Name Freq PRN Reason Stop Dose Admin Sodium Chloride 10 ml 07/29/21 13:33 07/29/21 13:34 Sodium Chloride 0.9% 10ml Syr (Rad Only) IV 08/28/21 13:32 10 ml NEEDED PRN Administration Maintain IV Site Discontinued Medications Generic Name Dose Route Start Last Admin Trade Name Mike
[2021-07-29 12:40] LABS: Basophils # 0.1 K/mm3 (0-0.2); Basophils % 0.9 % (0.1-2.0); Lymphocytes # 1.1 K/mm3 (0.7-4.5); Lymphocytes % 10.1 % (10-50); Mean Corpuscular Volume 82.5 fl (81-99)
[2021-07-29 12:43] LABS: Eosinophils # 0.1 K/mm3 (0.0-0.4); Eosinophils % 1.4 % (0.1-12.0); Hematocrit 33.3 % (37.0-47.0); Hemoglobin 9.9 g/dL (12.2-16.2); Mean Corpuscular HGB Conc 29.7 g/dL (31.8-35.4); Mean Corpuscular Hemoglobin 24.5 pg (27.0-31.2); Monocytes # 0.5 K/mm3 (0.1-1.0); Monocytes % 4.5 % (1.7-9.3); Neutrophils # 8.6 K/mm3 (1.8-7.8); Neutrophils % 83.1 % (37.0-80.0); Platelet Count 321 K/mm3 (142-424); Red Blood Count 4.03 M/mm3 (4.20-5.40); Red Cell Distribution Width 20.9 % (11.5-17.5); White Blood Count 10.4 K/mm3 (4.8-10.8)
[2021-07-29 12:45] LABS: Chloride 104 mmol/L (98-107); Microscopic, Urine URINE MICROSCOPIC (MICROSCOPIC); Potassium 4.3 mmoL/L (3.5-5.1); Sodium 137 mmol/L (136-145)
[2021-07-29 12:47] LABS: Blood Urea Nitrogen 26 mg/dl (7-17); Creatinine Clearance Estimated 45 mL/min (50-200); Estimated Glomerular Filt Rate 61 ml/min (>60); GFR (African American) 74 ML/MIN (>60)
--- NOTE | 2021-07-29 12:47 | CT_ITS ---
PROCEDURE INFORMATION: Exam: CT Abdomen And Pelvis With Contrast Exam date and time: 07/29/2021 12:47 PM Age: 75 years old Clinical indication: Generalized; Patient HX: Abdominal pain, vomiting TECHNIQUE: Imaging protocol: Computed tomography of the abdomen and pelvis with contrast. Radiation optimization: All CT scans at this facility use at least one of these dose optimization techniques: automated exposure control; mA and/or kV adjustment per patient size (includes targeted exams where dose is matched to clinical indication); or iterative reconstruction. Contrast material: ISOVUE; Contrast volume: 75 ml; Contrast route: IV; COMPARISON: CT ABDOMEN PELVIS WO CON 01/29/2020 12:55 AM FINDINGS: Inferior thorax: Interstitial and mild airspace disease. Cardiomegaly and mitral annular calcification. Small hiatal hernia. Liver: No focal hepatic mass. Gallbladder and bile ducts: Unremarkable gallbladder. Pancreas: Borderline pancreatic ductal dilatation, without pancreatic mass. Spleen: No splenomegaly. Adrenal glands: Stable adrenal nodularity. Kidneys and ureters: Renal cysts, including a stable 4.7 cm right renal cyst. Renal vascular calcification. Stomach and bowel: Wall thickening in the nondistended stomach. Mild small bowel dilatation without a transition zone. Copious stool, in a pattern of constipation. Diverticula, without pericolonic inflammation. Appendix: Appendix not visualized. Intraperitoneal space: No free fluid. Vasculature: Vascular ectasia, prominent atherosclerotic plaque and calcification, and stable 2.4 cm infrarenal abdominal aortic aneurysm. Lymph nodes: Subcentimeter lymph nodes. Urinary bladder: Bladder dilatation. Reproductive: Status post hysterectomy. Bones/joints: Osteopenia. Degenerative change, disc bulging, and mild scoliosis. Soft tissues: Injection granuloma. IMPRESSION: 1. Wall thickening in the nondistended stomach. 2. Copious stool, in a pattern of constipation. 3. Additional findings as described above.
[2021-07-29 12:48] LABS: Alanine Aminotransferase 15 U/L (12-78); Albumin Level 3.3 g/dl (3.5-5.0); Albumin/Globulin Ratio 1.1 (1.1-1.8); Alkaline Phosphatase 78 U/L (38-126); Anion Gap 10.3 mEq/L (5-15); Aspartate Amino Transferase 33 U/L (14-36); Bilirubin,Total 0.4 mg/dl (0.2-1.3); Calcium 8.6 mg/dl (8.4-10.2); Carbon Dioxide 27 mmol/L (22.0-30.0); Glucose 117 mg/dl (74-100); Total Protein,Serum 6.3 g/dl (6.3-8.2)
[2021-07-29 12:52] LABS: Appearance,Urine CLEAR (Clear); Bilirubin,Urine Negative (Negative); Blood, Urine 1+ (Negative); Color,Urine YELLOW (Yellow); Glucose,Urine (UA) Negative (Negative); Ketones,Urine Negative (Negative); Leukocyte Esterase,Urine Negative (Negative); Nitrate,Urine Negative (Negative); Protein,Urine Negative (Negative); Specific Gravity, Urine 1.015 (1.005-1.030); Urobilinogen,Urine 0.2 EU/dl (0.2)
[2021-07-29 12:56] LABS: Lipase 80 U/L (23-300)
[2021-07-29 13:09] LABS: Troponin I 0.05 ng/ml (0.00-0.034)
[2021-07-29 14:00] VITALS: BP 132/79; PULSE 78; RESP 18; TEMP 36.8; O2SAT 98
== END 2021-07-29 14:00 | disposition home or self-care (01) ==
PROVIDERS: Emergency Provider Emergency Medicine; PCP Nurse Practitioner Family
DX: K59.00 Constipation, unspecified (principal); R10.84 Generalized abdominal pain; E78.5 Hyperlipidemia, unspecified; Z88.0 Allergy status to penicillin; Z79.899 Other long term (current) drug therapy
CPT/HCPCS: 71045; 74177; 80053; 81001; 83690; 84484; 85025; 93005; 99283; Q9967

== ENCOUNTER 2021-08-06 14:56 | Emergency (ER) | payer MEDICARE, SELFPAY ==
[2021-08-06 14:56] VITALS: BP 100/51; PULSE 78; RESP 12; TEMP 36.8; O2SAT 97; BMI 33.3
--- NOTE | 2021-08-06 15:10 | HMH.EDGENADL ---
ED Disposition Clinical Impression: Syncope Qualifiers: Syncope type: unspecified Qualified Code(s): R55 - Syncope and collapse Disposition: Left Against Medical Advice Condition on Discharge: Serious Instructions: DI for Syncope in Adults (Fainting), DI for Syncope in Children (Fainting) Additional Instructions: Been diagnosed with 70% carotid artery stenosis, and syncope, this is something that you would require an operation for. Please follow-up with your primary care physician. [phone] is the number at to call if you change your mind about having surgery on your carotid arteries, say that you were in the ER and have 70% carotid stenosis and they can schedule you an appt. please make an appointment as well to talk to your primary care doctor, about things that we discussed such as CODE STATUS, DNR, etc. if you change your mind about receiving medical therapy for your syncope or carotid artery stenosis please return to the emergency department here or at [facility] for further evaluation. - Critical Care Critical Care Time: No Attestation: On , the high probability of a clinically significant, sudden or life threatening deterioration of the following system(s) required my full and direct attention, intervention and personal management. The time I documented below is in addition to time spent performing reported procedures but includes the following listed in this critical care notation. Medical Decision Making - Medical Records Medical records reviewed: Yes: I reviewed the patient's medical records. - Jaime Inquiry Pt receiving controlled substance: No Vital Signs: 08/06/21 14:56 08/06/21 15:30 Temperature 98.2 F Temperature Source Oral Pulse Rate 87 Pulse Rate [Left Radial] 78 Respiratory Rate 12 17 Blood Pressure 115/87 Blood Pressure [Right Arm] 100/51 L Blood Pressure Mean 93 Blood Pressure Mean [Right Arm] 67 Blood Pressure Source [Right Arm] Automatic Cuff Blood Pressure Position [Right Arm] Sitting 02 Sat by Pulse Oximetry 97 98 Oxygen Delivery Method Room Air - Lab Data Lab Results 08/06/21 16:17: WBC 5.8, RBC 4.07 L, Hgb 10.0 L, Hct 33.5 L, MCV 82.3, MCH 24.5 L, MCHC 29.8 L, RDW 21.3 H, Plt Count 340, MPV 9.4, Neut % (Auto) 72.9, Lymph % (Auto) 18.2, [place] % (Auto) 5.6, Eos % (Auto) 2.0, Baso % (Auto) 1.3, Neut # (Auto) 4.2, Lymph # (Auto) 1.1, [place] # (Auto) 0.3, Eos # (Auto) 0.1, Baso # (Auto) 0.1 08/06/21 16:17: Sodium 140, Potassium 4.1, Chloride 107, Carbon Dioxide 27, Anion Gap 10.1, BUN 22 H, Creatinine 1.20 H, Estimated Creat Clear 59, Estimated GFR 44 L, Est GFR ( Amer) 53 L, Glucose 112 H, Calcium 9.0, Total Bilirubin 0.3, AST 25, ALT 11 L, Alkaline Phosphatase 91, Total Protein 6.8, Albumin 3.5, Globulin 3.3 H, Albumin/Globulin Ratio 1.1 Result diagrams: 08/06/21 16:17 08/06/21 16:17 Orders (Tests/Meds): ED MEDICATIONS Discontinued Medications Generic Name Dose Route Start Last Admin Trade Name Freq PRN Reason Stop Dose Admin Iopamidol 100 ml 08/06/21 16:45 08/06/21 16:48 Iopamidol-370 (76%); 50ml Vial IV 08/06/21 16:46 100 ml ONCE ONE Administration Ondansetron HCl 4 mg 08/06/21 18:03 Ondansetron 4mg Odt SL 08/06/21 18:04 ONCE ONE Sodium Chloride 50 ml 08/06/21 16:45 08/06/21 16:48 0.9 % Sodium Chloride 50 Ml Vial IV 08/06/21 16:46 50 ml ONCE ONE Administration Sodium Chloride 10 ml 08/06/21 16:45 08/06/21 16:48 Sodium Chloride 0.9% 10ml Syr (Rad Only) IV 08/06/21 16:46 10 ml ONCE ONE Administration ORDERS Category Date Time Status Urinalysis and Microscopic Stat Lab 08/06/21 15:14 Ordered Medical Decision Narrative: Patient is a 76-year-old female presents the ED today after a syncopal episode versus a seizure at home, we are attempting to contact family for more ancillary history. Patient is otherwise well-appearing on initial evaluation in no acute distress, vital signs ar
--- NOTE | 2021-08-06 15:14 | XR_ITS ---
PROCEDURE INFORMATION: Exam: XR Chest Exam date and time: 08/06/2021 3:14 PM Age: 76 years old Clinical indication: Screening exam; Other screening; Additional info: Infectious workup/ patient passed out today TECHNIQUE: Imaging protocol: XR of the chest. Views: 1 view. COMPARISON: CR XR CHEST PORTABLE 07/29/2021 12:59 PM FINDINGS: Lungs: Bilateral hyperinflation is present. Atelectatic changes noted within both lung bases. Pleural spaces: There is no evidence of pneumothorax. There are no pleural effusions present. Heart/Mediastinum: The heart demonstrates mild diffuse enlargement. Vasculature: The vasculature demonstrates diffuse mild atherosclerotic calcification. Bones/joints: The thoracic spine demonstrates mild degenerative changes at multiple levels. IMPRESSION: 1. Bilateral hyperinflation is present. 2. Atelectatic changes noted within both lung bases. 3. The heart demonstrates mild diffuse enlargement. 4. The thoracic spine demonstrates mild degenerative changes at multiple levels.
--- NOTE | 2021-08-06 15:14 | CT_ITS ---
PROCEDURE INFORMATION: Exam: CT Head Without Contrast Exam date and time: 08/06/2021 3:14 PM Age: 76 years old Clinical indication: Other: Syncopal episode; Additional info: Fall, on blood thinners TECHNIQUE: Imaging protocol: Computed tomography of the head without contrast. Radiation optimization: All CT scans at this facility use at least one of these dose optimization techniques: automated exposure control; mA and/or kV adjustment per patient size (includes targeted exams where dose is matched to clinical indication); or iterative reconstruction. COMPARISON: CT HEAD/BRAIN WO CON 07/13/2021 2:01 AM FINDINGS: Brain: Age-related atrophy and chronic white matter ischemic changes, with no evidence of an acute intracranial abnormality. No hemorrhage, mass effect or midline shift. Old bilateral lacunar infarctions noted. Cerebral ventricles: No ventriculomegaly. Paranasal sinuses: Visualized sinuses are unremarkable. No fluid levels. Mastoid air cells: Visualized mastoid air cells are well aerated. Vasculature: Small calcification again noted adjacent to the left middle cerebral artery, unchanged from the prior studies. The vasculature demonstrates diffuse mild atherosclerotic calcification. Bones/joints: No acute fracture. Soft tissues: No acute changes IMPRESSION: 1. Age-related atrophy and chronic white matter ischemic changes, with no evidence of an acute intracranial abnormality. 2. No hemorrhage, mass effect or midline shift.
--- NOTE | 2021-08-06 15:14 | CT_ITS ---
PROCEDURE INFORMATION: Exam: CT Angiography Neck With Contrast Exam date and time: 08/06/2021 3:14 PM Age: 76 years old Clinical indication: Other: Syncopal episode; Additional info: Right carotid stenosis TECHNIQUE: Imaging protocol: Computed tomography angiography of the neck with contrast. 3D rendering (Not supervised by radiologist): MIP and/or 3D reconstructed images were created by the technologist. Radiation optimization: All CT scans at this facility use at least one of these dose optimization techniques: automated exposure control; mA and/or kV adjustment per patient size (includes targeted exams where dose is matched to clinical indication); or iterative reconstruction. Contrast material: ISOVUE 370; Contrast volume: 100 ml; Contrast route: INTRAVENOUS (IV); COMPARISON: US CV/CAROTID DUPLEX 06/06/2015 2:08 PM FINDINGS: Right common carotid artery: No stenosis. No dissection or occlusion. Right internal carotid artery: There is heavy atherosclerotic disease involving proximal right ICA with severe narrowing (1-1.7/6.8 equals 75%). Right external carotid artery: No occlusion or stenosis of the origin. Left common carotid artery: No stenosis. No dissection or occlusion. Left internal carotid artery: There is heavy atherosclerotic disease involving the proximal left ICA with a borderline moderate to severe stenosis (1-1.7/6.0 equals 71%). Left external carotid artery: No occlusion or stenosis of the origin. Right vertebral artery: No stenosis. No dissection or occlusion. Left vertebral artery: No stenosis. No dissection or occlusion. Aorta: There is atherosclerotic disease of the aortic arch without aneurysmal dilatation. Dental: The mandible and maxilla are edentulous. Lymph nodes: There are partially calcified left hilar lymph nodes. There are nonenlarged mediastinal lymph nodes. Soft tissues: Normal. No significant soft tissue swelling. Bones/joints: There are degenerative changes throughout the cervical spine. IMPRESSION: Severe stenosis of the proximal right and left ICA. REFERENCES: NASCET CRITERIA. The degree of internal carotid artery stenosis is based on NASCET criteria. Normal is no stenosis. Mild is less than 50% stenosis. Moderate is 50-69% stenosis. Severe is 70% to 99% stenosis. Total occlusion is no detectable patent lumen.
--- NOTE | 2021-08-06 15:14 | CT_ITS ---
PROCEDURE INFORMATION: Exam: CT Angiography Head With Contrast, Arteriography Exam date and time: 08/06/2021 3:14 PM Age: 76 years old Clinical indication: Other: Syncopal episode; Additional info: Right carotid stenosis TECHNIQUE: Imaging protocol: Computed tomography angiography of the head with contrast. Exam focused on the arteries. 3D rendering (Not supervised by radiologist): MIP and/or 3D reconstructed images were created by the technologist. Radiation optimization: All CT scans at this facility use at least one of these dose optimization techniques: automated exposure control; mA and/or kV adjustment per patient size (includes targeted exams where dose is matched to clinical indication); or iterative reconstruction. Contrast material: ISOVUE 370; Contrast volume: 100 ml; Contrast route: INTRAVENOUS (IV); COMPARISON: CT HEAD/BRAIN WO CON 08/06/2021 4:22 PM FINDINGS: ANTERIOR CIRCULATION: Right internal carotid artery: There is atherosclerotic disease involving the right cavernous ICA without narrowing. Right middle cerebral artery: No occlusion or significant stenosis. No aneurysm. Right anterior cerebral artery: No occlusion or significant stenosis. No aneurysm. Left internal carotid artery: There is atherosclerotic disease involving the left cavernous ICA without narrowing. Left middle cerebral artery: No occlusion or significant stenosis. No aneurysm. Left anterior cerebral artery: No occlusion or significant stenosis. No aneurysm. POSTERIOR CIRCULATION: Right vertebral artery: No occlusion or significant stenosis. No aneurysm. Left vertebral artery: No occlusion or significant stenosis. No aneurysm. Basilar artery: No occlusion or significant stenosis. No aneurysm. Right posterior cerebral artery: There is a origin of the right [employer]CH[employer]. Left posterior cerebral artery: There is a origin of the left [employer] TE[employer] WRITER. IMPRESSION: No large vessel stenosis or occlusion.
[2021-08-06 15:30] VITALS: BP 115/87; PULSE 87; RESP 17; O2SAT 98
[2021-08-06 16:27] LABS: Basophils # 0.1 K/mm3 (0-0.2); Basophils % 1.3 % (0.1-2.0); Eosinophils # 0.1 K/mm3 (0.0-0.4); Hematocrit 33.5 % (37.0-47.0); Lymphocytes # 1.1 K/mm3 (0.7-4.5); Lymphocytes % 18.2 % (10-50); Mean Corpuscular HGB Conc 29.8 g/dL (31.8-35.4); Mean Corpuscular Hemoglobin 24.5 pg (27.0-31.2); Mean Corpuscular Volume 82.3 fl (81-99); Mean Platelet Volume 9.4 fl (7.4-10.4); Monocytes # 0.3 K/mm3 (0.1-1.0); Monocytes % 5.6 % (1.7-9.3); Neutrophils # 4.2 K/mm3 (1.8-7.8); Neutrophils % 72.9 % (37.0-80.0); Platelet Count 340 K/mm3 (142-424); Red Blood Count 4.07 M/mm3 (4.20-5.40); Red Cell Distribution Width 21.3 % (11.5-17.5); White Blood Count 5.8 K/mm3 (4.8-10.8)
[2021-08-06 16:42] LABS: Alanine Aminotransferase 11 U/L (12-78); Albumin Level 3.5 g/dl (3.5-5.0); Albumin/Globulin Ratio 1.1 (1.1-1.8); Alkaline Phosphatase 91 U/L (38-126); Anion Gap 10.1 mEq/L (5-15); Aspartate Amino Transferase 25 U/L (14-36); Bilirubin,Total 0.3 mg/dl (0.2-1.3); Blood Urea Nitrogen 22 mg/dl (7-17); Carbon Dioxide 27 mmol/L (22.0-30.0); Chloride 107 mmol/L (98-107); Creatinine Clearance Estimated 59 mL/min (50-200); Estimated Glomerular Filt Rate 44 ml/min (>60); GFR (African American) 53 ML/MIN (>60); Globulin 3.3 g/dL (1.3-3.2); Glucose 112 mg/dl (74-100); Potassium 4.1 mmoL/L (3.5-5.1); Sodium 140 mmol/L (136-145); Total Protein,Serum 6.8 g/dl (6.3-8.2)
--- NOTE | 2021-08-06 17:09 | PC.NURSE ---
speaking with KIM
[2021-08-06 17:15] VITALS: PULSE 88; RESP 19; O2SAT 93
[2021-08-06 18:52] VITALS: BP 115/87; PULSE 88; RESP 19; TEMP 36.8; O2SAT 98
== END 2021-08-06 18:56 | disposition left against medical advice (07) ==
PROVIDERS: Emergency Provider Student in an Organized Health Care Education/Training Program; PCP Nurse Practitioner Family
DX: R55 Syncope and collapse (principal); I65.23 Occlusion and stenosis of bilateral carotid arteries; I10 Essential (primary) hypertension; E78.5 Hyperlipidemia, unspecified; F17.210 Nicotine dependence, cigarettes, uncomplicated; Z88.0 Allergy status to penicillin
CPT/HCPCS: 70450; 70496; 70498; 71045; 80053; 85025; 96374; 99282; Q9967

== ENCOUNTER → 2022-06-21 10:51 | Outpatient (CLI) | payer OTHER, MEDICAID, SELFPAY ==
[2022-06-21 14:21] LABS: Anion Gap 16.1 mEq/L (5-15); Blood Urea Nitrogen 16 mg/dl (7-17); Calcium 8.8 mg/dl (8.4-10.2); Carbon Dioxide 21 mmol/L (22.0-30.0); Chloride 109 mmol/L (98-107); Estimated Glomerular Filt Rate 82 ml/min (>60); GFR (African American) 99 ML/MIN (>60); Glucose 95 mg/dl (74-100); Potassium 4.1 mmoL/L (3.5-5.1); Sodium 142 mmol/L (136-145)
== END ==
PROVIDERS: PCP Family Medicine Hospice and Palliative Medicine; Visit Provider Family Medicine Hospice and Palliative Medicine
DX: K63.9 Disease of intestine, unspecified
CPT/HCPCS: 80048

== ENCOUNTER → 2022-06-22 09:52 | Outpatient (CLI) | payer OTHER, MEDICAID, SELFPAY ==
--- NOTE | 2022-06-22 10:07 | CT_ITS ---
FINAL REPORT TECHNIQUE: Axial CT images of the abdomen were obtained with IV contrast only. Coronal reformatted images were also obtained. This study was performed with techniques to keep radiation doses as low as reasonably achievable (ALARA). Individualized dose reduction techniques using automated exposure control or adjustment of mA and/or kV according to the patient''s size were employed. CLINICAL HISTORY: GI BLEED COMPARISON: July 29, 2021 FINDINGS: There is mild bibasilar atelectasis. Cardiomegaly is noted. The liver has an unremarkable appearance, without evidence of mass. The gallbladder appears normal without evidence of gallstones. There is no evidence of biliary ductal dilatation. The pancreas appears normal. There is mild adrenal gland enlargement favoring hyperplasia or adenomas. The spleen size is within normal limits. There is a 1.9 cm contrast enhancing mass in the lateral right kidney consistent with neoplasm and likely renal cell carcinoma. There are other renal masses consistent with bilateral simple cysts measuring up to 4.1 cm on the right. There is diffuse vascular calcification. There is no evidence of adenopathy. No abnormal fluid collection is seen. There is wall thickening of the ascending colon and hepatic flexure of uncertain significance. IMPRESSION: Stable lateral right renal mass consistent with neoplasm. Likely renal cell carcinoma. Bilateral renal cysts. Wall thickening of the ascending colon and hepatic flexure of uncertain significance. Findings may be due to colitis. Neoplasm is felt less likely. Reviewed, Interpreted and Dictated by Alfonso Ace III, MD Transcribed by Imtiaz Morris Authenticated and [facility]
== END ==
PROVIDERS: PCP Nurse Practitioner Family; Visit Provider Family Medicine Hospice and Palliative Medicine
DX: Z87.19 Personal history of other diseases of the digestive system (principal)
CPT/HCPCS: 74160; Q9967

== ENCOUNTER 2022-07-19 20:01 | Observation (INO) | payer MEDICARE, MEDICAID, SELFPAY ==
[2022-07-19] VITALS (8 sets, daily range): BP systolic 119–164; BP diastolic 72–97; PULSE 93–109; RESP 16; TEMP 37; O2SAT 90–95; BMI 19.8
--- NOTE | 2022-07-19 21:19 | HMH.EDNVD ---
Discharge Plan Disposition Patient Disposition: Admitted As Inpatient Discharge ED Provider: Renato Mcintosh Nausea/Vomiting/Diarrhea HPI General Chief complaint: Nausea/Vomiting/Diarrhea Stated complaint: Nasuea, Vomiting, Diarrhea Time Seen by Provider: 07/19/22 21:19 Mode of Arrival: EMS Source of Information: Patient, EMS and Medical Record Limitations: No Limitations Description of Symptoms (Recalled from ER Triage Doc. by RN): sister in law called 911 hailey. the pt states she was so sick she couldnt hold her head up. pt states her stomach hurts and she has diarrhea since last nightand vomiting today. pt also states to have been told she has kidney cancer last saturday History of Present Illness HPI Narrative: pt with reported abd pain with vomiting and diarrhea and weakness which has been over the last few days - pt herself c/o of some abd pain but was not specific and uncertain as to any cancer - no family present MD complaint: nausea, vomiting and diarrhea Onset (ago): day(s) Associated Abdominal Pain: Yes Location of pain: diffuse Severity: moderate Quality: cramping Associated symptoms: loss of appetite and weakness Related Data Home Medications Medication Instructions Recorded Confirmed pravastatin 40 mg tablet 40 mg PO HS Cholesterol 04/05/21 08/01/21 lisinopril 20 1 tab PO DAILY Hypertension 04/06/21 08/01/21 mg-hydrochlorothiazide 25 mg tablet carvedilol 12.5 mg tablet 12.5 mg PO BID Hypertension 07/13/21 08/01/21 furosemide 20 mg tablet 20 mg PO MOWEFR Fluid 07/13/21 08/01/21 pantoprazole 40 mg tablet,delayed 40 mg PO BID GERD 07/13/21 08/01/21 release potassium chloride 20 mEq 20 meq PO DAILY Supplement 07/13/21 08/01/21 tablet,extended release(part/cryst) sucralfate 1 gram tablet 1 gm PO ACHS STOMACH 07/13/21 08/01/21 albuterol sulfate 90 mcg/actuation 1 puff inhalation ONCE PRN 08/01/21 08/01/21 aerosol inhaler Previous Rx's Medication Instructions Recorded azithromycin 250 mg tablet 250 mg PO DAILY #3 tabs 07/17/21 prednisone 20 mg tablet 20 mg PO DAILY #5 tabs 07/17/21 rivaroxaban 20 mg tablet 20 mg PO DAILY #30 tabs 07/17/21 magnesium citrate 1 bottle PO ONCE #1 mL 07/29/21 ondansetron 4 mg disintegrating 4 mg PO TIDP PRN Nausea And 07/29/21 tablet Vomiting #10 tabs polyethylene glycol 3350 17 gram 17 gm PO DAILY #5 packets 07/29/21 oral powder packet ondansetron 4 mg disintegrating 4 mg PO Q6 PRN Nausea #9 tabs 08/06/21 tablet Allergies Allergy/AdvReac Type Severity Reaction Status Date / Time Penicillins Allergy Mild Verified 08/01/21 11:49 PFSH PFSH Social History Smoking Status: Current every day smoker tobacco type: cigarettes packs per day: 40 alcohol intake: never substance use type: denies use current occupational status: retired Travel in the last 8 weeks: Inside the [place] household members: family housing: house caffeine: Yes ROS Obtained: Yes All systems reviewed & no additional complaints except as documented Constitutional Constitutional: Denies fever(s) and Reports weakness Cardiovascular Cardiovascular: Denies dyspnea Respiratory Respiratory: Denies dyspnea Gastrointestinal Gastrointestingal: Reports as per HPI and abdominal pain Neurologic Neurologic: Reports weakness Physical Exam General General appearance: alert Head Head exam: normocephalic Eye Eye exam: Present PERRL and EOMI; Absent scleral icterus ENT ENT exam: Present mucous membranes dry Neck Neck exam: Present trachea midline Respiratory Respiratory exam: Present other (dec bs bilat); Absent respiratory distress Cardiovascular Cardiovascular exam: Present regular rate, systolic murmur and +S4 Abdominal Exam Abdominal exam: Present soft and tenderness; Absent guarding or rebound Abdominal tenderness: Present diffuse and moderate Extremities Exam Extremities exam: Present other (pulse present bilat); Absent edema Neurological Exam Neurological exam
--- NOTE | 2022-07-19 21:23 | CT_ITS ---
PROCEDURE INFORMATION: Exam: CT Abdomen And Pelvis With Contrast Exam date and time: 07/19/2022 10:28 PM Age: 76 years old Clinical indication: Abdominal pain; Additional info: Abd pain TECHNIQUE: Imaging protocol: Computed tomography of the abdomen and pelvis with contrast. Radiation optimization: All CT scans at this facility use at least one of these dose optimization techniques: automated exposure control; mA and/or kV adjustment per patient size (includes targeted exams where dose is matched to clinical indication); or iterative reconstruction. Contrast material: ISOVUE; Contrast volume: 75 ml; Contrast route: IV; COMPARISON: CT ABDOMEN W CON 06/22/2022 10:30 AM FINDINGS: Pleural spaces: No pleural fluid. Heart: Mild cardiomegaly. Prominent mitral annulus calcification. Liver: Normal configuration. Homogeneous parenchyma. Gallbladder and bile ducts: No regional inflammation. No calcified stones. No ductal dilation. Pancreas: Normal. No ductal dilation. Spleen: Normal. No splenomegaly. Adrenal glands: Normal configuration. Kidneys and ureters: Kidneys enhance symmetrically and demonstrate no evidence of mass, calculus, obstruction, or inflammation. There is a large simple cyst in the right kidney. Stomach and bowel: There is severe diffuse colonic mural thickening with mucosal enhancement and pericolic edema. Findings are most severe in the transverse colon and splenic flexure. Normal appearance of the stomach and small bowel. No bowel wall pneumatosis. Appendix: Normal appendix is confirmed. Intraperitoneal space: Low volume free fluid in the peritoneal cavity. No free air. Vasculature: Heavily calcified abdominal aorta demonstrates bilobed ectasia with a superior component measuring 2.3 cm maximal diameter and the inferior component measuring 2.4 cm maximal diameter. High-grade stenosis suspected at the origin of the left common iliac artery. Heavily diseased bilateral external iliac arteries. No portal venous gas. Lymph nodes: No enlarged lymph nodes. Urinary bladder: Catheterized urinary bladder. Reproductive: Features of prior hysterectomy noted. No evidence of vaginal cuff or adnexal mass. Bones/joints: Lumbar degenerative disc and facet disease without spinal canal stenosis. Soft tissues: Unremarkable. IMPRESSION: 1. Exam demonstrates features of severe colitis with trace peritoneal free fluid. There is severe arterial disease, so the possibility of ischemic colitis should be considered, but the colon mucosa still enhances normally. 2. Severe arterial disease. COMMENTS: Consistent with the [employer]'s Incidental Findings Committee white paper (J Am Chanelle Radiol 2018): Any incidental renal lesion less than 1 cm or classified as too small to characterize, or any incidental cystic renal lesion characterized as simple-appearing, is likely benign. No follow-up imaging is recommended for these lesions per consensus recommendations based on imaging criteria.
--- NOTE | 2022-07-19 21:23 | XR_ITS ---
PROCEDURE INFORMATION: Exam: XR Chest Exam date and time: 07/19/2022 10:59 PM Age: 76 years old Clinical indication: Shortness of breath; Additional info: SOB TECHNIQUE: Imaging protocol: Radiologic exam of the chest. Views: 1 view. COMPARISON: CR XR CHEST PORTABLE 08/06/2021 3:50 PM FINDINGS: Lungs: Fine reticular opacities throughout both lungs are stable from prior. Pleural spaces: Unremarkable. No pleural effusion. No pneumothorax. Heart/Mediastinum: Unremarkable. No cardiomegaly. Vasculature: Calcified aortic arch without dilation. Bones/joints: Subjective bony demineralization. IMPRESSION: Stable pulmonary reticular opacities. No acute cardiopulmonary abnormality.
[2022-07-19 21:33] LABS: Basophils # 0.1 K/mm3 (0-0.2); Basophils % 0.6 % (0.1-2.0); Eosinophils % 0.2 % (0.1-12.0); Hematocrit 49.5 % (37.0-47.0); Hemoglobin 15.9 g/dL (12.2-16.2); Lymphocytes # 1.3 K/mm3 (0.7-4.5); Lymphocytes % 7.9 % (10-50); Mean Corpuscular HGB Conc 32.2 g/dL (31.8-35.4); Mean Corpuscular Volume 93.1 fl (81-99); Mean Platelet Volume 11.8 fl (7.4-10.4); Monocytes # 0.6 K/mm3 (0.1-1.0); Monocytes % 3.7 % (1.7-9.3); Neutrophils # 14.1 K/mm3 (1.8-7.8); Neutrophils % 87.7 % (37.0-80.0); Platelet Count 397 K/mm3 (142-424); Red Blood Count 5.31 M/mm3 (4.20-5.40); Red Cell Distribution Width 13.8 % (11.5-17.5)
[2022-07-19 21:36] LABS: Chloride 105 mmol/L (98-107); MANUAL DIFFERENTIAL MANUAL DIFFERENTIAL (MANUAL DIFF); Potassium 3.9 mmoL/L (3.5-5.1); Sodium 141 mmol/L (136-145)
[2022-07-19 21:39] LABS: Alanine Aminotransferase 16 U/L (12-78); Albumin Level 4.1 g/dl (3.5-5.0); Albumin/Globulin Ratio 1.1 (1.1-1.8); Alkaline Phosphatase 131 U/L (38-126); Amylase 101 U/L (30-110); Anion Gap 15.9 mEq/L (5-15); Aspartate Amino Transferase 30 U/L (14-36); Bilirubin,Total 0.3 mg/dl (0.2-1.3); Blood Urea Nitrogen 21 mg/dl (7-17); Calcium 8.9 mg/dl (8.4-10.2); Carbon Dioxide 24 mmol/L (22.0-30.0); Creatinine Clearance Estimated 37 mL/min (50-200); Estimated Glomerular Filt Rate 70 ml/min (>60); GFR (African American) 85 ML/MIN (>60); Globulin 3.9 g/dL (1.3-3.2); Glucose 117 mg/dl (74-100); Lipase 32 U/L (23-300)
[2022-07-19 21:49] LABS: Microscopic, Urine URINE MICROSCOPIC (MICROSCOPIC)
[2022-07-19 21:50] LABS: Appearance,Urine SL CLOUDY (Clear); Bilirubin,Urine Negative (Negative); Blood, Urine 1+ (Negative); Color,Urine YELLOW (Yellow); Glucose,Urine (UA) Negative (Negative); Ketones,Urine Negative (Negative); Leukocyte Esterase,Urine Negative (Negative); Nitrate,Urine POSITIVE (Negative); PH,Urine 5.5 (5.0-8.5); Protein,Urine TRACE (Negative); Specific Gravity, Urine >= 1.030 (1.005-1.030); Urobilinogen,Urine 0.2 EU/dl (0.2)
[2022-07-19 21:52] LABS: Troponin I < 0.01 ng/ml (0.00-0.034)
--- NOTE | 2022-07-19 21:52 | ECG_ITS ---
APPROVED REPORT Exam: Resting ECG HR:101 bpm ECG Measurements Heart Rate 101 AXES NM 179 P 76 QRSd 98 QRS -69 QT 360 T 63 QTc 418 Conclusion SINUS TACHYCARDIA WITH OCCASIONAL VENTRICULAR PREMATURE COMPLEXES LEFT AXIS DEVIATION [QRS AXIS < -30] PATTERN CONSISTENT WITH PULMONARY DISEASE ABNORMAL ECG UNCONFIRMED REPORT Electronically signed by : Walter Murillo MD 07/20/2022 15:25:09
[2022-07-19 21:58] LABS: Bacteria,Urine 4+ /lpf; RBC,Urine Occasional #/hpf (0-3); Squamous Epithelial Cell,Urine Occasional #/hpf (0-5); WBC,Urine Occasional #/hpf (0-3)
[2022-07-19 22:50] LABS: Lymphocytes % 9 % (10-50); Monocytes % 3 % (2-9); Neutrophils % 88 % (42-76); Total Cells Counted 100
[2022-07-19 22:51] LABS: Platelet Estimate Normal; Stomatocytes 1+
[2022-07-19 23:47] LABS: Coronavirus 19, PCR Not Detected (NotDetected); Influenza A, PCR Not Detected (NotDetected); Influenza B, PCR Not Detected (NotDetected)
[2022-07-20] VITALS (11 sets, daily range): BP systolic 116–169; BP diastolic 64–91; PULSE 70–104; RESP 16–20; TEMP 36.6–37.2; O2SAT 92–98; BMI 24.0
--- NOTE | 2022-07-20 00:39 | PC.NURSE ---
ER speaking with Hospitalist at this time
[2022-07-20 00:40] LABS: Troponin I < 0.01 ng/ml (0.00-0.034)
[2022-07-20 00:59] LABS: Lactic Acid 0.6 mmol/L (0.7-2.1)
--- NOTE | 2022-07-20 01:26 | PC.NURSE ---
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
--- NOTE | 2022-07-20 01:30 | EXP.HP ---
History of Present Illness *Admission Date: 07/20/22 *Reason for visit:: nausea, vomiting, diarrhea *History of present illness: This is a 76-year-old female with past medical history of atrial fibrillation on Xarelto, history of stroke, hyperlipidemia, hypertension who presents emergency department today for complaints of nausea vomiting diarrhea and lethargy. Patient was brought in by EMS for generalized weakness, EMS was called by her family member. She endorses abdominal pain, vomiting diarrhea that started around noon yesterday. Of note patient had recent diagnosis of renal Cell carcinoma. She denies fever but does endorse lower abdominal pain. She reports multiple episodes of diarrhea with 1 episode of vomiting. She denies dysuria or any other urinary symptoms. Emergency department work-up significant for mild leukocytosis with a white blood cell count of 16. Anion gap of 15.9. Negative lactic acid. Urinalysis with positive nitrites and +[address] of her abdomen concerning for severe colitis and marked high-grade stenosis of the left iliac artery, cannot rule out ischemic colitis although colon mucosa still enhances normally. Given patient leukocytosis, diarrhea and lethargy, she will be admitted to the hospital service for further evaluation and management. [facility] Medical History (Updated 07/20/22 @ 03:02 by Minerva Pascual RN) Cancer of kidney Chronic kidney disease Congestive heart failure COPD (chronic obstructive pulmonary disease) Headache Hypothyroid Pneumonia Surgical History (Updated 07/20/22 @ 02:59 by Estefany Bloom RN) History of hysterectomy Family History (Updated 07/20/22 @ 02:59 by Estefany Bloom RN) Other Family history of COPD (chronic obstructive pulmonary disease) Family history of arthritis Family history of cancer Family history of hypothyroidism Social History (Updated 07/20/22 @ 02:59 by Estefany Bloom RN) Smoking Status: Current every day smoker tobacco type: cigarettes packs per day: 40 alcohol intake: never substance use type: denies use current occupational status: retired Travel in the last 8 weeks: [place] the [place] household members: family housing: house caffeine: Yes Review of Systems Constitutional Constitutional: Reports malaise and Reports weakness Eyes Eyes: Reports system reviewed and no additional complaints, except as documented ENT Ears, Nose, Mouth, and Throat: Reports system reviewed and no additional complaints, except as documented *Cardiovascular Cardiovascular: Reports system reviewed and no additional complaints, except as documented *Respiratory Respiratory: Reports system reviewed and no additional complaints, except as documented *Gastrointestinal Gastrointestinal: Reports abdominal pain, Reports diarrhea, Reports nausea and Reports vomiting *Genitourinary Genitourinary: Reports as per HPI *Musculoskeletal Musculoskeletal: Reports system reviewed and no additional complaints, except as documented *Neurologic Neurologic: Reports system reviewed and no additional complaints, except as documented and Reports weakness Endocrine Endocrine: Reports system reviewed and no additional complaints, except as documented Meds Home Medications and Allergies Home Medications Medication Instructions Recorded Confirmed Type pravastatin 40 mg tablet 40 mg PO HS Cholesterol 04/05/21 07/20/22 History lisinopril 20 1 tab PO DAILY Hypertension 04/06/21 08/01/21 History mg-hydrochlorothiazide 25 mg tablet carvedilol 12.5 mg tablet 12.5 mg PO BID Hypertension 07/13/21 07/20/22 History furosemide 20 mg tablet 20 mg PO MOWEFR Fluid 07/13/21 07/20/22 History pantoprazole 40 mg tablet,delayed 40 mg PO HS acid reflux 07/13/21 07/20/22 History release potassium chloride 20 mEq 20 meq PO DAILY potassium 07/13/21 07/20/22 History tablet,extended release(part/cryst) replacement sucralfate 1 gram tablet 1 gm PO ACHS STOMACH 07/13/21
--- NOTE | 2022-07-20 01:31 | PC.NURSE ---
Hospice to call and follow up in the am
--- NOTE | 2022-07-20 02:38 | PC.NURSE ---
PT ARRIVED TO FLOOR VIA STRETCHER AT THIS TIME
--- NOTE | 2022-07-20 03:15 | PC.NURSE ---
ADMISSION COMPLETED TO THE BEST OF MY ABILITY. PT IS A POOR HISTORIAN.
[2022-07-20 03:31] LABS: Troponin I < 0.01 ng/ml (0.00-0.034)
--- NOTE | 2022-07-20 05:28 | PC.NURSE ---
NO ACUTE CHANGES SINCE PT ARRIVED TO THE FLOOR. PT IS A POOR HISTORIAN BUT IS ALERT AND ORIENTED. LUNG SOUNDS ARE DIMINISHED BUT TOLERATING ROOM AIR WELL. TURNING IN BED INDEPENDENTLY. CROUCH IN PLACE DRAINING ADEQUATE AMOUNTS OF URINE. VSS. NO C/O N/V/D. ABD IS SOFT AND TENDER.
[2022-07-20 06:42] LABS: Chloride 113 mmol/L (98-107)
[2022-07-20 06:43] LABS: Potassium 3.3 mmoL/L (3.5-5.1); Sodium 142 mmol/L (136-145)
[2022-07-20 06:45] LABS: Basophils # 0.1 K/mm3 (0-0.2); Basophils % 0.5 % (0.1-2.0); Blood Urea Nitrogen 18 mg/dl (7-17); Creatinine Clearance Estimated 45 mL/min (50-200); Eosinophils % 0.3 % (0.1-12.0); Estimated Glomerular Filt Rate 70 ml/min (>60); GFR (African American) 85 ML/MIN (>60); Hematocrit 39.7 % (37.0-47.0); Lymphocytes # 1.6 K/mm3 (0.7-4.5); Lymphocytes % 14.2 % (10-50); Mean Corpuscular Hemoglobin 29.7 pg (27.0-31.2); Mean Corpuscular Volume 92.7 fl (81-99); Mean Platelet Volume 10.4 fl (7.4-10.4); Monocytes # 0.7 K/mm3 (0.1-1.0); Monocytes % 6.1 % (1.7-9.3); Neutrophils % 78.9 % (37.0-80.0); Platelet Count 325 K/mm3 (142-424); Red Blood Count 4.29 M/mm3 (4.20-5.40); Red Cell Distribution Width 14.2 % (11.5-17.5); White Blood Count 11.4 K/mm3 (4.8-10.8)
[2022-07-20 06:46] LABS: Anion Gap 10.3 mEq/L (5-15); Calcium 7.8 mg/dl (8.4-10.2); Carbon Dioxide 22 mmol/L (22.0-30.0); Glucose 86 mg/dl (74-100); Magnesium 1.7 mg/dl (1.6-2.3); Phosphorous 3.4 mg/dl (2.5-4.5)
[2022-07-20 07:03] LABS: Hemoglobin 12.7 g/dL (12.2-16.2)
--- NOTE | 2022-07-20 08:59 | SW/DCPLANNER ---
Addendum entered by Kiara Gonzalez 07/20/22 15:03: Laura guerra/ [facility] is onsite to speak with this patient. Addendum entered by Kiara Gonzalez 07/20/22 09:24: Per Jeannine guerra/ Hospice patient's stay is not related to Hospice diagnosis. Original Note: This patient has been established with [facility] since October 2021 per Jeannine guerra/ Rui. Jeannine stated that she will notify her team and patient's nurse will reach out to me. Discharge date is unknown at this time and updated patient information will be faxed to Hospice.
--- NOTE | 2022-07-20 19:55 | PC.NURSE ---
Pt is A/ox4. She is RA, and diet was advanced to bland diet. She ate mashed potatoes about half, and tolerated it well. She has rested well most of shift no complaints.
[2022-07-21] VITALS: BP 157/83; PULSE 90; PULSE 92; RESP 20; TEMP 36.9; O2SAT 93
[2022-07-21 03:53] VITALS: BP 151/88; PULSE 91; RESP 19; TEMP 37; O2SAT 94
[2022-07-21 04:00] VITALS: PULSE 85
[2022-07-21 05:00] VITALS: BMI 27.3
--- NOTE | 2022-07-21 05:15 | PC.NURSE ---
PT HAS RESTED WELL THROUGHOUT NIGHT, PT REMAINS ALERT AND ORIENTED, DENIES ANY EPISODES OF NAUSEA, NO EPISODES OF LOOSE STOOL NOTED, BS REMAIN ACTIVE X 4 QUADS, CROUCH CATHETER PATENT AND DRAINING YONY COLORED URINE, LUNGS REMAIN CLEAR, VSS.
[2022-07-21 07:39] VITALS: BP 151/88; PULSE 92; RESP 16; TEMP 36.6; O2SAT 93
[2022-07-21 09:21] LABS: Adenovirus F 40/41, stool Not Detected (NotDetected); Astrovirus Not Detected (NotDetected); Campylobacter Not Detected (NotDetected); Cryptosporidium Not Detected (NotDetected); Cyclospora Cayetanesis Not Detected (NotDetected); Entamoeba histolytica Not Detected (NotDetected); Enteroaggregative E coli Not Detected (NotDetected); Enterotoxigenic E coli Not Detected (NotDetected); Giardia lamblia Not Detected (NotDetected); Norovirus Not Detected (NotDetected); Plesimonas Shigalloides, PCR Not Detected (NotDetected); Rotavirus A Not Detected (NotDetected); Salmonella, PCR Not Detected (NotDetected); Sapovirus Not Detected (NotDetected); Shiga-like toxin E coli Not Detected (NotDetected); Shigella Enterovasive E coli Not Detected (NotDetected); Vibrio Cholerae Not Detected (NotDetected); Vibrio, PCR Not Detected (NotDetected); Yersinia Entercolitica, PCR Not Detected (NotDetected)
--- NOTE | 2022-07-21 09:47 | EXP.DC.SUM ---
General Admission date:: 07/20/22 Discharge date: 07/21/22 HPI HPI HPI: This is a 76-year-old female with past medical history of atrial fibrillation on Xarelto, history of stroke, hyperlipidemia, hypertension who presents emergency department today for complaints of nausea vomiting diarrhea and lethargy. Patient was brought in by EMS for generalized weakness, EMS was called by her family member. She endorses abdominal pain, vomiting diarrhea that started around noon yesterday. Of note patient had recent diagnosis of renal Cell carcinoma. She denies fever but does endorse lower abdominal pain. She reports multiple episodes of diarrhea with 1 episode of vomiting. She denies dysuria or any other urinary symptoms. Emergency department work-up significant for mild leukocytosis with a white blood cell count of 16. Anion gap of 15.9. Negative lactic acid. Urinalysis with positive nitrites and +[address] of her abdomen concerning for severe colitis and marked high-grade stenosis of the left iliac artery, cannot rule out ischemic colitis although colon mucosa still enhances normally. Given patient leukocytosis, diarrhea and lethargy, she will be admitted to the hospital service for further evaluation and management. Hospital Course Hospital Course Hospital Course: Patient admitted for colitis and UTI. Patient was started on IV fluids, Levaquin, and Flagyl and symptoms greatly improved. This morning she reports feeling much better, she continues to have a decreased appetite, however this is chronic for her. She is tolerating food and drink by mouth without difficulty. She did have some diarrhea this morning. Patient reports she is eager to return home. She requires a walker for ambulation. Exam Data for Last 24 hours Vital signs and Labs for Last 24 Hours: Temp Pulse Resp BP Pulse Ox 97.8 F 92 H 16 151/88 H 93 L 07/21/22 07:39 07/21/22 07:39 07/21/22 07:39 07/21/22 07:39 07/21/22 07:39 I & O for Last 24 hours: Intake & Output 07/18/22 07/19/22 07/20/22 07/21/22 23:59 23:59 23:59 23:59 Intake Total 860 / 860 240 / 240 Output Total 3550 / 3550 600 / 600 Balance -2690 / -2690 -360 / -360 Weight 47.627 kg 57.742 kg 65.799 kg Microbiology Reports for the Last 24 Hours: Microbiology 07/19/22 21:45 Urine,Catheterized Urine Culture - Final Escherichia coli Constitutional Constitutional: no acute distress, chronically ill appearing and cooperative *Routine HEENT Exam Head: Present normocephalic and atraumatic Eye: Present EOMI and PERRL ENT: Present mucous membranes moist and oropharynx clear *Routine Neck Exam Neck: Present supple and full ROM *Routine Respiratory Exam Respiratory: Present decreased breath sounds (diffusely ) and CTA bilaterally; Absent accessory muscle use or respiratory distress *Routine Cardiovascular Exam Cardiovascular: Present Normal S1, Normal S2, murmur and irregularly irregular *Routine Abdominal Exam Abdominal: Present soft and normoactive bowel sounds; Absent tenderness, distended, rebound or guarding *Routine Extremities Exam Extremities: Present full ROM, pulses intact and normal capillary refill; Absent edema or tenderness *Routine Neurological Exam Neurological: Present alert, oriented X3, CN II-XII intact, moving all extremities and normal speech; Absent sensory deficit or normal tone Comments: generalized weakness, patient needs a walker to walk and some partial weakness of right UE and LE which are at baseline Routine Psychiatric Exam Psychiatric: Present normal affect, normal thought process, cooperative, good insight and good judgment DS: Diagnosis Discharge Diagnosis (1) Colitis: Status: Acute Problem details: Patient has improved greatly with IV fluids, Levaquin, and Flagyl. She will be discharged home on Cipro and Flagyl. A diarrhea panel was collected today and is pending at time of discharge. (2) Hypertens
--- NOTE | 2022-07-21 10:42 | HMH.PHAINT1 ---
Pharmacy Intervention Comments: DISCHARGE MEDICATION COUNSELING PROVIDED. DISCUSSED SHORT-COURSE (7 DAY) CIPROFLOXACIN (TAKE TAICE DAILY, FOR INFECTION, RECOMMEND TAKING WITH FOOD, MAY CAUSE GI UPSET/WORSEN DIARRHEA, AVOID WITHIN 2 HOURS OF VITAMINS/SUPPLEMENTS) AND METRONIDAZOLE (TAKE TWICE DAILY, FOR INFECTION, RECOMMEND TAKING WITH FOOD, MAY CAUSE GI UPSET, WORSEN DIARRHEA, DO NOT DRINK ALCOHOL OR USE ALCOHOL CONTAINING PRODUCTS WHILE ON THIS MEDICATION IT MAY MAKE YOU VIOLENTLY ILL/NAUSEA/FLUSHING). PATIENT VERBALIZED NO QUESTIONS AT THIS TIME.
[2022-07-21 11:15] LABS: Clostridium Difficile A/B, PCR Detected (NotDetected); Enteropathogenic E coli Detected (NotDetected)
--- NOTE | 2022-07-21 11:19 | PC.NURSE ---
notified MD of positive stool culture.
[2022-07-21 11:41] VITALS: BP 156/84; PULSE 77; RESP 18; TEMP 36.7; O2SAT 94
--- NOTE | 2022-07-21 14:25 | PC.NURSE ---
spoke with hospice regarding pts discharge. IV dislodged per pt. prescri[tions are ready to be picked up at [facility]. flagyl was changed to QID. hospice will follow up after discharge regarding C-diff. pt was up to the chair the majority of the shift. ambulated multiple times to the bathroom and back. walters discontinued and pt was able to urinate post removal. She denies any pain. Alert and appropriate.
--- NOTE | 2022-07-21 15:10 | PC.NURSE ---
pt states she removed her own IV.
--- NOTE | 2022-07-23 14:17 | CARE MANAGER ---
Attempted post-discharge phone interview and patient does not have a working phone number.
== END 2022-07-21 14:35 | disposition home or self-care (01) ==
LOC: ER 22:48 → 2ND 07-20 01:20
PROVIDERS: Nurse Practitioner Acute Care; Admitting Provider Emergency Medicine; Emergency Provider Emergency Medicine; Visit Provider Emergency Medicine
DX: K52.9 Noninfective gastroenteritis and colitis, unspecified (principal); I48.0 Paroxysmal atrial fibrillation; I10 Essential (primary) hypertension; N39.0 Urinary tract infection, site not specified; Z86.73 Personal history of transient ischemic attack (TIA), and cerebral infarction without residual deficits; F17.210 Nicotine dependence, cigarettes, uncomplicated; I70.1 Atherosclerosis of renal artery; I69.351 Hemiplegia and hemiparesis following cerebral infarction affecting right dominant side; N18.9 Chronic kidney disease, unspecified; Z79.01 Long term (current) use of anticoagulants; J44.9 Chronic obstructive pulmonary disease, unspecified; C64.9 Malignant neoplasm of unspecified kidney, except renal pelvis; Z20.822 Contact with and (suspected) exposure to COVID-19
CPT/HCPCS: G0378; 36415; 51702; 71045; 74177; 80048; 80053; 81001; 82150; 83605; 83690; 83735; 84100; 84484; 85007; 85025; 87086; 87088; 87186; 87507; 93005; 99285; C9803; J1956; Q9967; U0003; U0005

== ENCOUNTER 2022-10-15 08:59 | Emergency (ER) | payer OTHER, SELFPAY ==
[2022-10-15] VITALS (7 sets, daily range): BP systolic 136–191; BP diastolic 66–99; PULSE 77–84; RESP 17–30; TEMP 36.5–36.7; O2SAT 88–99; BMI 24.5
--- NOTE | 2022-10-15 09:02 | XR_ITS ---
FINAL REPORT CLINICAL HISTORY: FALL FINDINGS: AP and lateral views of the right hip were obtained. There is no acute fracture or dislocation. There are moderate degenerative changes. Vascular calcifications are noted. Soft tissues are otherwise unremarkable. IMPRESSION: No acute bony abnormality. If symptoms persist or are severe, consider CT or MRI for further evaluation. Reviewed, Interpreted and Dictated by Alfonso Ace III, MD Transcribed by Cinthia Lang Authenticated and [facility]
--- NOTE | 2022-10-15 09:03 | XR_ITS ---
FINAL REPORT CLINICAL HISTORY: FALL FINDINGS: AP and lateral views of the right femur were obtained. There is no acute fracture or dislocation. There are moderate degenerative changes. Vascular calcifications are noted. Soft tissues are otherwise unremarkable. IMPRESSION: No acute bony abnormality. If symptoms persist or are severe, consider CT or MRI for further evaluation. Reviewed, Interpreted and Dictated by Alfonso Ace III, MD Transcribed by Cinthia Lang Authenticated and [facility]
--- NOTE | 2022-10-15 09:18 | PC.NURSE ---
PT TO XR AT THIS TIME
--- NOTE | 2022-10-15 09:31 | PC.NURSE ---
PT RETURNED FROM XR
--- NOTE | 2022-10-15 09:54 | HMH.EDGENADL ---
Discharge Plan Disposition Patient Disposition: Home, Self-Care Condition: Good Chief Complaint: Fall Prescriptions Prescriptions: No Action pravastatin 40 MG tablet 40 mg PO HS ferrous sulfate [FeroSul] 325 mg (65 mg iron) tablet 325 mg PO BID Label Comments: TAKE 1 TABLET BY MOUTH TWICE DAILY FOR LOW IRON rivaroxaban 20 MG tablet 20 mg PO DAILY ciprofloxacin HCl 500 mg tablet 500 mg PO BID 7 Days Qty: 14 0RF metronidazole 500 mg tablet 500 mg PO QID Qty: 28 0RF carvedilol 12.5 MG tablet 12.5 mg PO BID potassium chloride 20 MEQ tablet 20 meq PO DAILY furosemide 20 MG tablet 20 mg PO MOWEFR Label Comments: m/w/f pantoprazole 40 MG tablet,delayed release (DR/EC) 40 mg PO HS Referrals Follow up/Referrals: Provider,Referral, MD [Primary Care Provider] - See instructions Activity Restrictions/Add. Instructions Additional Instructions/Restrictions: Medication/care per hospice. Return to ER for fever, worsening pain Clinical Impressions Clinical Impression: Fall, Acute pain of right hip, Hospice care patient Instructions Patient Instructions: How to Prevent Falls Discharge ED Provider: Jeromy Segovia General Adult HPI General Chief complaint: Fall Stated complaint: FALL Time Seen by Provider: 10/15/22 09:00 Mode of Arrival: EMS Source of Information: Patient and EMS Limitations: No Limitations Description of Symptoms (Recalled from ER Triage Doc. by RN): PT BROUGHT IN VIA EMS FOR FALL AT HOME YESTERDAY AFTERNOON. REPORTS RIGHT HIP PAIN. NO OBVIOUS DEFORMITY. DENIES LOC OR HITTING HEAD History of Present Illness HPI narrative: 77yo F brought to the emergency department by EMS after reporting a fall yesterday afternoon in her home. Complains of right hip pain. Patient is on hospice for renal cancer. Has a history of hypertension, A. fib, constipation, stroke with right-sided residual deficit. Patient denies any head strike or LOC. Patient reports she does not take blood thinners though her medication records is positive for Xarelto. EMS reports the patient was able to bear weight and pivot on her right lower extremity. Patient denies lying on the floor for prolonged period of time. Home health was evaluating the patient today and recommended she be evaluated in the emergency department. Patient is currently on hospice. Related Data Home Medications Medication Instructions Recorded Confirmed pravastatin 40 mg tablet 40 mg PO HS Cholesterol 04/05/21 07/20/22 carvedilol 12.5 mg tablet 12.5 mg PO BID Hypertension 07/13/21 07/20/22 furosemide 20 mg tablet 20 mg PO MOWEFR Fluid 07/13/21 07/20/22 pantoprazole 40 mg tablet,delayed 40 mg PO HS acid reflux 07/13/21 07/20/22 release potassium chloride 20 mEq 20 meq PO DAILY potassium 07/13/21 07/20/22 tablet,extended release(part/cryst) replacement ferrous sulfate 325 mg (65 mg 325 mg PO BID iron supplement 07/20/22 07/20/22 iron) tablet (FeroSul) rivaroxaban 20 mg tablet 20 mg PO DAILY Blood 07/20/22 07/20/22 thinner/atrial fib Previous Rx's Medication Instructions Recorded ciprofloxacin HCl 500 mg tablet 500 mg PO BID 7 days #14 tabs 07/21/22 metronidazole 500 mg tablet 500 mg PO QID #28 tabs 07/21/22 Allergies Allergy/AdvReac Type Severity Reaction Status Date / Time Penicillins Allergy Mild Verified 08/01/21 11:49 [facility] Disclaimer: The information contained in this section may have been updated after the patient was seen, as this information can be updated by other users. Medical History Cancer of kidney Chronic kidney disease Congestive heart failure COPD (chronic obstructive pulmonary disease) Headache Hypothyroid Pneumonia Surgical History History of hysterectomy Family History Other Family h
--- NOTE | 2022-10-15 10:30 | PC.NURSE ---
ROUNDED ON PT, NO NEEDS AT THIS TIME. CALL LIGHT WITHIN REACH
--- NOTE | 2022-10-15 11:05 | PC.NURSE ---
FAMILY NOTIFIED TO PICK PT UP
--- NOTE | 2022-10-15 12:58 | PC.NURSE ---
pt in bed sleeping
== END 2022-10-15 13:00 | disposition home or self-care (01) ==
PROVIDERS: Emergency Provider Family Medicine
DX: M25.551 Pain in right hip (principal); W19.XXXA Unspecified fall, initial encounter; C64.9 Malignant neoplasm of unspecified kidney, except renal pelvis; I48.91 Unspecified atrial fibrillation; I69.351 Hemiplegia and hemiparesis following cerebral infarction affecting right dominant side; I13.0 Hypertensive heart and chronic kidney disease with heart failure and stage 1 through stage 4 chronic kidney disease, or unspecified chronic kidney disease; N18.9 Chronic kidney disease, unspecified; I50.9 Heart failure, unspecified; J44.9 Chronic obstructive pulmonary disease, unspecified; Z90.710 Acquired absence of both cervix and uterus; Z87.891 Personal history of nicotine dependence
CPT/HCPCS: 73502; 73552; 99284

== ENCOUNTER → 2023-03-07 09:31 | Outpatient (CLI) | payer OTHER, SELFPAY ==
--- NOTE | 2023-03-07 09:38 | CT_ITS ---
FINAL REPORT TECHNIQUE: Axial imaging of the abdomen was obtained after the intravenous administration of contrast. This study was performed with techniques to keep radiation doses as low as reasonably achievable (ALARA). Individualized dose reduction techniques using automated exposure control or adjustment of mA and/or kV according to the patient's size were employed. CLINICAL HISTORY: RENAL CELL CARCINOMA,COMPARISON TO LAST CT COMPARISON: 07/20/2022 FINDINGS: The lung bases demonstrate pleural and parenchymal scarring. Gallbladder is present. The gallbladder appears normal without evidence of gallstones. There is no evidence of biliary ductal dilatation. The pancreas appears normal. The spleen size is within normal limits. There is a 1.9 x 1.5 cm heterogeneous mass seen in the periphery of the right kidney which is unchanged. This does not represent a simple cyst. There is a dominant cystic structure in the right kidney which is also unchanged measuring 4.7 x 4.4 cm. There are tiny left renal cysts. There is no evidence of adenopathy. No abnormal fluid collection is seen. No localized inflammatory processes identified. Previously seen abnormal mucosal thickening of the splenic flexure and descending colon has resolved. IMPRESSION: Stable, bilateral benign-appearing renal cysts. Heterogeneous, indeterminate lesion in the periphery of the right kidney, stable in size. Renal cell carcinoma not entirely excluded. Recommend pre and post contrast-enhanced exam for further evaluation. Reviewed, Interpreted and Dictated by Tonny Clemente MD Transcribed by Cinthia Lang Authenticated and [facility]
== END ==
PROVIDERS: Visit Provider Family Medicine Hospice and Palliative Medicine
DX: C64.9 Malignant neoplasm of unspecified kidney, except renal pelvis (principal)
CPT/HCPCS: 74160; Q9967

== ENCOUNTER 2024-06-02 15:55 | Inpatient (IN) | payer MEDICARE, SELFPAY ==
[2024-06-02] VITALS (16 sets, daily range): BP systolic 97–155; BP diastolic 48–82; PULSE 72–126; RESP 18–23; TEMP 36.8–36.9; O2SAT 82–99; BMI 23.8; BMI 23.9
--- NOTE | 2024-06-02 16:27 | XR_ITS ---
PROCEDURE INFORMATION: Exam: XR Chest Exam date and time: 06/02/2024 4:33 PM Age: 78 years old Clinical indication: Other: Vomiting TECHNIQUE: Imaging protocol: Radiologic exam of the chest. Views: 1 view. COMPARISON: 1. CR XR CHEST PORTABLE 07/19/2022 10:59 PM 2. CR XR CHEST PORTABLE 08/06/2021 3:50 PM 3. CR XR CHEST PORTABLE 07/15/2021 8:07 AM FINDINGS: Lungs: Bibasilar bandlike opacities compatible with fibro atelectatic changes similar to previous. Lungs are otherwise clear. Pleural spaces: Unremarkable. No pleural effusion. No pneumothorax. Heart/Mediastinum: Unremarkable. No cardiomegaly. Bones/joints: Unremarkable. IMPRESSION: Stable chest x-ray with no acute disease.
[2024-06-02 16:35] LABS: Basophils # 0.1 K/mm3 (0-0.2); Basophils % 1.1 % (0.1-2.0); Eosinophils # 0.1 K/mm3 (0.0-0.4); Eosinophils % 1.1 % (0.1-12.0); Hematocrit 42.2 % (37.0-47.0); Hemoglobin 13.1 g/dL (12.2-16.2); Lymphocytes # 1.8 K/mm3 (0.7-4.5); Lymphocytes % 18.4 % (10-50); Mean Corpuscular HGB Conc 30.9 g/dL (31.8-35.4); Mean Corpuscular Hemoglobin 28.3 pg (27.0-31.2); Mean Corpuscular Volume 91.5 fl (81-99); Mean Platelet Volume 9.4 fl (7.4-10.4); Monocytes # 0.5 K/mm3 (0.1-1.0); Monocytes % 5.1 % (1.7-9.3); Neutrophils # 7.3 K/mm3 (1.8-7.8); Neutrophils % 74.2 % (37.0-80.0); Platelet Count 399 K/mm3 (142-424); Red Blood Count 4.61 M/mm3 (4.20-5.40); Red Cell Distribution Width 14.4 % (11.5-17.5); White Blood Count 9.8 K/mm3 (4.8-10.8)
--- NOTE | 2024-06-02 16:35 | ECG_ITS ---
APPROVED REPORT Exam: Resting ECG HR:87 bpm ECG Measurements Heart Rate 87 AXES QRSd 106 QRS -73 QT 398 T 236 QTc 442 Conclusion Atrial fibrillation Lateral and inferior T wave inversions without reciprocal change Electronically signed by : MARICRUZ RUIZ, 06/02/2024 21:27:54
[2024-06-02 16:36] LABS: Albumin Level 3.7 g/dl (3.5-5.0); Chloride 106 mmol/L (98-107); Sodium 140 mmol/L (136-145)
[2024-06-02 16:39] LABS: Alanine Aminotransferase 15 U/L (12-78); Anion Gap 9.5 mEq/L (5-15); Aspartate Amino Transferase 23 U/L (14-36); Blood Urea Nitrogen 21 mg/dl (7-17); Carbon Dioxide 27 mmol/L (22.0-30.0); Creatinine Clearance Estimated 39 mL/min (50-200); Estimated Glomerular Filt Rate 48 ml/min (>60); GFR (African American) 58 ML/MIN (>60)
[2024-06-02 16:40] LABS: Albumin/Globulin Ratio 1.1 (1.1-1.8); Alkaline Phosphatase 106 U/L (38-126); Bilirubin,Total 0.5 mg/dl (0.2-1.3); Calcium 8.4 mg/dl (8.4-10.2); Globulin 3.3 g/dL (1.3-3.2); Glucose 119 mg/dl (74-100)
[2024-06-02 16:40] LABS: VBG Base Excess 0.8 mmol/L (-2.4-2.3); VBG HCO3 25.1 mmol/L (23-30); VBG Oxygen Saturation 94.5 % (50-70); VBG PCO2 38.6 mmol/L (35-51); VBG PH 7.43 mmol/L (7.31-7.41); VBG PO2 72.1 mmol/L (28-40); VBG Total CO2 26.3 mmol/L (23-27)
[2024-06-02 16:41] LABS: Lactate Venous 2.3 mmol/L (0.4-2.0)
[2024-06-02 16:45] LABS: Potassium 2.5 mmoL/L (3.5-5.1)
--- NOTE | 2024-06-02 16:45 | PC.NURSE ---
CRITICAL K+ 2.5 RECEIVED FROM LAB, PT NAME AND R/V. DR RUIZ NOTIFIED
[2024-06-02 16:49] LABS: NT Pro Brain Natriuretic Pep. 601 pg/mL (0-450)
[2024-06-02 16:54] LABS: Troponin I < 0.01 ng/ml (0.00-0.034)
[2024-06-02] MEDS: ONDANSETRON 4MG/2ML VIAL 4 MG IV (16:54)
[2024-06-02] MEDS: LACTATED RINGERS 1000ML 1,000 ML 999 ML IV (16:54)
--- NOTE | 2024-06-02 16:56 | HMH.EDGENADL ---
Discharge Plan Disposition Patient Disposition: Home, Self-Care Chief Complaint: Nausea/Vomiting/Diarrhea Prescriptions Prescriptions: New ondansetron 4 mg tablet,disintegrating 4 mg PO Q6H PRN (Reason: nausea and vomiting) Qty: 10 0RF No Action pravastatin 40 MG tablet 40 mg PO HS ferrous sulfate [FeroSul] 325 mg (65 mg iron) tablet 325 mg PO BID Patient Comments: TAKE 1 TABLET BY MOUTH TWICE DAILY FOR LOW IRON rivaroxaban 20 MG tablet 20 mg PO DAILY ciprofloxacin HCl 500 mg tablet 500 mg PO BID 7 Days Qty: 14 0RF metronidazole 500 mg tablet 500 mg PO QID Qty: 28 0RF carvedilol 12.5 MG tablet 12.5 mg PO BID potassium chloride 20 MEQ tablet 20 meq PO DAILY furosemide 20 MG tablet 20 mg PO MOWEFR Patient Comments: m/w/f pantoprazole 40 MG tablet,delayed release (DR/EC) 40 mg PO HS Referrals Follow up/Referrals: Provider,Referral, MD [Primary Care Provider] - See instructions Activity Restrictions/Add. Instructions Additional Instructions/Restrictions: Call your family doctor to establish care for this visit to the emergency department and schedule follow-up within 48 hours to ensure improvement. If you have any worsening of your condition or any other concerning signs or symptoms, return to the emergency department or your primary care doctor for further evaluation. Clinical Impressions Clinical Impression: Acute exacerbation of chronic obstructive pulmonary disease, Acute dehydration, JANKI (acute kidney injury), Acute hypokalemia, Vomiting Instructions Patient Instructions: DI for Diarrhea and Traveler's Diarrhea -- Adult, DI for Diarrhea and Traveler's Diarrhea -- Child, DI for Nausea -- Adult, DI for Nausea -- Child Print Language Print Language: Mongolian Discharge ED Provider: Dominguez Wolff General Adult HPI General Chief complaint: Nausea/Vomiting/Diarrhea Stated complaint: N/V Time Seen by Provider: 06/02/24 15:59 Mode of Arrival: EMS Source of Information: Patient Limitations: No Limitations Description of Symptoms (Recalled from ER Triage Doc. by RN): pt brought in via [employer] [facility] for vomting. pt reports she felt fine until she ate bologna at 1400 and then vomited after. pt reports that she does feel better now that she has vomited. History of Present Illness HPI narrative: Please note that above description of symptoms, in this electronic medical record under categorization of recalled from ER triage doctor by RN are reflective of an initial nursing assessment, however, is not reflective of my full history and physical exam that was personally taken and clarified. Consequentially, this preceding description of symptoms, which may include the patient's categorized chief complaint in the EMR, do not reflect my personal clinical impression, and the ultimate description of history of present illness and patient stated complaints should be deferred to this section of the note. Unless stated otherwise or congruent with this section of the note, additional signs, symptoms, or incongruence should be interpreted as inaccurate with my clinical impression. Related Data Home Medications ?Medication ?Instructions ?Recorded ?Confirmed pravastatin 40 mg tablet 40 mg PO HS Cholesterol 04/05/21 07/20/22 carvedilol 12.5 mg tablet 12.5 mg PO BID Hypertension 07/13/21 07/20/22 furosemide 20 mg tablet 20 mg PO MOWEFR Fluid 07/13/21 07/20/22 pantoprazole 40 mg tablet,delayed 40 mg PO HS acid reflux 07/13/21 07/20/22 release potassium chloride 20 mEq 20 meq PO DAILY potassium 07/13/21 07/20/22 tablet,extended release(part/cryst) replacement ferrous sulfate 325 mg (65 mg 325 mg PO BID iron supplement 07/20/22 07/20/22 iron) tablet (FeroSul) rivaroxaban 20 mg tablet 20 mg PO DAILY Blood 07/20/22 07/20/22 thinner/atrial fib Previous Rx's ?Medication ?Instructions ?Recorded ciprofloxacin HCl 500 mg tablet 500 mg PO BID 7 days #14 tabs 07/21/22 metronidazole 500 mg tablet 500 mg PO QID #28 tabs 07/21/22 ondansetron 4 mg disintegrating 4 mg PO Q6H PRN nausea and 06/02/24 tablet vomiting #10 tabs Allergies Allergy/AdvReac Type Severity Reaction Status Date / Time Penicillins Allergy Mild Verified 08/01/21 11:49 [facility] Disclaimer: The information contained in this section may have been updated after the patient was seen, as this information can be updated by other users. Medical History Cancer of kidney Chronic kidney disease Congestive heart failure COPD (chronic obstructive pulmonary disease) Headache Hypothyroid Pneumonia Surgical History History of hysterectomy Family History Other Family history of COPD (chronic obstructive pulmonary disease) Family history of arthritis Family history of cancer Family history of hypothyroidism Social History Smoking Status: Never smoker alcohol intake: never substance use type: denies use current occupational status: retired Travel in the last 8 weeks: Inside the [place] household members: family housing: house caffeine: Yes ROS Obtained: Yes All systems reviewed & no additional complaints except as documented Physical Exam General General appearance: alert, in no apparent distress and other (Chronically ill,) Head Head exam: atraumatic and normocephalic Eye Eye exam: Present normal appearance, PERRL and EOMI Neck Neck exam: Present normal inspection, full ROM and trachea midline Respiratory Respiratory exam: Present wheezes (Bilaterally); Absent normal lung sounds bilaterally, respiratory distress, stridor, accessory muscle use or prolonged expiratory phase Cardiovascular Cardiovascular exam: Present regular rate, normal rhythm and other (Pulses equal symmetric in upper and lower extremities) Abdominal Exam Abdominal exam: Present soft; Absent distention, tenderness or pulsatile mass Extremities Exam Extremities exam: Present edema (Bilateral lower extremity edema with chronic overlying skin changes.) Neurological Exam Neurological exam: Present alert, oriented X3 and CN II-XII intact; Absent motor sensory deficit Skin Skin exam: Present warm and dry; Absent diaphoresis or erythema Medical Decision Making Medical Records Medical records reviewed: Yes I reviewed the patient's medical records. Jaime Inquiry Pt receiving controlled substance: No Jaime was queried for this patient: No Vital Signs: 06/02/24 16:01 06/02/24 16:30 06/02/24 17:01 Pulse Rate 82 94 H Pulse Rate [Right Brachial] 85 Respiratory Rate 18 Blood Pressure 113/66 155/62 H Blood Pressure [Right Arm] 112/49 L Blood Pressure Mean [Right Arm] 70 02 Sat by Pulse Oximetry 88 L 92 L 99 Oxygen Delivery Method Room Air Nasal Cannula Room Air Oxygen Flow Rate (LPM) 2 06/02/24 17:31 06/02/24 18:01 06/02/24 18:30 Pulse Rate 99 H 74 126 H Pulse Rate [Right Brachial] Respiratory Rate 22 21 23 Blood Pressure 155/68 H 126/59 L 141/72 H Blood Pressure [Right Arm] Blood Pressure Mean [Right Arm] 02 Sat by Pulse Oximetry 99 98 96 Oxygen Delivery Method Room Air Room Air Oxygen Flow Rate (LPM) 06/02/24 19:15 06/02/24 19:45 Pulse Rate 121 H 111 H Pulse Rate [Right Brachial] Respiratory Rate 20 18 Blood Pressure 113/56 L 97/48 L Blood Pressure [Right Arm] Blood Pressure Mean [Right Arm] 02 Sat by Pulse Oximetry 89 L 90 L Oxygen Delivery Method Oxygen Flow Rate (LPM) Lab Data Lab Results 06/02/24 16:04: WBC 9.8, RBC 4.61, Hgb 13.1, Hct 42.2, MCV 91.5, MCH 28.3, MCHC 30.9 L, RDW 14.4, Plt Count 399, MPV 9.4, Neut % (Auto) 74.2, Lymph % (Auto) 18.4, [place] % (Auto) 5.1, Eos % (Auto) 1.1, Baso % (Auto) 1.1, Neut # (Auto) 7.3, Lymph # (Auto) 1.8, [place] # (Auto) 0.5, Eos # (Auto) 0.1, Baso # (Auto) 0.1, Sodium 140, Potassium 2.5 L*, Chloride 106, Carbon Dioxide 27, Anion Gap 9.5, BUN 21 H, Creatinine 1.10 H, Estimated Creat Clear 39, Estimated GFR 48 L, Est GFR ( Amer) 58 L, Glucose 119 H, Calcium 8.4, Total Bilirubin 0.5, AST 23, ALT 15, Alkaline Phosphatase 106, Troponin I < 0.01, NT-Pro-B Natriuret Pep 601 H, Total Protein 7.0, Albumin 3.7, Globulin 3.3 H, Albumin/Globulin Ratio 1.1 06/02/24 16:29: VBG pH 7.43 H, VBG pCO2 38.6, VBG pO2 72.1 H, VBG HCO3 25.1, VBG Total CO2 26.3, VBG O2 Saturation 94.5 H, VBG Base Excess 0.8, VBG Lactic Acid 2.3 H 06/02/24 19:34: Troponin I < 0.01 06/02/24 16:04 06/02/24 16:04 Orders (Tests/Meds): ED MEDICATIONS Generic Name Dose Route Start Last Admin Trade Name Freq PRN Reason Stop Dose Admin Lactated Ringer's 1,000 mls @ 150 mls/hr 06/02/24 19:15 06/02/24 19:24 Lactated Ringer's 1000 Ml Bag IV 07/02/24 19:14 150 mls/hr .Q6H40M ALBERTA Administration Discontinued Medications Generic Name Dose Route Start Last Admin Trade Name Freq PRN Reason Stop Dose Admin Albuterol/Ipratropium 9 ml 06/02/24 16:57 06/02/24 17:07 Ipratropium/Albuterol 3 Ml Neb IH 06/02/24 16:58 9 ml ONCE ONE Administration Lactated Ringer's 1,000 mls @ 999 mls/hr 06/02/24 16:27 06/02/24 16:54 Lactated Ringer's 1000 Ml Bag IV 06/02/24 17:27 999 mls/hr .Q1H1M ONE Administration Potassium Chloride/Water 100 mls @ 100 mls/hr 06/02/24 17:00 06/02/24 20:28 Potassium Chloride 10meq/100ml Ivpb IV 06/02/24 19:59 100 mls/hr Q1H ALBERTA Administration Ceftriaxone Sodium 2 gm/ 100 mls @ 200 mls/hr 06/02/24 16:57 06/02/24 17:07 Sodium Chloride IV 06/02/24 17:26 200 mls/hr ONCE ONE Administration Methylprednisolone Sodium Succinate 125 mg 06/02/24 16:57 06/02/24 17:06 Methylprednisolone Sod Succ 125mg Vial IV 06/02/24 16:58 125 mg ONCE ONE Administration Ondansetron HCl 4 mg 06/02/24 16:27 06/02/24 16:54 Ondansetron 4mg/2ml Vial IV 06/02/24 16:28 4 mg ONCE ONE Administration Potassium Chloride 60 meq 06/02/24 16:53 06/02/24 17:06 Potassium Chloride 20meq Tab PO 06/02/24 16:54 60 meq ONCE ONE Administration ORDERS Category Date Time Status CXR --portable [XR chest portable] Stat Exams 06/02/24 16:27 Completed Complete Blood Count Auto Diff Stat Lab 06/02/24 16:04 Completed Comprehensive Metabolic Panel Stat Lab 06/02/24 16:04 Completed Lactic Acid Follow Up (RFLX 1) Stat Lab 06/02/24 20:41 Ordered NT Pro Brain Natriuretic Pep. Stat Lab 06/02/24 16:04 Completed Troponin I Q3H Lab 06/02/24 19:34 Completed Troponin I Q3H Lab 06/02/24 22:30 Ordered Troponin I Stat Lab 06/02/24 16:04 Completed Blood Culture Stat Micro 06/02/24 17:02 Received Venous Blood Gas Stat RT 06/02/24 16:29 Completed Medical Decision Narrative: 78-year-old female history, per lipidemia, CVA with right-sided weakness, atrial fibrillation on Xarelto, COPD not on home oxygen presenting with patient states she ate a bologna sandwich just prior to arrival, started vomiting. retirement staff concerned that she choked on some of her food, so brought her in after her second episode of vomiting. No loss of consciousness, no cyanosis, patient states that she feels generally weak and thirsty, but denies any chest pain, shortness of breath, cough, fevers, chills, abdominal pain, or any other concerns at this time. Patient states that she would not of come in if she was not forced by her shelter. History was obtained via conversation with patient and EMS. On arrival, patient hemodynamically stable, alert, oriented x4, appropriate, GCS 15, moving all extremities spontaneously, pupils equal and reactive to light. Full physical exam performed and significant for chronically ill-appearing woman in no acute distress. She is saturating 88 to 90% on room air sleeping on my initial evaluation. Patient lungs are diffusely wheezy bilaterally. Abdomen soft, nontender, nondistended. Patient's cardiac exam without murmurs gallops rubs with normal S1-S2, lower extremity edema that is 2+, pitting with overlying chronic skin changes. Differential includes pneumonia, aspirated foreign body, food intolerance, CHF, ACS, gastritis, enteritis, dehydration, among others. Patient placed on continuous cardiac monitoring and continuous pulse ox with initial blood pressure 113/66, heart rate 82, saturation 92% on room air. Independent interpretation of EKG shows atrial fibrillation with T wave inversions V5 V6 1 and aVL. No reciprocal QRS 106, QTc 442. Patient was given 2 g ceftriaxone, Solu-Medrol, DuoNebs for symptomatic management and correction of underlying abnormalities. Workup independently interpreted and significant for hypokalemia. This was reviewed needed. Nonactionable CBC. VBG mildly alkalotic, but nonactionable overall. Mild JANKI creatinine 1.1. Troponin negative. BNP mildly elevated, but chest x-ray nonedematous. On independent interpretation of imaging, no acute cardiopulmonary airspace disease within confines of exam. See radiology read for full review of final results. Heart score 4. Patient was placed in observation beginning at 4:30 PM in order to replete potassium, give meds and determine need for admission versus home-going. The patient was provided cardiac monitoring, p.o. challenge while awaiting results. On reevaluation, patient still baseline without any acute complaints, wishing to go home. At this time, I feel patient is appropriate for discharge. Total observation time 5 hours. Because patient at baseline without signs or symptoms of clinical decompensation, deemed appropriate for discharge. Results were relayed to patient who voiced understanding and were agreeable to outpatient management and follow up. I discussed my clinical impression with patient and answered all questions. At this time, the evidence for any other entities in the differential is insufficient to warrant any further testing or ED observation. This was explained as well. Advisory was given that persistent or worsening symptoms require further evaluation. I confirmed the understanding of this discussion. Sole Layer Hand disclaimer Much of this encounter note is an electronic joggle press operator spoken language to printed text. Electronic joggle press operator of the spoken language may permit errors. Although I have reviewed the note, some errors may still exist. Critical Care Critical Care Time Critical Care Time: No
[2024-06-02] MEDS: METHYLPREDNISOLONE SOD SUCC 125MG VIAL 125 MG IV (17:06)
[2024-06-02] MEDS: POTASSIUM CHLORIDE 20MEQ TAB 60 MEQ PO (17:06)
[2024-06-02] MEDS: CEFTRIAXONE SODIUM 2 GM in 0.9 % SODIUM CHLORIDE 100 ML IV (17:07)
[2024-06-02] MEDS: IPRATROPIUM/ALBUTEROL 3 ML NEB 9 ML IH (17:07)
[2024-06-02] MEDS: KCl 10mEq/100ml 100 ML 100 MEQ IV ×3 (17:30→20:28)
[2024-06-02] MEDS: LACTATED RINGERS 1000ML 1,000 ML 150 ML IV (19:24)
[2024-06-02 20:04] LABS: Troponin I < 0.01 ng/ml (0.00-0.034)
[2024-06-02 20:41] LABS: Reflex Lactic Add Lactic Reflex
[2024-06-02 21:34] LABS: Lactic Acid Follow Up (RFLX 1) 2.4 mmol/L (0.7-2.1)
--- NOTE | 2024-06-02 21:47 | PC.NURSE ---
phone call to family, there is no one to come pick her up until in the morning
--- NOTE | 2024-06-02 22:13 | PC.NURSE ---
patient will be staying in the ER until morning when family can pick her up
--- NOTE | 2024-06-02 22:23 | PC.NURSE ---
Dr. Wolff s/w hospitalist for admission
--- NOTE | 2024-06-02 22:32 | PC.NURSE ---
call placed to bess mcdonald. dx: hypokalemia, copd exacerbation
--- NOTE | 2024-06-02 22:38 | PC.NURSE ---
report called to GILBERTO Rubio
--- NOTE | 2024-06-02 22:39 | CT_ITS ---
PROCEDURE INFORMATION: Exam: CT Chest Without Contrast; Diagnostic Exam date and time: 06/02/2024 10:57 PM Age: 78 years old Clinical indication: Shortness of breath; Additional info: Abnormal cxr in a smoker TECHNIQUE: Imaging protocol: Diagnostic computed tomography of the chest without contrast. Radiation optimization: All CT scans at this facility use at least one of these dose optimization techniques: automated exposure control; mA and/or kV adjustment per patient size (includes targeted exams where dose is matched to clinical indication); or iterative reconstruction. COMPARISON: 1. CR XR CHEST PORTABLE 06/02/2024 4:[address] ABDOMEN W CON 03/07/2023 10:26 AM FINDINGS: Lungs: Posterior [id number] lower lobe consolidation [id number] worrisome for developing pneumonia. A 11 mm potential ground-glass nodular density posterior left upper lobe on image 46 of series 3 and a 12 mm potential ground-glass nodular density in the posterosuperior segment of the left lower lobe on image 42. Lung montes otherwise clear. Pleural spaces: Unremarkable. No pneumothorax. No pleural effusion. Heart: Unremarkable. No cardiomegaly. No pericardial effusion. Coronary arteries: Extensive coronary artery calcifications suggesting coronary artery disease. Atherosclerotic changes of the thoracic aorta. Aorta normal caliber. No evidence of aneurysm . Lymph nodes: Unremarkable. No enlarged lymph nodes. Vasculature: See Coronary arteries finding. Bones/joints: Unremarkable. No acute fracture. Soft tissues: Benign-appearing right renal cyst redemonstrated. No follow-up advised. IMPRESSION: 1. Bilateral posterior lower lobe consolidations suggesting developing pneumonia potentially related to aspiration pneumonia. Advise follow-up CT in 3 months to ensure resolution. 2. Incidental ground-glass nodular densities in the left upper and left lower lobes largest measuring 12 mm. These might reflect focal areas of pneumonitis but developing ground-glass nodules not excluded. Recommend CT Chest at 3-6 months. Subsequent management based on the most suspicious nodule(s). (Reference: Carmela) 3. Extensive coronary artery calcifications suggesting coronary artery disease. REFERENCES: Carmela Solano, et al. Guidelines for Management of Incidental Pulmonary Nodules Detected on CT Images: From the Fleischner Society 2017. Radiology. 2017;284(1):228-243.
[2024-06-02 22:42] LABS: Reflex Lactic (2 hrs) Add Lactic Reflex
--- NOTE | 2024-06-02 23:01 | PC.NURSE ---
pt arrived to floor via wheelchair @23:00
--- NOTE | 2024-06-02 23:20 | P.HP_ITS ---
History of Present Illness *Admission Date: 06/02/24 *Reason for visit:: Choking and trouble breathing *History of present illness: This is a 78-year-old female that presents to [facility] emergency department for evaluation of choking, vomiting and trouble breathing. She describes a chronic tobacco use history (1 pack/day greater than 50 years) with no home oxygen. She reports choking on food with subsequent emesis. She was evaluated and found to be hypoxemic in the ED and required oxygen supplementation to maintain appropriate oxygen saturations. She was hypokalemic with acute kidney injury (baseline creatinine 0.8). She reported improvement with oxygen supplementation. [facility] Medical History (Updated 06/02/24 @ 23:30 by José Miguel Murray MD) Peripheral vascular disease Renal cell carcinoma Chronic venous stasis Paroxysmal atrial fibrillation Tobacco dependence COPD (chronic obstructive pulmonary disease) Surgical History History of hysterectomy Family History Other Family history of COPD (chronic obstructive pulmonary disease) Family history of arthritis Family history of cancer Family history of hypothyroidism Social History (Updated 06/02/24 @ 23:32 by José Miguel Murray MD) Smoking Status: Current every day smoker tobacco type: cigarettes packs per day: 40 years smoked: 50 alcohol intake: never substance use type: denies use current occupational status: retired Travel in the last 8 weeks: Inside the [place] household members: family housing: house caffeine: Yes Review of Systems Review of Systems Review of systems:: pertinent systems reviewed and negative unless documented below Constitutional Constitutional: Reports weakness *Cardiovascular Cardiovascular: Denies chest pain, Denies chest pain at rest, Reports dyspnea, Reports dyspnea on exertion, Denies orthopnea and Denies palpitations *Respiratory Respiratory: Reports dyspnea and Reports dyspnea on exertion *Gastrointestinal Gastrointestinal: Denies loose stools, Denies nausea and Reports vomiting *Neurologic Neurologic: Reports weakness Endocrine Endocrine: Denies palpitations Meds Home Medications and Allergies Home Medications ?Medication ?Instructions ?Recorded ?Confirmed ?Type pravastatin 40 mg tablet 40 mg PO HS Cholesterol 04/05/21 07/20/22 History carvedilol 12.5 mg tablet 12.5 mg PO BID Hypertension 07/13/21 07/20/22 History furosemide 20 mg tablet 20 mg PO MOWEFR Fluid 07/13/21 07/20/22 History pantoprazole 40 mg tablet,delayed 40 mg PO HS acid reflux 07/13/21 07/20/22 History release potassium chloride 20 mEq 20 meq PO DAILY potassium 07/13/21 07/20/22 History tablet,extended release(part/cryst) replacement ferrous sulfate 325 mg (65 mg 325 mg PO BID iron supplement 07/20/22 07/20/22 History iron) tablet (FeroSul) rivaroxaban 20 mg tablet 20 mg PO DAILY Blood 07/20/22 07/20/22 History thinner/atrial fib ciprofloxacin HCl 500 mg tablet 500 mg PO BID 7 days #14 tabs 07/21/22 Rx metronidazole 500 mg tablet 500 mg PO QID #28 tabs 07/21/22 Rx ondansetron 4 mg disintegrating 4 mg PO Q6H PRN nausea and 06/02/24 Rx tablet vomiting #10 tabs New Prescriptions to Start Prescriptions: ondansetron Dominguez Wolff Allergies Allergy/AdvReac Type Severity Reaction Status Date / Time Penicillins Allergy Mild Verified 08/01/21 11:49 Exam Data for Last 24 hours Vital signs and Labs for Last 24 Hours: Temp Pulse Resp BP Pulse Ox O2 Del Method O2 Flow Rate 98.3 F 72 18 152/82 H 82 L Nasal Cannula 2 06/02/24 22:39 06/02/24 22:39 06/02/24 22:39 06/02/24 22:39 06/02/24 22:22 06/02/24 22:39 06/02/24 22:39 Laboratory Results - last 24 hr 06/02/24 16:04: WBC 9.8, RBC 4.61, Hgb 13.1, Hct 42.2, MCV 91.5, MCH 28.3, MCHC 30.9 L, RDW 14.4, Plt Count 399, MPV 9.4, Neut % (Auto) 74.2, Lymph % (Auto) 18.4, Fergus % (Auto) 5.1, Eos % (Auto) 1.1, Baso % (Auto) 1.1, Neut # (Auto) 7.3, Lymph # (Auto) 1.8, Fergus # (Auto) 0.5, Eos # (Auto) 0.1, Baso # (Auto) 0.1, Sodium 140, Potassium 2.5 L*, Chloride 106, Carbon Dioxide 27, Anion Gap 9.5, BUN 21 H, Creatinine 1.10 H, Estimated Creat Clear 39, Estimated GFR 48 L, Est GFR ( Amer) 58 L, Glucose 119 H, Calcium 8.4, Total Bilirubin 0.5, AST 23, ALT 15, Alkaline Phosphatase 106, Troponin I < 0.01, NT-Pro-B Natriuret Pep 601 H, Total Protein 7.0, Albumin 3.7, Globulin 3.3 H, Albumin/Globulin Ratio 1.1 06/02/24 16:29: VBG pH 7.43 H, VBG pCO2 38.6, VBG pO2 72.1 H, VBG HCO3 25.1, VBG Total CO2 26.3, VBG O2 Saturation 94.5 H, VBG Base Excess 0.8, VBG Lactic Acid 2.3 H 06/02/24 19:34: Troponin I < 0.01 06/02/24 20:30: Lactate 2.4 H I & O for Last 24 hours: Intake & Output 05/30/24 05/31/24 06/01/24 06/02/24 23:59 23:59 23:59 23:59 Weight 57.153 kg Constitutional Constitutional: no acute distress, chronically ill appearing and cooperative *Routine HEENT Exam Head: Present normocephalic and atraumatic Eye: Present EOMI and PERRL ENT: Present mucous membranes moist *Routine Neck Exam Neck: Present supple; Absent JVD or lymphadenopathy *Routine Respiratory Exam Respiratory: Present decreased breath sounds, rhonchi, wheezes, diminished air movement and symmetric chest movement; Absent respiratory distress *Routine Cardiovascular Exam Cardiovascular: Present irregular rhythm *Routine Abdominal Exam Abdominal: Present soft and normoactive bowel sounds; Absent tenderness *Routine Rectal Exam Rectal:: deferred *Routine Genitalia Exam Genitalia:: deferred *Routine Extremities Exam Extremities: Present edema; Absent cyanosis or clubbing *Routine Skin Exam Skin: Present wounds *Routine Neurological Exam Neurological: Present alert, oriented X3, moving all extremities, vision grossly intact and hearing grossly intact; Absent sensory deficit or motor deficit Routine Psychiatric Exam Psychiatric: Present normal affect, cooperative and good insight Assessment and Plan *Assessment and plan (1) Acute exacerbation of chronic obstructive pulmonary disease: Status: Acute Category: Medical Code(s): J44.1 - Chronic obstructive pulmonary disease with (acute) exacerbation (2) Tobacco dependence: Status: Acute Category: Medical Code(s): F17.200 - Nicotine dependence, unspecified, uncomplicated (3) JANKI (acute kidney injury): Status: Acute Category: Medical Code(s): N17.9 - Acute kidney failure, unspecified (4) Acute hypokalemia: Status: Acute Category: Medical Code(s): E87.6 - Hypokalemia (5) Paroxysmal atrial fibrillation: Status: Acute Category: Medical Code(s): I48.0 - Paroxysmal atrial fibrillation (6) Chronic venous stasis: Status: Acute Category: Medical Code(s): I87.8 - Other specified disorders of veins Plan This is a 78-year-old female that had difficulty swallowing with identified emesis and subsequent shortness of air. She has a chronic tobacco use history and previously identified COPD on no home oxygen. She is chronically anticoagulated for her atrial fibrillation. Her intake assessment identified chronic venous stasis with bilateral lower extremity wounds. Her ED evaluation identified acute kidney injury. Problems addressed as follows: COPD acute exacerbation present on admission Aspiration pneumonitis Tobacco dependence Pulse oximetry monitoring Oxygen therapy to maintain appropriate oxygen saturations No home oxygen reported ED chest x-ray with fibrous changes CT chest pending Trending labs and inflammatory markers Kourtney/Roxy inhalation therapy ICS therapy P.o. prednisone therapy PPI therapy IV Rocephin P.o. doxycycline Tobacco cessation education Nicotine replacement therapy Case management consult for discharge planning including oxygen DME Acute kidney injury Hypokalemia Dehydration Baseline creatinine 0.8 IV fluid resuscitation Potassium replacement therapy Trending electrolytes, magnesium and creatinine Avoiding NSAIDs Paroxysmal atrial fibrillation Telemetry monitoring ED ECG with atrial fibrillation controlled rate [id number] Transitioning Xarelto to Eliquis (age greater than 75) Beta-otis therapy Chronic venous stasis Chronic leg wounds Wound care MRSA screening Antibiotic therapy
[2024-06-02] MEDS: 0.9 % SODIUM CHLORIDE 1000ML 1,000 ML 125 ML IV (23:30)
[2024-06-02 23:34] LABS: Lactic Acid Follow up (RFLX 2) 5.1 mmol/L (0.7-2.1)
[2024-06-02 23:44] LABS: Troponin I 0.02 ng/ml (0.00-0.034)
[2024-06-02 23:57] LABS: Coronavirus 19, PCR Not Detected (NotDetected); Influenza A, PCR Not Detected (NotDetected); Influenza B, PCR Not Detected (NotDetected)
[2024-06-03] VITALS (15 sets, daily range): BP systolic 111–154; BP diastolic 60–84; PULSE 72–102; RESP 20–22; TEMP 36.3–36.9; O2SAT 85–93; BMI 24.5
[2024-06-03] MEDS: POTASSIUM CHLORIDE 20MEQ TAB 40 MEQ PO
[2024-06-03] MEDS: IPRATROPIUM/ALBUTEROL 3 ML NEB IH ×6 (00:18→23:44)
--- NOTE | 2024-06-03 00:18 | PC.NURSE ---
Lab informed me at around 23:30 that the patient had a critical lab value (Lactate 5.1). Terri was informed.
[2024-06-03] MEDS: ACETAMINOPHEN 325MG TAB 1000 MG PO (02:05)
--- NOTE | 2024-06-03 02:12 | PC.NURSE ---
Chronic venous stasis ulcers observed above, located on anterior surface of lower legs. Wounds were observed to be dry, intact, and free of drainage. Skin surrounding wounds is very dry, rough, and flaky. Wounds do not pit.
--- NOTE | 2024-06-03 06:00 | PC.NURSE ---
Ms Colon was newly admitted from the ER this shift due to COPD exacerbation. She initially presented to the ER with complaints of nausea and vomiting. Patient has a history of a stroke, chronic venous stasis disorder, tobacco dependence, hypokalemia, colitis, afib, and dehydration. Patient has bilateral chronic venous stasis ulcers on the anterior sides of the lower legs; patient voiced that these ulcers do not affect her and were not observed to be open or draining this shift. Patient complained of leg pain once this shift and was given Tylenol per DEC; patient reported relief. Patient has remained on 2 L of oxygen via nasal cannula this shift; her oxygen saturations has fluctuated from 90% to 91% tops. Right-sided weakness post-stroke was noted. Patient is alert and oriented, but was noticed to have occasional periods of disorientation; patient was not sure what time of day it was. Patient is incontinent of both stool and urine; she states that her waste comes out like water and she does not feel the urge to defecate nor void. Patient was given a bed bath this shift. She was observed to have her eyes closed, respirations even, and no apparent distress throughout the majority of the shift. Audible wheezing was heard whenever the patient sat up to take a drink of water; patient's lung sounds were diminished upon auscultation. Patient is also tachycardic on telemetry. At this time, she has not voiced any further complaints. Normal saline is currently infusing at 125 mL/hr. She received scheduled medications per DEC; medication reconciliation was completed this shift. She is currently resting supine in bed. Bed alarm on. Call light within reach.
[2024-06-03] MEDS: BUDESONIDE 0.5MG/2ML NEB 0.5 MG IH ×2 (06:08→18:46)
[2024-06-03] MEDS: CEFTRIAXONE SODIUM 1 GM in 0.9 % SODIUM CHLORIDE 50 ML IV (06:30)
[2024-06-03 07:02] LABS: Chloride 113 mmol/L (98-107)
[2024-06-03 07:03] LABS: Potassium 3.7 mmoL/L (3.5-5.1); Sodium 141 mmol/L (136-145)
[2024-06-03 07:06] LABS: Anion Gap 6.7 mEq/L (5-15); Blood Urea Nitrogen 21 mg/dl (7-17); Calcium 8.2 mg/dl (8.4-10.2); Carbon Dioxide 25 mmol/L (22.0-30.0); Creatinine Clearance Estimated 40 mL/min (50-200); Estimated Glomerular Filt Rate 48 ml/min (>60); GFR (African American) 58 ML/MIN (>60); Glucose 201 mg/dl (74-100); Magnesium 1.7 mg/dl (1.6-2.3)
--- NOTE | 2024-06-03 07:58 | PC.NURSE ---
RT here to do six minute walk. Patient's oxygen saturation is 85% on room air, at rest. RT will cancel six minute walk.
[2024-06-03] MEDS: predniSONE 20MG TAB 40 MG PO (09:18)
[2024-06-03] MEDS: CARVEDILOL 12.5MG TABLET 12.5 MG PO ×2 (09:18→20:21)
[2024-06-03] MEDS: DOXYCYCLINE HYCL 100 MG TABLET PO ×2 (09:18→20:21)
[2024-06-03] MEDS: APIXABAN 5MG TABLET 5 MG PO ×2 (09:18→20:21)
--- NOTE | 2024-06-03 09:45 | HMH.PHAINT1 ---
Pharmacy Intervention Comments: HOME MEDICATION LIST VERIFIED USING LIST FROM OUTPATIENT PHARMACY
--- NOTE | 2024-06-03 09:45 | PC.NURSE ---
86% on room air at rest. 2lnc re-applied
--- NOTE | 2024-06-03 12:05 | HMH.SLDYSPHA ---
Speech & Language Evaluation Speech/Language Dysphagia Evaluation Start: 06/03/24 11:50 Freq: ONCE Status: Active Protocol: Document 06/03/24 11:50 AUBREY (Rec: 06/03/24 12:05 Entrecard Laptop) Co-signed By ST Janneth Dysphagia Assess/Goals/Plan Assessment Date of Evaluation: 06/03/24 Evaluation Type Initial Certification Assessment/Problems dysphagia per MD order Does Patient Qualify for Service No Qualify/Failure Comment Based on clinical observations made throughout the bedside clinical swallow evaluation and pt interview, further skilled speech services are not warranted at this time d/t no overt s/sx of aspiration. Recommendations PHYSICIAN CERTIFICATION: The specified therapy services are required, authorized, and reviewed every 30 days. Diet Recommendations Mechanical Soft Liquid Type Recommendations Normal/Thin SL Swallow Guidelines Alt bite w/sip thru meal, Standard Aspiration Prec.,Eat at slow rate Dysphagia Swallow Precautions/Strategies Sitting Upright (90 deg),Small Bites and Sips,Alternate Liquids/Solids Plan Pt/Guardian verbally ack understanding Yes of dx/prognosis/goals G -code Required No Education Instructions provided Clinical observations made throughout the bedside CSE, diet recommendations, and aspiration precautions/ compensatory strategies were discussed with pt and MD who expressed understanding. Pt/Caregiver able to recall information Able to recall/restate Reinforcement needed No Speech & Language HPI History Present Illness Description of Patient Problem SCRUBBER SYSTEM ATTENDANT pulled the following information from H&P, chest x- ray, and chest CT: This is a 78-year-old female that presents to [facility] emergency department for evaluation of choking, vomiting and trouble breathing. She describes a chronic tobacco use history (1 pack/day greater than 50 years) with no home oxygen. She reports choking on food with subsequent emesis. She was evaluated and found to be hypoxemic in the ED and required oxygen supplementation to maintain appropriate oxygen saturations . She was hypokalemic with acute kidney injury (baseline creatinine 0.8). She reported improvement with oxygen supplementation. Chest x-ray: Lungs: Bibasilar bandlike opacities compatible with fibro atelectatic changes similar to previous. Lungs are otherwise clear. Pleural spaces: Unremarkable. No pleural effusion. No pneumothorax. Heart/Mediastinum: Unremarkable. No cardiomegaly. Bones/joints: Unremarkable. Chest CT: 1. Bilateral posterior lower lobe consolidations suggesting developing pneumonia potentially related to aspiration pneumonia. Advise follow-up CT in 3 months to ensure resolution. 2. Incidental ground-glass nodular densities in the left upper and left lower lobes largest measuring 12 mm. These might reflect focal areas of pneumonitis but developing ground-glass nodules not excluded. Recommend CT Chest at 3-6 months. Subsequent management based on the most suspicious nodule(s). (Reference: Carmela) 3. Extensive coronary artery calcifications suggesting coronary artery disease. Rehab Services Assessed Speech therapy Is this evaluation r/t stroke? No Language Primary Language Syriac General Information General Current Food Consistancy Regular,Thin Liquids Dentition Edentulous Oxygen Status Nasal Cannula Patient Orientation Person,Place,Time,Situation Ability to Follow Directions Excellent Communication Ability No Impairment Dysphagia:Food Presentation Evaluation Food Type Pureed,Mechanical Soft,Regular ,Liquid,Pudding Pudding Consistency Liquid Response Coughing after swallow Dysphagia Evaluation Mechanical Soft Coughing after swallow Food Behavior Response Dysphagia Evaluation Summary A bedside clinical swallow evaluation was given on this date with pt sitting upright using a nasal cannula. Bolus consistencies given included: thin liquid (water) via cup and straw, pudding, puree ( applesauce), and mechanical soft (Nutrigrain bar). All bolus presentations were trialed x2 to assess for fatigue and consistency. Regular foods were not trialed d/t dentition. Pt stated that she has dentures but she left them at home. No overt s/sx were exhibited on thin liquid via cup and straw and puree trials. Pt exhibited x1 cough on the first trial of pudding and mech soft, which could be d/t talking during swallow. On second trial of each consistency, pt did not exhibit any overt s/sx of aspiration. SCRUBBER SYSTEM ATTENDANT recommends mechanical soft foods and thin liquid diet. SCRUBBER SYSTEM ATTENDANT will f/u for diet tolerance. Stroke Dysphagia Assessment PHYSICIAN CERTIFICATION: I certify the specified therapy services for Emy Lou Isaiah are required, authorized, and reviewed every 30 days.
--- NOTE | 2024-06-03 12:33 | CARE MANAGER ---
Addendum entered by Jeanne Culver RN 06/05/24 14:33: Information sent to [facility] today. Original Note: patient will require O2 once discharged home and has requested to use [facility].
[2024-06-03 13:30] LABS: Procalcitonin 0.144 ng/mL (0.0-2.0)
--- NOTE | 2024-06-03 14:04 | HMH.OTEV ---
OT Inpatient Evaluation Rehab OT IP Evaluation Start: 06/03/24 11:13 Freq: ONCE Status: Active Protocol: Document 06/03/24 13:55 FLORESGERALDINE (Rec: 06/03/24 14:04 [email or web address] [id number]) Rehab OT IP Assessment Subjective History This is a 78-year-old female that presents to [facility] emergency department for evaluation of choking, vomiting and trouble breathing. She describes a chronic tobacco use history (1 pack/day greater than 50 years) with no home oxygen. She reports choking on food with subsequent emesis. She was evaluated and found to be hypoxemic in the ED and required oxygen supplementation to maintain appropriate oxygen saturations . She was hypokalemic with acute kidney injury (baseline creatinine 0.8). She reported improvement with oxygen supplementation. PMH: Peripheral vascular disease Renal cell carcinoma Chronic venous stasis Paroxysmal atrial fibrillation Tobacco dependence COPD (chronic obstructive pulmonary disease) Patient lives at home with brother and sister in law. Lives in 1 story home with 2-3 KAREN. Patient uses a RW to ambulate within home. Brother and sister in law assist with transportation, cooking and cleaning of the house. Patient verbalize being independent with ADLs and fx'l mobility. Subjective I can walk. Analysis Patient's ability to complete bed mobility, transfers, fx'l mobility and LB drsg of ADLs. Patient completed all ADLs with SBA and fx'l mobility with CGA for safety. Patient reqiured extended time for mobility with slower mobility pace. No LOB noted. Patient incontinent with bowel mgt tr this date. Instructed Patient on bed mobility strategies to complete brief and betty hygiene. Patient unaware of being incontinet with bowel and bladder mgt tr. Left Patient sitting upright in bed with needs met and call light within reach. Objective Patient Orientation Person,Name,Age,Birthday,Year Right Upper Extremity Gross ROM WFL Left Upper Extremity Gross ROM WFL Bed Mobility bed mobility - supine/sit Assist Level Supervision/Stand by Transfer Training Sit/Stand/Pivot Transfer Assist Level Contact Guard/Hand Hold Chair Transfer Ability Contact Guard/Hand Hold Chair Transfer Technique Sit to/from Ambulatory Rehab OT IP prob,goals,plan Problems Date of Evaluation: 06/03/24 OT IP Problems Bed Mobility,Transfers,Balance ,Self care,Safety Rehab Potential Rehab Potential Good Equipment Needs Assistive Devices Rolling / Wheeled Walker Plan OT intervention Plan Bed Mobility,Transfers,Balance ,Self care,Safety,Therapeutic Exercise OT Plan Frequency Daily Duration LOS Discharge Goals Bed Mobility Ability Independent Sit to Stand Chair Transfer Ability Independent Chair Transfer Ability Supervision/Stand by Discharge Plan OT Discharge Plan Recommend patient to return home with services. Patient to continue OT services while here at [facility]. Eval Complexity Eval Charge Codes 47270 - Low Complexity PHYSICIAN CERTIFICATION: I certify the specified therapy services for Emy Colon are required, authorized, and reviewed every 30 days.
--- NOTE | 2024-06-03 14:17 | SW/DCPLANNER ---
Addendum entered by Kiara Gonzalez 06/05/24 12:16: Greta w/ [facility] stated that patient has been accepted for services. Addendum entered by Kiara Gonzalez 06/05/24 11:38: Patient information/order has been faxed to [facility]. Original Note: I spoke w/ this patient regarding plans once medically stable for discharge. PT/OT evaluated patient and recommended returning home w/ home health services and assistance from family. Patient stated that she resides at home w/ her sister and brother in law and she would need to ask them about home health. Patient was agreeable for me to contact her sister. Patient's sister is agreeable to home health services and does not have a preference for agency. I will set up home health services at time of discharge. Discharge date is unknown at this time.
--- NOTE | 2024-06-03 14:40 | HMH.PTEV ---
Physical Therapy Evaluation Rehab PT IP Evaluation Start: 06/03/24 11:12 Freq: ONCE Status: Active Protocol: Document 06/03/24 13:51 SHAILESH (Rec: 06/03/24 14:40 SHAILESH [id number]) Subjective/History History History This is the initial inpatient evaluation for Emy Colon, a 78 yof that was admitted for COPD. Patient complained of having issues with swallowing, breathing, and vomiting. This patient has a past medical history of peripheral vascular disease, renal cell carcinoma, chronic venous stasis, paroxysmal atrial fibrillation, tobacco dependence, and COPD. The patient also had a hysterectomy done October of 2022. Subjective Subjective The patient stated that she lives at home with her brother and her sister in law. Her sister in law is at the house with her at all times, but her brother does work. Patient stated I use both a cane and a rollator walker. Patient stated that she is able to walk and dress herself at home and helps her family to make meals. Patient lives in a two story home with a few steps to get into the house but her bedroom and the bathroom is on the first floor. New diagnosis of cancer in past 12 No months? Rehab PT IP Eval Objective Appearance Patient Behavior Appropriate,Cooperative Patient Orientation Person,Place,Birthday Speech Pattern Clear,Appropriate Ambulation Patient Able to Ambulate Yes Ambulation Observation IP General Gait Pattern Observation Narrow Based Gait Ambulation Distance (feet) 25 Ambulation Assistive Device Rolling Walker Ambulation Ability Contact Guard/Hand Hold Balance Ability to Arise Able, uses arms to help Sitting Balance Steady, safe Standing Balance Narrow stance w/o support Dynamic Sitting Balance Ability Normal Dynamic Standing Balance Ability Normal Transfers Bed Transfer Ability Contact Guard/Hand Hold Sit to Stand Bed Transfer Ability Contact Guard/Hand Hold Rehab PT IP prob,goals,plan Problems Date of Evaluation: 06/03/24 PT IP Problems Bed Mobility,Transfers,Gait Rehab Potential Rehab Potential Good Equipment Needs Assistive Devices Rolling / Wheeled Walker Plan PT Intervention Plan Bed Mobility,Transfers,Gait PT Plan Frequency Daily Duration LOS Discharge Goals Bed Transfer Ability Supervision/Stand by Sit to Stand Chair Transfer Ability Supervision/Stand by Ambulation Assistive Device Rolling Walker Ambulation Distance (feet) 40 Discharge Plan PT Discharge Plan It is most appropriate to discharge patient to home with home health. Skilled therapy is required to assist patient with ambulation and building more endurance. Eval Complexity Eval Charge Codes 17384 - High Complexity PHYSICIAN CERTIFICATION: I certify the specified therapy services for Emy Colon are required, authorized, and reviewed every 30 days.
[2024-06-03] MEDS: FUROSEMIDE 40MG/4ML VIAL 40 MG IV (15:09)
--- NOTE | 2024-06-03 16:03 | EXP.ACUTE.PN ---
Subjective *Date: 06/03/24 *Time: 16:03 Interval history: On 3 L oxygen this morning on rounds. No nausea or vomiting. States she is going home. Does not want to be placed. Grumpy this morning but cooperative. Afebrile. Medical Exam Vital signs and Labs for Last 24 Hours: Vital Signs Temp Pulse Pulse Resp BP BP Pulse Ox 06/03/24 13:00 06/03/24 12:00 90 06/03/24 11:59 98.4 F 89 21 127/84 92 L 06/03/24 11:50 06/03/24 11:20 77 06/03/24 11:20 82 06/03/24 11:00 06/03/24 09:00 06/03/24 08:00 06/03/24 08:00 100 H 06/03/24 08:00 97.5 F L 100 H 20 128/76 93 L 06/03/24 07:55 85 L 06/03/24 06:50 06/03/24 06:09 72 06/03/24 06:09 77 06/03/24 06:09 93 L 06/03/24 05:00 06/03/24 04:00 90 06/03/24 04:00 98.3 F 98 H 20 111/60 91 L 06/03/24 03:00 06/03/24 01:00 06/03/24 00:22 101 H 06/03/24 00:22 98 H 06/03/24 00:22 91 L 06/03/24 00:00 100 H 06/02/24 23:55 98.4 F 107 H 23 125/67 88 L 06/02/24 23:00 06/02/24 22:39 98.3 F 72 18 152/82 H 06/02/24 22:37 107 H 23 88 L 06/02/24 22:22 100 H 22 82 L 06/02/24 21:30 83 21 125/67 90 L 06/02/24 21:00 101 H 19 116/59 L 92 L 06/02/24 20:30 106 H 18 112/65 92 L 06/02/24 20:00 109 H 18 116/68 91 L 06/02/24 19:45 111 H 18 97/48 L 90 L 06/02/24 19:15 121 H 20 113/56 L 89 L 06/02/24 18:30 126 H 23 141/72 H 96 06/02/24 18:01 74 21 126/59 L 98 06/02/24 17:31 99 H 22 155/68 H 99 06/02/24 17:01 94 H 155/62 H 99 06/02/24 16:30 82 113/66 92 L O2 Del Method O2 Flow Rate 06/03/24 13:00 Nasal Cannula 3 06/03/24 12:00 06/03/24 11:59 Nasal Cannula 3 06/03/24 11:50 Nasal Cannula 06/03/24 11:20 06/03/24 11:20 06/03/24 11:00 Nasal Cannula 3 06/03/24 09:00 Nasal Cannula 3 06/03/24 08:00 Nasal Cannula 3 06/03/24 08:00 06/03/24 08:00 Nasal Cannula 3 06/03/24 07:55 Room Air 2.5 06/03/24 06:50 Nasal Cannula 3 06/03/24 06:09 06/03/24 06:09 06/03/24 06:09 Nasal Cannula 2.5 06/03/24 05:00 Nasal Cannula 2 06/03/24 04:00 06/03/24 04:00 Nasal Cannula 2 06/03/24 03:00 Nasal Cannula 2 06/03/24 01:00 Nasal Cannula 2 06/03/24 00:22 06/03/24 00:22 06/03/24 00:22 Nasal Cannula 2 06/03/24 00:00 06/02/24 23:55 Nasal Cannula 2 06/02/24 23:00 Nasal Cannula 2 06/02/24 22:39 Nasal Cannula 2 06/02/24 22:37 Nasal Cannula 2 06/02/24 22:22 Room Air 06/02/24 21:30 06/02/24 21:00 06/02/24 20:30 06/02/24 20:00 06/02/24 19:45 06/02/24 19:15 06/02/24 18:30 Room Air 06/02/24 18:01 06/02/24 17:31 Room Air 06/02/24 17:01 Room Air 06/02/24 16:30 Nasal Cannula 2 Intake and Output 06/03/24 06/03/24 06/03/24 07:59 15:59 23:59 Intake Total 150 / 510 360 / 510 Output Total 0 / 0 Balance 150 / 510 360 / 510 Intake: Intake, Oral Amount 150 / 510 360 / 510 Output: Output, Urine Amount 0 / 0 Other: Number of Voids 0 Number of Unmeasured Voids 1 Number of Bowel Movements 1 Weight 58.876 kg 58.87 kg Patient Weight 06/03/24 23:59 Weight 58.87 kg Laboratory Results - last 24 hr 06/02/24 16:04: WBC 9.8, RBC 4.61, Hgb 13.1, Hct 42.2, MCV 91.5, MCH 28.3, MCHC 30.9 L, RDW 14.4, Plt Count 399, MPV 9.4, Neut % (Auto) 74.2, Lymph % (Auto) 18.4, [place] % (Auto) 5.1, Eos % (Auto) 1.1, Baso % (Auto) 1.1, Neut # (Auto) 7.3, Lymph # (Auto) 1.8, [place] # (Auto) 0.5, Eos # (Auto) 0.1, Baso # (Auto) 0.1, Sodium 140, Potassium 2.5 L*, Chloride 106, Carbon Dioxide 27, Anion Gap 9.5, BUN 21 H, Creatinine 1.10 H, Estimated Creat Clear 39, Estimated GFR 48 L, Est GFR ( Amer) 58 L, Glucose 119 H, Calcium 8.4, Total Bilirubin 0.5, AST 23, ALT 15, Alkaline Phosphatase 106, Troponin I < 0.01, NT-Pro-B Natriuret Pep 601 H, Total Protein 7.0, Albumin 3.7, Globulin 3.3 H, Albumin/Globulin Ratio 1.1 06/02/24 16:29: VBG pH 7.43 H, VBG pCO2 38.6, VBG pO2 72.1 H, VBG HCO3 25.1, VBG Total CO2 26.3, VBG O2 Saturation 94.5 H, VBG Base Excess 0.8, VBG Lactic Acid 2.3 H 06/02/24 19:34: Troponin I < 0.01 06/02/24 20:30: Lactate 2.4 H 06/02/24 23:12: Lactate 5.1 H, Troponin I 0.02 06/02/24 23:50: SARS-CoV-2 (PCR) Not detected, Influenza A Untype (PCR) Not detected, Influenza Type B (PCR) Not detected 06/03/24 05:42: Sodium 141, Potassium 3.7 D, Chloride 113 H, Carbon Dioxide 25, Anion Gap 6.7, BUN 21 H, Creatinine 1.10 H, Estimated Creat Clear 40, Estimated GFR 48 L, Est GFR ( Amer) 58 L, Glucose 201 H D, Calcium 8.2 L, Magnesium 1.7, Procalcitonin 0.144 I & O for Labs for Last 24 Hours: Intake & Output 05/31/24 06/01/24 06/02/24 06/03/24 23:59 23:59 23:59 23:59 Intake Total 510 / 510 Output Total 0 / 0 Balance 510 / 510 Weight 57.47 kg 58.87 kg Constitutional: Present no acute distress, average body habitus, chronically ill appearing and cooperative Head: Present atraumatic and normocephalic ENT: Present normal exam Neck: Present normal inspection Respiratory: Present prolonged expiratory phase, rhonchi, wheezes (Faint end expiratory), crackles (Bilateral bases) and normal respiratory effort; Absent respiratory distress Cardiac: Present Reg Rate and Rhythm GI: Present soft and normal bowel sounds; Absent distention or tenderness Extremities: Present normal inspection and full ROM Skin: Present intact; Absent erythema Neuro: Present Grossly Intact, alert, awake and moves all extremities Assessment and Plan *Assessment and plan (1) Acute exacerbation of chronic obstructive pulmonary disease: Status: Acute Category: Medical Code(s): J44.1 - Chronic obstructive pulmonary disease with (acute) exacerbation (2) Tobacco dependence: Status: Acute Category: Medical Code(s): F17.200 - Nicotine dependence, unspecified, uncomplicated (3) JANKI (acute kidney injury): Status: Acute Category: Medical Code(s): N17.9 - Acute kidney failure, unspecified (4) Acute hypokalemia: Status: Acute Category: Medical Code(s): E87.6 - Hypokalemia (5) Paroxysmal atrial fibrillation: Status: Acute Category: Medical Code(s): I48.0 - Paroxysmal atrial fibrillation (6) Chronic venous stasis: Status: Acute Category: Medical Code(s): I87.8 - Other specified disorders of veins Plan This is a 78-year-old female that had difficulty swallowing with identified emesis and subsequent shortness of air. She has a chronic tobacco use history and previously identified COPD on no home oxygen. She is chronically anticoagulated for her atrial fibrillation. Her intake assessment identified chronic venous stasis with bilateral lower extremity wounds. Her ED evaluation identified acute kidney injury. Having increased oxygen requirement today. Afebrile and hemodynamically stable. Problems addressed as follows: Pneumonia with COPD acute exacerbation present on admission Aspiration pneumonitis Tobacco dependence Continue supplemental oxygen, goal sats greater 90%. Has been elevated to Ventimask, 40%. Wean as tolerated BNP elevated at 600, concern for component of CHF. Will diurese with Lasix 40 mg IV x 1. Holding IV fluids Continues ceftriaxone 1 g daily and doxycycline 100 mg twice daily. -Per my review of chest CT, bilateral pneumonia. Consolidation identified. PSI/port score of 96 due to age, female, CHF history, pulse greater than 125 on presentation, effusion on chest imaging/x-ray. Class IV risk. P.o. prednisone therapy 40mg daily Tobacco cessation education Nicotine replacement therapy -DuoNebs every 6 hours scheduled Acute kidney injury Hypokalemia Dehydration Baseline creatinine 0.8, remains elevated at 1.1 today, BUN 21. DC IV fluids. Potassium improved to 3.7. Repeat CBC, CMP, magnesium ordered for the morning Paroxysmal atrial fibrillation Telemetry monitoring ED ECG with atrial fibrillation controlled rate [id number] Continue Eliquis 5 mg twice daily, carvedilol 12.5 mg twice daily Chronic venous stasis Chronic leg wounds Wound care MRSA screening Full code Eliquis twice daily Mechanical soft after speech eval
--- NOTE | 2024-06-03 17:43 | PC.NURSE ---
AOX4, 40% VENTI MASK PLACE ON PT FOLLOWING FOLLOWING DE-SATURATION. O2 SAT 90% ON VENTI. 1L OUTPUT SO FAR FOLLOWING ADMIN OF DIURETICS. CRACKLES TO BILAT BASES. IV FLUIDS ON HOLD PER MD. ROMERO ON TELE.
--- NOTE | 2024-06-03 18:15 | XR_ITS ---
PROCEDURE INFORMATION: Exam: XR Chest Exam date and time: 06/03/2024 7:11 PM Age: 78 years old Clinical indication: Dyspnea; Additional info: Increased dyspnea TECHNIQUE: Imaging protocol: Radiologic exam of the chest. Views: 1 view. COMPARISON: 1. CT CHEST WO CON 06/02/2024 10:57 PM 2. CR XR CHEST PORTABLE 06/02/2024 4:33 PM FINDINGS: Lungs: Bibasilar lung opacities compatible with potential infiltrates noted on CT noted. Prominent interstitial markings are noted similar to the prior chest x-ray and CT. Lungs are otherwise clear. Pleural spaces: Unremarkable. No pleural effusion. No pneumothorax. Heart/Mediastinum: Cardiomegaly redemonstrated. Bones/joints: Unremarkable. IMPRESSION: 1. Cardiomegaly. 2. Bibasilar opacities compatible with the potential developing infiltrates similar to previous. 3. Interstitial prominence noted that might reflect mild superimposed interstitial edema in the proper clinical setting.
[2024-06-03 18:35] LABS: ABG Base Excess 3.3 mmol/L (-2.4-2.3); ABG HCO3 27.4 mmhg (22.0-26.0); ABG Oxygen Saturation 92 % (90-100); ABG PCO2 41.1 mmhg (35.0-45.0); ABG PH 7.44 mmol/L (7.35-7.45); ABG PO2 59.5 mmhg (80-100); ABG TCO2 28.7 mmhg (23-27)
[2024-06-03] MEDS: PANTOPRAZOLE 40MG TABLET 40 MG PO (20:21)
--- NOTE | 2024-06-03 21:36 | PC.NURSE ---
Stasis ulcers to bilat shins weeping and crusty. washed and telfa applied secured with kurlex.
--- NOTE | 2024-06-03 22:10 | PC.NURSE ---
patient converted out of A-Fib to Sinus Tachycardia, multifocal PVCs, and a 14 beat run of V-Tach. Dr Murray notified.
[2024-06-04] VITALS (18 sets, daily range): BP systolic 94–180; BP diastolic 60–115; PULSE 64–134; RESP 16–37; TEMP 36.3–37; O2SAT 70–99; BMI 24.7
--- NOTE | 2024-06-04 00:36 | PC.NURSE ---
Resp care note: Pt 87% on 12L 40% venti mask. Increased O2 to 15L 50%. Pt now satting 91%
--- NOTE | 2024-06-04 01:49 | PC.NURSE ---
Event Note: 0140: Bed alarm sounded so documenting RN went to bedside and found patient to be in respiratory distress. Patient had taken her Venturi mask off and stated she couldn't breath. Patient was 80% back on her venturi mask with increased work of breathing. Attending notified of this, [employer] Vanessa notified to come to bedside. Attending gives verbal order to start CPAP and give 40mg IVP Lasix. 0150: Attending arrives to bedside 0152: Attending at bedside still. Patient has already been placed on CPAP at 12 with 100% FiO2. Patient SpO2 from 70% to 85%. Patient is restless with mask on. 0153: Attending left bedside. Verbal orders to consult Pulm, Echo in AM, continue CPAP. Keep as medsurg for now.
--- NOTE | 2024-06-04 01:55 | CA_ITS ---
APPROVED REPORT EXAM: Comprehensive 2D, Doppler, and color-flow Echocardiogram Pneumatic Jack Operator: CASS Layton, RVS Ht: 5 ft 1 in Wt: 129lbs BSA: 1.57 BP: 152/82 mmHg Indications: HTN, COPD, SOB, Afib,CPAP, PVD, Renal cell CA, Murmur Echo Enhancing Agent Comments: Patient intolerant to touch/constant movement thoughout exam, near combative, limited windows 2D Dimensions IVSd 1.37 cm LVEF (Visual) 22.30 % PWd 1.26 cm LA Volume 134.20 mL LVDd 4.43 cm LA Volume Index 83.40 mL/m2 (M/F) 16-34 LVDs 3.98 cm EF AP4 33.10 % GL Strain -15.6 % M-Mode Dimensions LA Diam 4.47 cm (1.9-4.0) EPSs 1.94 cm TAPSE 1.18 (<1.7) LV Diastology E Decel Time 277 (160-240 msec) E/A Ratio 0.92 MED A' 12.40 cm/s LAT A' 5.40 cm/s Aortic Valve AoV Peak Joselito. 161.0 (50-130 cm/s) AI PHT 393.00 ms AO Peak GR. 10.40 mmHg AO Mean GR. 5.80 (<5 mmHg) AO VTI 28.7 (18-25 cm) Mitral Valve MV A Velocity 143.0 (40-130 cm/s) E/A Ratio 0.92 MV Mean Gr. 4.80 (<2mmHg) Pulmonary Valve PV Peak Velocity 51.0 (50-150 cm/s) Tricuspid Valve TR P. Velocity 236.00 cm/s RAP Estimate 10.00 mmHg RVSP 32.40 mmHg Left Ventricle The left ventricle is normal size. The left ventricular systolic function is normal. The left ventricular ejection fraction is within the normal range. There is marked increase in LV wall thickness. Proximal septal thickening is noted. No evidence of LV OT obstruction at rest. There is normal LV segmental wall motion. Grade 2 diastolic dysfunction is present. LVEF is 55%. Right Ventricle Right ventricle is moderately dilated. Right ventricle is moderately hypokinetic. Atria Left atrium is severely dilated. The right atrium size is normal. There is no Doppler evidence of interatrial shunt. Aortic Valve The aortic valve leaflets are mildly thickened. Mild to moderate aortic stenosis is present. FRANCINE by continuity equation is 1.4 cm???. DI is 0.48. The peak velocity and transaortic gradients are low in the setting of borderline LV stroke-volume. Moderate aortic regurgitation. Mitral Valve Severe mitral annular calcification. The MV leaflets are calcified. Mean MV gradient 6 mmHg (HR 92 bpm). MVA by PHT is 2.2 cm???. Findings are suggestive of mild mitral stenosis. Moderate mitral regurgitation. The MR jet is centrally directed. Tricuspid Valve The tricuspid valve leaflets are thin and pliable. Mild tricuspid regurgitation. RVSP is 25 mmHg + RA pressure. Pulmonic Valve The pulmonary valve is normal in structure. Trace pulmonic regurgitation. Great Vessels The aortic root is normal in size. The IVC is not well-visualized. Pericardium There is no pericardial effusion. Other Information Study Quality: Technically Difficult Conclusion Technically difficult study due to poor acoustic windows. Normal LV systolic function. There is marked increase in LV wall thickness. Proximal septal thickening is noted. Grade 2 diastolic dysfunction is present. Moderate RV dilation with moderate reduction in RV function. Severe LA dilation. Mild to moderate (FRANCINE by continuity equation is 1.4 cm???. DI is 0.48. The peak velocity and transaortic gradients are low in the setting of borderline LV stroke-volume). Moderate AI. Severe MAC with calcified MV leaflets. Mild MS (Mean MV gradient 6 mmHg (HR 92 bpm). MVA by PHT is 2.2 cm???). Moderate MR. Mild tricuspid regurgitation. RVSP is 25 mmHg + RA pressure. Electronically signed by : Pauline Jerez MD 06/04/2024 12:12:33
[2024-06-04] MEDS: FUROSEMIDE 40MG/4ML VIAL 40 MG IV (01:59)
[2024-06-04] MEDS: ONDANSETRON 4MG/2ML VIAL 4 MG IV (01:59)
[2024-06-04] MEDS: LORazepam 2MG/ML VIAL 0.5 MG IV (02:10)
--- NOTE | 2024-06-04 02:11 | PC.NURSE ---
Attending back to bedside at 0200 with verbal order to give Ativan 0.5mg q4p for anxiety
--- NOTE | 2024-06-04 02:48 | PC.NURSE ---
Patient is tolerating CPAP after being medicated per MAR. CPAP will continue through the night until AM when patient awakes per Attending. Handoff report to primary RN from documenting RN
--- NOTE | 2024-06-04 03:36 | PC.NURSE ---
Spoke to [employer] Vanessa who reports patient has been turned up to CPAP 14 with 100% FiO2. Patient is tolerating well
--- NOTE | 2024-06-04 03:40 | PC.NURSE ---
RESP CARE NOTE: Pt CPAP settings were changed from an FiO2 of 100% to a FiO2 of 80% with sats ranging from 92%-95%
[2024-06-04] MEDS: CEFTRIAXONE SODIUM 1 GM in 0.9 % SODIUM CHLORIDE 50 ML IV (05:31)
[2024-06-04] MEDS: BUDESONIDE 0.5MG/2ML NEB 0.5 MG IH ×2 (05:59→18:10)
[2024-06-04] MEDS: IPRATROPIUM/ALBUTEROL 3 ML NEB IH ×3 (05:59→18:10)
--- NOTE | 2024-06-04 06:00 | XR_ITS ---
FINAL REPORT CLINICAL HISTORY: Shortness of breath COMPARISON: 07/19/2022 FINDINGS: The heart size is normal. The mediastinum is normal. Patchy airspace opacity in the perihilar regions, right greater than left, is probably due to acute pneumonia. There are no pleural effusions. There is no pneumothorax. There is no osseous abnormality. IMPRESSION: Probable acute pneumonia. Follow-up recommended. Reviewed, Interpreted and Dictated by Tonny Clemente MD Transcribed by Michelle Kline Authenticated and . [facility]
[2024-06-04 06:20] LABS: Basophils % 0.2 % (0.1-2.0); Eosinophils # 0.1 K/mm3 (0.0-0.4); Eosinophils % 0.3 % (0.1-12.0); Hematocrit 39.9 % (37.0-47.0); Hemoglobin 12.6 g/dL (12.2-16.2); Lymphocytes # 1.2 K/mm3 (0.7-4.5); Mean Corpuscular HGB Conc 31.5 g/dL (31.8-35.4); Mean Corpuscular Hemoglobin 29.5 pg (27.0-31.2); Mean Corpuscular Volume 93.7 fl (81-99); Mean Platelet Volume 9.6 fl (7.4-10.4); Monocytes # 0.9 K/mm3 (0.1-1.0); Monocytes % 4.9 % (1.7-9.3); Neutrophils % 88.6 % (37.0-80.0); Platelet Count 356 K/mm3 (142-424); Red Blood Count 4.26 M/mm3 (4.20-5.40); Red Cell Distribution Width 14.3 % (11.5-17.5); White Blood Count 19.2 K/mm3 (4.8-10.8)
[2024-06-04 06:28] LABS: MANUAL DIFFERENTIAL MANUAL DIFFERENTIAL (MANUAL DIFF)
[2024-06-04 06:29] LABS: Albumin Level 3.3 g/dl (3.5-5.0); Chloride 108 mmol/L (98-107); Potassium 3.7 mmoL/L (3.5-5.1); Sodium 143 mmol/L (136-145)
[2024-06-04 06:32] LABS: Alanine Aminotransferase 30 U/L (12-78); Alkaline Phosphatase 91 U/L (38-126); Anion Gap 8.7 mEq/L (5-15); Aspartate Amino Transferase 51 U/L (14-36); Bilirubin,Total 0.5 mg/dl (0.2-1.3); Blood Urea Nitrogen 34 mg/dl (7-17); Calcium 8.5 mg/dl (8.4-10.2); Carbon Dioxide 30 mmol/L (22.0-30.0); Creatinine Clearance Estimated 32 mL/min (50-200); Estimated Glomerular Filt Rate 37 ml/min (>60); GFR (African American) 44 ML/MIN (>60); Globulin 3.2 g/dL (1.3-3.2); Glucose 84 mg/dl (74-100); Magnesium 1.9 mg/dl (1.6-2.3); Total Protein,Serum 6.5 g/dl (6.3-8.2)
[2024-06-04] MEDS: DOXYCYCLINE HYCL 100 MG TABLET PO ×2 (09:18→20:02)
[2024-06-04] MEDS: CARVEDILOL 12.5MG TABLET 12.5 MG PO ×2 (09:18→20:02)
[2024-06-04] MEDS: predniSONE 20MG TAB 40 MG PO (09:18)
[2024-06-04] MEDS: APIXABAN 5MG TABLET 5 MG PO ×2 (09:18→20:02)
--- NOTE | 2024-06-04 09:49 | P.CONS_ITS ---
History of Present Illness History of present illness: Ms. Colon is a 78-year-old female with reported history of greater than 92-lwlt-lsuj smoking history presented to the ER complaining of episode of choking vomiting along with respiratory distress. Patient denies any use of inhaler therapy at baseline. Admits using oxygen supplementation. Admits gradually worsening respiratory distress [facility] Disclaimer: The information contained in this section may have been updated after the patient was seen, as this information can be updated by other users. Medical History (Updated 06/04/24 @ 11:23 by Timbo Marte MD) Acute and chronic respiratory failure with hypoxia Peripheral vascular disease Renal cell carcinoma Chronic venous stasis Paroxysmal atrial fibrillation Tobacco dependence COPD (chronic obstructive pulmonary disease) Surgical History History of hysterectomy Family History Other Family history of COPD (chronic obstructive pulmonary disease) Family history of arthritis Family history of cancer Family history of hypothyroidism Social History (Updated 06/03/24 @ 00:06 by Joanne Pinzon RN) Smoking Status: Current every day smoker tobacco type: cigarettes packs per day: 40 years smoked: 50 alcohol intake: never substance use type: denies use current occupational status: retired Travel in the last 8 weeks: Inside the [place] household members: family housing: house caffeine: Yes Review of Systems Constitutional Constitutional: Reports fatigue and Reports weakness Eyes Eyes: Denies eye discharge, Denies dry eyes, Denies irritation and Denies itchy eyes ENT Ears, Nose, Mouth, and Throat: Denies epistaxis, Denies facial pain, Denies lip swelling and Denies throat swelling *Cardiovascular Cardiovascular: Reports dyspnea and Reports dyspnea on exertion *Respiratory Respiratory: Denies change in phlegm color, Reports chest congestion, Reports cough, Reports dyspnea, Reports dyspnea on exertion, Reports excessive phlegm production, Denies hemoptysis, Denies pain on inspiration, Denies pain with cough and Denies wheezing *Gastrointestinal Gastrointestinal: Denies abdominal pain, Denies belching and Denies cramping *Musculoskeletal Musculoskeletal: Reports back pain, Reports myalgias and Reports other (No small joint swelling or Pain) *Neurologic Neurologic: Reports weakness Psychiatric Psychiatric: Denies homicidal ideation and Denies suicidal ideation Endocrine Endocrine: Reports fatigue and Denies heat intolerance Hematologic/Lymphatic Hematologic/Lymphatic: Denies easy bleeding and Denies lymphadenopathy Allergic/Immunologic Allergic/Immunologic: Denies itchy eyes, Denies lip swelling, Denies throat swelling and Denies wheezing Pulmonology Exam Inpatient Vital signs and Labs for Last 24 Hours: Temp Pulse Resp BP Pulse Ox O2 Del Method O2 Flow Rate 98.3 F 100 H 20 126/70 98 BiPAP 14 06/04/24 07:57 06/04/24 08:00 06/04/24 07:57 06/04/24 07:57 06/04/24 07:57 06/04/24 07:57 06/04/24 06:31 FiO2 80 06/04/24 05:59 Laboratory Results - last 24 hr 06/03/24 05:42: Procalcitonin 0.144 06/03/24 18:18: ABG pH 7.44, ABG pCO2 41.1, ABG pO2 59.5 L, ABG HCO3 27.4 H, ABG Total CO2 28.7 H, ABG O2 Saturation 92, ABG Base Excess 3.3 H 06/04/24 05:36: WBC 19.2 H D, RBC 4.26, Hgb 12.6, Hct 39.9, MCV 93.7, MCH 29.5, MCHC 31.5 L, RDW 14.3, Plt Count 356, MPV 9.6, Neut % (Auto) 88.6 H, Lymph % (Auto) 6.0 L, [place] % (Auto) 4.9, Eos % (Auto) 0.3, Baso % (Auto) 0.2, Neut # (Auto) 17.0 H, Lymph # (Auto) 1.2, [place] # (Auto) 0.9, Eos # (Auto) 0.1, Baso # (Auto) 0.0, Sodium 143, Potassium 3.7, Chloride 108 H, Carbon Dioxide 30, Anion Gap 8.7, BUN 34 H D, Creatinine 1.40 H D, Estimated Creat Clear 32, Estimated GFR 37 L, Est GFR ( Amer) 44 L D, Glucose 84 D, Calcium 8.5, Magnesium 1.9 D, Total Bilirubin 0.5, AST 51 H D, ALT 30 D, Alkaline Phosphatase 91, Total Protein 6.5, Albumin 3.3 L, Globulin 3.2, Albumin/Globulin Ratio 1.0 L I & O for Labs for Last 24 Hours: Intake & Output 06/01/24 06/02/24 06/03/24 06/04/24 23:59 23:59 23:59 23:59 Intake Total 1450 / 1450 50 / 50 Output Total 1850 / 1850 500 / 500 Balance -400 / -400 -450 / -450 Weight 126 lb 11.2 oz 129 lb 12.578 oz 131 lb Microbiology Reports for the Last 24 Hours: Microbiology 06/02/24 17:02 Blood Blood Culture - Preliminary NO GROWTH AFTER 24 HOURS 06/02/24 17:02 Blood Blood Culture - Preliminary NO GROWTH AFTER 24 HOURS Constitutional: Present moderate distress Head: Present normocephalic and atraumatic ENT: Present normal exam, normal oropharynx and mucous membranes moist Neck: Present normal inspection and full ROM Respiratory: Present respiratory distress and able to speak in complete sentences; Absent prolonged expiratory phase or wheezes Cardiac: Present S1/S2, Tachycardia and radial pulses present GI: Present soft and distention; Absent tenderness or guarding Rectal (female): Present deferred (female): Present deferred Skin: Present intact; Absent cyanosis or jaundice Neuro: Present alert, awake and oriented x 3 Extremities: Present normal inspection; Absent clubbing or cyanosis Psychiatric: Present normal affect and cooperative Meds Home Medications and Allergies Home Medications ?Medication ?Instructions ?Recorded ?Confirmed ?Type pantoprazole 40 mg tablet,delayed 40 mg PO HS 07/13/21 06/03/24 History release ondansetron 4 mg disintegrating 4 mg PO Q6H PRN nausea and 06/02/24 Rx tablet vomiting #10 tabs amlodipine 2.5 mg tablet 2.5 mg PO DAILY 06/03/24 06/03/24 History furosemide 40 mg tablet 40 mg PO DAILY 06/03/24 06/03/24 History potassium chloride 10 mEq 10 meq PO DAILY 06/03/24 06/03/24 History tablet,extended release sucralfate 1 gram tablet 1 g PO BID 06/03/24 06/03/24 History New Prescriptions to Start Prescriptions: ondansetron Doming[place] Wolff Allergies Allergy/AdvReac Type Severity Reaction Status Date / Time Penicillins Allergy Mild Verified 08/01/21 11:49 Results Laboratory Findings 06/04/24 05:36 06/04/24 05:36 ABG ABG pH 7.44 mmol/L (7.35-7.45) 06/03/24 18:18 ABG pCO2 41.1 mmhg (35.0-45.0) 06/03/24 18:18 ABG pO2 59.5 mmhg (80-100) L 06/03/24 18:18 ABG O2 Saturation 92 % (90-100) 06/03/24 18:18 Abnormal lab findings: Abnormal Labs 06/02/24 06/02/24 06/02/24 16:04 16:29 20:30 WBC MCHC 30.9 L Neut % (Auto) Lymph % (Auto) Neut # (Auto) ABG pO2 ABG HCO3 ABG Total CO2 ABG Base Excess VBG pH 7.43 H VBG pO2 72.1 H VBG O2 Saturation 94.5 H VBG Lactic Acid 2.3 H Potassium 2.5 L* Chloride BUN 21 H Creatinine 1.10 H Estimated GFR 48 L Est GFR ( Amer) 58 L Glucose 119 H Lactate 2.4 H Calcium AST NT-Pro-B Natriuret Pep 601 H Albumin Globulin 3.3 H Albumin/Globulin Ratio 06/02/24 06/03/24 06/03/24 23:12 05:42 18:18 WBC MCHC Neut % (Auto) Lymph % (Auto) Neut # (Auto) ABG pO2 59.5 L ABG HCO3 27.4 H ABG Total CO2 28.7 H ABG Base Excess 3.3 H VBG pH VBG pO2 VBG O2 Saturation VBG Lactic Acid Potassium Chloride 113 H BUN 21 H Creatinine 1.10 H Estimated GFR 48 L Est GFR ( Amer) 58 L Glucose 201 H D Lactate 5.1 H Calcium 8.2 L AST NT-Pro-B Natriuret Pep Albumin Globulin Albumin/Globulin Ratio 06/04/24 05:36 WBC 19.2 H D MCHC 31.5 L Neut % (Auto) 88.6 H Lymph % (Auto) 6.0 L Neut # (Auto) 17.0 H ABG pO2 ABG HCO3 ABG Total CO2 ABG Base Excess VBG pH VBG pO2 VBG O2 Saturation VBG Lactic Acid Potassium Chloride 108 H BUN 34 H D Creatinine 1.40 H D Estimated GFR 37 L Est GFR ( Amer) 44 L D Glucose Lactate Calcium AST 51 H D NT-Pro-B Natriuret Pep Albumin 3.3 L Globulin Albumin/Globulin Ratio 1.0 L Assessment and Plan *Assessment and plan (1) Pneumonia: Status: Acute Category: Medical Code(s): J18.9 - Pneumonia, unspecified organism (2) Acute and chronic respiratory failure with hypoxia: Status: Acute Category: Medical Code(s): J96.21 - Acute and chronic respiratory failure with hypoxia Plan Ms. Colon is a 78-year-old female with reported history of greater than 31-ivti-nena smoking history presented to the ER complaining of episode of choking vomiting along with respiratory distress. Patient denies any use of inhaler therapy at baseline. Admits using oxygen supplementation. Admits gradually worsening respiratory distress Afebrile. Neutrophilic prominent leukocytosis. Venous and arterial blood gas upon admission did not show any evidence of hypercarbic respiratory failure. CT chest without contrast upon admission with significant emphysematous changes noted. Bilateral lower lobe consolidative changes left greater than right along with small right pleural effusion and adjacent atelectasis noted. Patient noted to have worsening respiratory since admission with escalation of the left upper extremity mask to CPAP therapy overnight. Weaned to 4 L this morning. Auscultation no significant wheezing noted Plan: Continue oxygen supplementation to maintain O2 saturation goal of 90 to 95%. Wean as tolerated. Follow with lower extremity venous Doppler Continue DuoNebs every 6 hours along with Pulmicort every 12 scheduled Incentive spirometry and flutter valve Continue ceftriaxone and doxycycline pending culture results # Thank you for involving pulmonary in this patient care. Will continue to follow.
--- NOTE | 2024-06-04 10:06 | HMH.PTWOUND ---
Rehab Inpt Wound Evaluation Rehab IP Wound Evaluation Start: 06/03/24 16:10 Freq: ONCE Status: Active Protocol: Document 06/04/24 09:54 SHAILESH (Rec: 06/04/24 10:06 SHAILESH [id number]) Rehab PT Wound Assessment Subjective Subjective This is the initial inpatient evaluation for Emy Colon, a 78 yof that was admitted for COPD. Patient complained of having issues with swallowing, breathing, and vomiting. This patient has a past medical history of peripheral vascular disease, renal cell carcinoma, chronic venous stasis, paroxysmal atrial fibrillation, tobacco dependence, and COPD. The patient also had a hysterectomy done October of 2022. She also presents with B lower legs wounds upon admission, likely due to CVI. Wound Right [place] Wound Type Stasis Ulcer Is This a Chronic Wound Yes Wound Length (cm) 4.0 Wound Width (cm) 4.0 Wound Depth (cm) 0.1 Wound Bed Appearance [place] Wound Margins Description Well Defined Surrounding Tissue Appearance Dark Red,Purple Wound Drainage Description Serous Drainage Amount Small Wound Topical Solution/Irrigant Saline Irrigant Primary Dressing Composite Comment bordered foam Wound Debridement Method Gauze,Mechanical Wound Debridement Amount of Tissue Minimal Removed Dressing Change Patient Tolerance Tolerated Well Left [place] Wound Type Stasis Ulcer Is This a Chronic Wound Yes Wound Length (cm) 9.0 Wound Width (cm) 6.0 Wound Depth (cm) 0.1 Wound Bed Appearance [place] Wound Margins Description Well Defined Surrounding Tissue Appearance Dark Red,Purple Wound Drainage Description Serous Drainage Amount Small Wound Topical Solution/Irrigant Saline Irrigant Primary Dressing Composite Comment bordered foam Wound Debridement Method Gauze,Mechanical Wound Debridement Amount of Tissue Minimal Removed Dressing Change Patient Tolerance Tolerated Well Plan/Recommendation Comment Dressing changes to continue per nsg as above, or with appropriate non-adherent dressing as needed. No sharp selective debridement is necessary at this time. Eval Complexity Eval Charge Codes 55301 - High Complexity PHYSICIAN CERTIFICATION: I certify the specified therapy services for Emy Colon are required, authorized, and reviewed every 30 days.
--- NOTE | 2024-06-04 10:14 | EXP.CARD.CON ---
History of Present Illness History of Present Illness Consult date: 06/04/24 Chief complaint: vomiting History of present illness: This is a 78-year-old female with past medical hx of COPD and afib on OAC that presented to [facility] emergency department for evaluation of choking, vomiting and trouble breathing. She describes a chronic tobacco use history (1 pack/day greater than 50 years) with no home oxygen. She reports choking on food with subsequent emesis. She was evaluated and found to be hypoxemic in the ED and required oxygen supplementation to maintain appropriate oxygen saturations. She was hypokalemic with acute kidney injury (baseline creatinine 0.8) on admission. Since hospital admission patient has had increased oxygen requirement. Repeat chest xray today shows probable acute pneumonia. Cardiology was asked to consult for possible calcified lesion noted on prelim echo read. This morning patient denies complaints. [facility] Disclaimer: The information contained in this section may have been updated after the patient was seen, as this information can be updated by other users. Medical History (Updated 06/04/24 @ 10:25 by Cherelle Moses APRN) Peripheral vascular disease Renal cell carcinoma Chronic venous stasis Paroxysmal atrial fibrillation Tobacco dependence COPD (chronic obstructive pulmonary disease) Surgical History History of hysterectomy Family History Other Family history of COPD (chronic obstructive pulmonary disease) Family history of arthritis Family history of cancer Family history of hypothyroidism Social History (Updated 06/03/24 @ 00:06 by Joanne Pinzon RN) Smoking Status: Current every day smoker tobacco type: cigarettes packs per day: 40 years smoked: 50 alcohol intake: never substance use type: denies use current occupational status: retired Travel in the last 8 weeks: Inside the [place] household members: family housing: house caffeine: Yes Review of Systems Constitutional Constitutional: Reports weakness *Cardiovascular Cardiovascular: Reports dyspnea *Respiratory Respiratory: Reports dyspnea *Neurologic Neurologic: Reports weakness Exam Data for Last 24 hours Vital signs and Labs for Last 24 Hours: Temp Pulse Resp BP Pulse Ox O2 Del Method O2 Flow Rate 98.3 F 100 H 20 126/70 98 BiPAP 14 06/04/24 07:57 06/04/24 08:00 06/04/24 07:57 06/04/24 07:57 06/04/24 07:57 06/04/24 07:57 06/04/24 06:31 FiO2 80 06/04/24 05:59 Laboratory Results - last 24 hr 06/03/24 05:42: Procalcitonin 0.144 06/03/24 18:18: ABG pH 7.44, ABG pCO2 41.1, ABG pO2 59.5 L, ABG HCO3 27.4 H, ABG Total CO2 28.7 H, ABG O2 Saturation 92, ABG Base Excess 3.3 H 06/04/24 05:36: WBC 19.2 H D, RBC 4.26, Hgb 12.6, Hct 39.9, MCV 93.7, MCH 29.5, MCHC 31.5 L, RDW 14.3, Plt Count 356, MPV 9.6, Neut % (Auto) 88.6 H, Lymph % (Auto) 6.0 L, [place] % (Auto) 4.9, Eos % (Auto) 0.3, Baso % (Auto) 0.2, Neut # (Auto) 17.0 H, Lymph # (Auto) 1.2, [place] # (Auto) 0.9, Eos # (Auto) 0.1, Baso # (Auto) 0.0, Sodium 143, Potassium 3.7, Chloride 108 H, Carbon Dioxide 30, Anion Gap 8.7, BUN 34 H D, Creatinine 1.40 H D, Estimated Creat Clear 32, Estimated GFR 37 L, Est GFR ( Amer) 44 L D, Glucose 84 D, Calcium 8.5, Magnesium 1.9 D, Total Bilirubin 0.5, AST 51 H D, ALT 30 D, Alkaline Phosphatase 91, Total Protein 6.5, Albumin 3.3 L, Globulin 3.2, Albumin/Globulin Ratio 1.0 L I & O for Last 24 hours: Intake & Output 06/01/24 06/02/24 06/03/24 06/04/24 23:59 23:59 23:59 23:59 Intake Total 1450 / 1450 50 / 50 Output Total 1850 / 1850 500 / 500 Balance -400 / -400 -450 / -450 Weight 126 lb 11.2 oz 129 lb 12.578 oz 131 lb Microbiology Reports for the Last 24 Hours: Microbiology 06/02/24 17:02 Blood Blood Culture - Preliminary NO GROWTH AFTER 24 HOURS 06/02/24 17:02 Blood Blood Culture - Preliminary NO GROWTH AFTER 24 HOURS Constitutional Constitutional: no acute distress *Routine Respiratory Exam Respiratory: Present CTA bilaterally and symmetric chest movement *Routine Cardiovascular Exam Cardiovascular: Present Normal S1, Normal S2 and irregular rhythm *Routine Abdominal Exam Abdominal: Present soft and normoactive bowel sounds; Absent tenderness *Routine Extremities Exam Extremities: Present full ROM and normal capillary refill; Absent edema *Routine Skin Exam Skin: Present intact, dry and warm Detailed Neck Exam: Thyroids Thyroid: Absent bruit Meds Home Medications and Allergies Home Medications ?Medication ?Instructions ?Recorded ?Confirmed ?Type pantoprazole 40 mg tablet,delayed 40 mg PO HS 07/13/21 06/03/24 History release ondansetron 4 mg disintegrating 4 mg PO Q6H PRN nausea and 06/02/24 Rx tablet vomiting #10 tabs amlodipine 2.5 mg tablet 2.5 mg PO DAILY 06/03/24 06/03/24 History furosemide 40 mg tablet 40 mg PO DAILY 06/03/24 06/03/24 History potassium chloride 10 mEq 10 meq PO DAILY 06/03/24 06/03/24 History tablet,extended release sucralfate 1 gram tablet 1 g PO BID 06/03/24 06/03/24 History New Prescriptions to Start Prescriptions: ondansetron [place]ing[place] Wolff Allergies Allergy/AdvReac Type Severity Reaction Status Date / Time Penicillins Allergy Mild Verified 08/01/21 11:49 Assessment and Plan *Assessment and plan (1) Hypoxia: Status: Acute Category: Medical Code(s): R09.02 - Hypoxemia (2) Pneumonia: Status: Acute Category: Medical Code(s): J18.9 - Pneumonia, unspecified organism (3) Chronic a-fib: Status: Acute Category: Medical Code(s): I48.20 - Chronic atrial fibrillation, unspecified (4) JANKI (acute kidney injury): Status: Acute Category: Medical Code(s): N17.9 - Acute kidney failure, unspecified Plan Acute pneumonia Aspiration COPD exacerbation Tobacco dependence HFpEF Chest x-ray from today shows likely pneumonia Pulmonology is consulted-will defer Preliminary echo shows calcified MV leaflets with mild to moderate MS and moderate MR, Normal EF Start lasix 40mg po daily and jardiance 10mg po daily Acute kidney injury Hypokalemia Potassium on admission 2.5 trending up to 3.7 Creatinine 1.4 Chronic A-fib Rate controlled Continue Coreg 12.5 mg p.o. twice daily Continue Eliquis 5 mg p.o. daily CV summary 06/04/2024: Normal EF. Calcified leaflets noted on prelim echo. Start Lasix 40mg po daily. Cardiac meds Eliquis 5 mg p.o. twice daily Coreg 12.5 mg p.o. twice daily Lasix 40mg po daily Start jardiance 10mg po daily
--- NOTE | 2024-06-04 10:29 | CA_ITS ---
FINAL REPORT TECHNIQUE: Bilateral lower extremity venous duplex was performed with augmentation and compression. CLINICAL HISTORY: Bilateral lower extremity swelling FINDINGS: Proper flow is seen throughout the deep venous systems bilaterally. There is no evidence of deep venous thrombosis. IMPRESSION: No evidence of deep venous thrombosis. Reviewed, Interpreted and Dictated by Tonny Clemente MD Transcribed by Snow Mcadams Authenticated and [facility]
[2024-06-04 11:13] LABS: Lymphocytes % 9 % (10-50); Monocytes % 3 % (2-9); Neutrophils % 88 % (42-76); Total Cells Counted 100
[2024-06-04 11:14] LABS: Platelet Estimate Normal; RBC Morphology Normal
--- NOTE | 2024-06-04 11:26 | PC.NURSE ---
steward/stewardess deck called to inform this RN that this pt's o2 sat was 88%. hospitalist made aware and stated he was fien with o2 sat as long as it stayed above 88%. pt is currently on 4L nc. no new orders. call light within reach.
[2024-06-04] MEDS: FUROSEMIDE 40 MG TABLET PO (12:23)
[2024-06-04] MEDS: EMPAGLIFLOZIN 10MG TABLET 10 MG PO (12:23)
--- NOTE | 2024-06-04 12:54 | EXP.ACUTE.PN ---
Subjective *Date: 06/04/24 *Time: 16:08 Interval history: Increased respiratory distress overnight. Required CPAP overnight. Back to nasal cannula oxygen this morning but necessitating 4 L. Patient is afebrile. White count elevated today. Patient irritable and questioning why she is not going home today. Appears to have poor insight to her medical condition and admission necessity. Denies nausea, vomiting, chest pain. States she feels fine and not sick. Again reports she does not wear oxygen at home however. Medical Exam Vital signs and Labs for Last 24 Hours: Vital Signs Temp Pulse Pulse Resp BP Pulse Ox O2 Del Method 06/04/24 12:39 Nasal Cannula 06/04/24 11:54 87 06/04/24 11:54 90 06/04/24 11:54 90 L Nasal Cannula 06/04/24 11:25 98.3 F 87 20 98/60 L 92 L Nasal Cannula 06/04/24 10:39 Nasal Cannula 06/04/24 09:00 Nasal Cannula 06/04/24 08:00 Nasal Cannula 06/04/24 08:00 100 H 06/04/24 07:57 98.3 F 97 H 20 126/70 98 BiPAP 06/04/24 06:31 CPAP 06/04/24 05:59 92 H 06/04/24 05:59 89 06/04/24 05:59 99 CPAP 06/04/24 05:00 CPAP 06/04/24 04:00 97.4 F L 96 H 18 119/60 96 CPAP 06/04/24 04:00 86 06/04/24 03:00 CPAP 06/04/24 02:17 124 H 33 H 180/115 H 93 L CPAP 06/04/24 02:11 130 H 37 H 93 L CPAP 06/04/24 02:02 133 H 35 H 90 L CPAP 06/04/24 01:57 134 H 30 H 90 L CPAP 06/04/24 01:42 122 H 36 H 70 L Venturi Mask 06/04/24 01:00 Venturi Mask 06/04/24 00:00 98.0 F 99 H 16 147/84 H 91 L Non-Rebreather 06/04/24 00:00 98 H 06/03/24 23:45 93 H 06/03/24 23:45 96 H 06/03/24 22:52 Venturi Mask 06/03/24 21:00 Venturi Mask 06/03/24 20:00 97.5 F L 98 H 22 154/75 H 93 L Non-Rebreather 06/03/24 19:46 98 H 06/03/24 19:35 92 L Venturi Mask 06/03/24 18:49 100 H 06/03/24 18:49 102 H 06/03/24 18:49 92 L Venturi Mask 06/03/24 18:42 Venturi Mask 06/03/24 17:00 Venturi Mask 06/03/24 16:00 100 H 06/03/24 16:00 97.4 F L 94 H 20 153/67 H 91 L Venturi Mask 06/03/24 15:00 Venturi Mask 06/03/24 13:00 Nasal Cannula O2 Flow Rate FiO2 06/04/24 12:39 4 06/04/24 11:54 06/04/24 11:54 06/04/24 11:54 4 06/04/24 11:25 06/04/24 10:39 4 06/04/24 09:00 4 06/04/24 08:00 4 06/04/24 08:00 06/04/24 07:57 06/04/24 06:31 14 06/04/24 05:59 06/04/24 05:59 06/04/24 05:59 80 06/04/24 05:00 14 06/04/24 04:00 06/04/24 04:00 06/04/24 03:00 14 06/04/24 02:17 100 06/04/24 02:11 100 06/04/24 02:02 100 06/04/24 01:57 100 06/04/24 01:42 15 50 06/04/24 01:00 15 06/04/24 00:00 9 06/04/24 00:00 06/03/24 23:45 06/03/24 23:45 06/03/24 22:52 9 06/03/24 21:00 9 06/03/24 20:00 9 06/03/24 19:46 06/03/24 19:35 9 35 06/03/24 18:49 06/03/24 18:49 06/03/24 18:49 12 40 06/03/24 18:42 9 06/03/24 17:00 9 06/03/24 16:00 06/03/24 16:00 12 06/03/24 15:00 12 06/03/24 13:00 3 Intake and Output 06/03/24 06/04/24 06/04/24 23:59 07:59 15:59 Intake Total 580 / 1450 50 / 530 480 / 530 Output Total 850 / 1850 500 / 500 0 / 500 Balance -270 / -400 -450 / 30 480 / 30 Intake: Intake, Oral Amount 580 / 1450 480 / 480 Intake, Total IV Amount 50 / 50 Ceftriaxone Sodium 1 gm In 0.9 50 / 50 % Sodium Chloride 50 ml @ 100 mls/hr IV Q24H [facility] Rx#:[id number] Output: Output, Urine Amount 850 / 1850 500 / 500 0 / 500 Other: Number of Voids 1 Number of Unmeasured Voids 1 1 1 Weight 59.421 kg Patient Weight 06/04/24 23:59 Weight 59.421 kg Laboratory Results - last 24 hr 06/03/24 05:42: Procalcitonin 0.144 06/03/24 18:18: ABG pH 7.44, ABG pCO2 41.1, ABG pO2 59.5 L, ABG HCO3 27.4 H, ABG Total CO2 28.7 H, ABG O2 Saturation 92, ABG Base Excess 3.3 H 06/04/24 05:36: WBC 19.2 H D, RBC 4.26, Hgb 12.6, Hct 39.9, MCV 93.7, MCH 29.5, MCHC 31.5 L, RDW 14.3, Plt Count 356, MPV 9.6, Neut % (Auto) 88.6 H, Lymph % (Auto) 6.0 L, [place] % (Auto) 4.9, Eos % (Auto) 0.3, Baso % (Auto) 0.2, Neut # (Auto) 17.0 H, Lymph # (Auto) 1.2, [place] # (Auto) 0.9, Eos # (Auto) 0.1, Baso # (Auto) 0.0, Total Counted 100, Neutrophils % (Manual) 88 H, Lymphocytes % (Manual) 9 L, Monocytes % (Manual) 3, Platelet Estimate Normal, RBC Morphology Normal, Sodium 143, Potassium 3.7, Chloride 108 H, Carbon Dioxide 30, Anion Gap 8.7, BUN 34 H D, Creatinine 1.40 H D, Estimated Creat Clear 32, Estimated GFR 37 L, Est GFR ( Amer) 44 L D, Glucose 84 D, Calcium 8.5, Magnesium 1.9 D, Total Bilirubin 0.5, AST 51 H D, ALT 30 D, Alkaline Phosphatase 91, Total Protein 6.5, Albumin 3.3 L, Globulin 3.2, Albumin/Globulin Ratio 1.0 L I & O for Labs for Last 24 Hours: Intake & Output 06/01/24 06/02/24 06/03/24 06/04/24 23:59 23:59 23:59 23:59 Intake Total 1450 / 1450 530 / 530 Output Total 1850 / 1850 500 / 500 Balance -400 / -400 Weight 57.47 kg 58.87 kg 59.421 kg Microbiology Reports for the Last 24 Hours: Microbiology 06/02/24 17:02 Blood Blood Culture - Preliminary NO GROWTH AFTER 24 HOURS 06/02/24 17:02 Blood Blood Culture - Preliminary NO GROWTH AFTER 24 HOURS Constitutional: Present no acute distress, average body habitus, chronically ill appearing and cooperative Head: Present atraumatic and normocephalic ENT: Present normal exam Neck: Present normal inspection Respiratory: Present prolonged expiratory phase, rhonchi, wheezes (Faint end expiratory), crackles (Bilateral bases) and normal respiratory effort; Absent respiratory distress Cardiac: Present Reg Rate and Rhythm GI: Present soft and normal bowel sounds; Absent distention or tenderness Extremities: Present normal inspection and full ROM Skin: Present intact; Absent erythema Comment:: Stasis dermatitis of lower extremities Neuro: Present Grossly Intact, alert, awake and moves all extremities Assessment and Plan *Assessment and plan (1) Acute exacerbation of chronic obstructive pulmonary disease: Status: Acute Category: Medical Code(s): J44.1 - Chronic obstructive pulmonary disease with (acute) exacerbation (2) Tobacco dependence: Status: Acute Category: Medical Code(s): F17.200 - Nicotine dependence, unspecified, uncomplicated (3) JANKI (acute kidney injury): Status: Acute Category: Medical Code(s): N17.9 - Acute kidney failure, unspecified (4) Acute hypokalemia: Status: Acute Category: Medical Code(s): E87.6 - Hypokalemia (5) Paroxysmal atrial fibrillation: Status: Acute Category: Medical Code(s): I48.0 - Paroxysmal atrial fibrillation (6) Chronic venous stasis: Status: Acute Category: Medical Code(s): I87.8 - Other specified disorders of veins Plan This is a 78-year-old female that had difficulty swallowing with identified emesis and subsequent shortness of air. She has a chronic tobacco use history and previously identified COPD on no home oxygen. She is not chronically anticoagulated for her atrial fibrillation. Her intake assessment identified chronic venous stasis with bilateral lower extremity wounds. Her ED evaluation identified acute kidney injury. Admitted to medicine for further management. Has had increased oxygen requirement overnight. Cardiology and pulmonology consulted today. Continues to necessitate inpatient management. Condition worsening in the past 24 hours, prognosis guarded. Problems addressed as follows: Pneumonia with COPD acute exacerbation present on admission Aspiration pneumonitis Tobacco dependence Continue supplemental oxygen, goal sats greater 90%. On CPAP overnight. Weaned to 4 L nasal cannula oxygen. Discussed case with pulmonology, recommend continuing supplemental oxygen as needed. Continue DuoNebs every 6 hours and Pulmicort every 12 hours Nicotine replacement therapy Incentive spirometry and flutter valve Continue ceftriaxone and doxycycline pending culture results -Repeat chest imaging concerning for pneumonia Acute kidney injury versus CKD Hypokalemia Dehydration Unclear patient's baseline, creatinine 0.82 years ago, 1.2 3 years ago. Creatinine remains elevated at 1.4 today, BUN 34. Necessitating diuresis given concern for volume overload. Monitoring daily. Potassium 3.7. Repeat CBC, CMP, magnesium ordered for the morning. Paroxysmal atrial fibrillation Telemetry monitoring ED ECG with atrial fibrillation controlled rate [id number] Initiated on Eliquis on arrival. Continue carvedilol 12.5 mg twice daily. Discussed case with cardiology this morning, preliminary echo shows calcified mitral valve leaflets with mild to moderate lateral stenosis and MR with normal EF. Recommend initiating Lasix 40 mg daily and Jardiance 10 mg daily Chronic venous stasis Chronic leg wounds Wound care, foam dressings placed on legs today. MRSA screening Full code Eliquis twice daily Mechanical soft after speech eval
--- NOTE | 2024-06-04 16:39 | PC.NURSE ---
pt was weaned from cpap to 4L nc earlier in shift. pt o2 sats have been between 89-94% on the 4L. pt had period earlier in shift where she wanted to go home. myself and informed pt of pt condition and our concern with discharging home. pt became frustrated and was educated on AMA form. pt agreed to stay one more night before returning home. pt has had no other complaints this shift. no new orders at this time. call light within reach.
[2024-06-04] MEDS: SODIUM CHLORIDE 3% 15ML NEB 3 ML IH (18:10)
[2024-06-04] MEDS: PANTOPRAZOLE 40MG TABLET 40 MG PO (20:02)
[2024-06-05] VITALS (8 sets, daily range): BP systolic 102–134; BP diastolic 57–83; PULSE 85–113; RESP 16–20; TEMP 36.6–36.9; O2SAT 88–95; BMI 24.7
[2024-06-05] MEDS: IPRATROPIUM/ALBUTEROL 3 ML NEB IH ×2 (00:17→06:20)
--- NOTE | 2024-06-05 00:18 | PC.NURSE ---
RESP CARE NOTE: Sputum sent down to lab at 0016
[2024-06-05] MEDS: CEFTRIAXONE SODIUM 1 GM in 0.9 % SODIUM CHLORIDE 50 ML IV (05:10)
[2024-06-05 05:58] LABS: Basophils % 0.2 % (0.1-2.0); Eosinophils # 0.1 K/mm3 (0.0-0.4); Eosinophils % 0.4 % (0.1-12.0); Hematocrit 37.1 % (37.0-47.0); Hemoglobin 11.5 g/dL (12.2-16.2); Lymphocytes # 1.9 K/mm3 (0.7-4.5); Lymphocytes % 15.7 % (10-50); Mean Corpuscular Hemoglobin 29.1 pg (27.0-31.2); Mean Corpuscular Volume 93.7 fl (81-99); Mean Platelet Volume 9.3 fl (7.4-10.4); Monocytes # 0.6 K/mm3 (0.1-1.0); Monocytes % 5.1 % (1.7-9.3); Neutrophils # 9.5 K/mm3 (1.8-7.8); Neutrophils % 78.6 % (37.0-80.0); Platelet Count 325 K/mm3 (142-424); Red Blood Count 3.96 M/mm3 (4.20-5.40); Red Cell Distribution Width 14.5 % (11.5-17.5); White Blood Count 12.1 K/mm3 (4.8-10.8)
[2024-06-05 06:18] LABS: Chloride 107 mmol/L (98-107)
[2024-06-05 06:19] LABS: Magnesium 1.9 mg/dl (1.6-2.3); Potassium 3.9 mmoL/L (3.5-5.1); Sodium 139 mmol/L (136-145)
[2024-06-05] MEDS: BUDESONIDE 0.5MG/2ML NEB 0.5 MG IH (06:20)
[2024-06-05 06:21] LABS: Alanine Aminotransferase 29 U/L (12-78); Anion Gap 5.9 mEq/L (5-15); Aspartate Amino Transferase 34 U/L (14-36); Blood Urea Nitrogen 37 mg/dl (7-17); Carbon Dioxide 30 mmol/L (22.0-30.0); Creatinine Clearance Estimated 37 mL/min (50-200); Estimated Glomerular Filt Rate 44 ml/min (>60); GFR (African American) 53 ML/MIN (>60)
[2024-06-05 06:22] LABS: Alkaline Phosphatase 88 U/L (38-126); Bilirubin,Total 0.4 mg/dl (0.2-1.3); Calcium 8.4 mg/dl (8.4-10.2); Glucose 92 mg/dl (74-100)
--- NOTE | 2024-06-05 06:53 | PC.NURSE ---
Patient has maintained o2 stats >90% on 1.5L NC. Expiratory wheezing noted throughout auscultation. Patient has rested well this shift with no complaints. Purewick removed due to patient frequently turning and purewick being displaced. Afib, sinus tach on tele.
[2024-06-05] MEDS: EMPAGLIFLOZIN 10MG TABLET 10 MG PO (08:30)
[2024-06-05] MEDS: DOXYCYCLINE HYCL 100 MG TABLET PO (08:30)
[2024-06-05] MEDS: predniSONE 20MG TAB 40 MG PO (08:31)
[2024-06-05] MEDS: CARVEDILOL 12.5MG TABLET 12.5 MG PO (08:31)
[2024-06-05] MEDS: FUROSEMIDE 40 MG TABLET PO (08:31)
[2024-06-05] MEDS: APIXABAN 5MG TABLET 5 MG PO (08:31)
--- NOTE | 2024-06-05 09:51 | EXP.PULM.PN ---
Subjective *Date: 06/05/24 *Time: 13:41 Interval history: No acute respiratory vents overnight. Improving oxygen requirements. Patient admits improving respiratory symptoms. Pulmonology Exam Inpatient Vital signs and Labs for Last 24 Hours: Temp Pulse Resp BP Pulse Ox O2 Del Method O2 Flow Rate 98.4 F 112 H 20 126/67 88 L Room Air 2 06/05/24 07:23 06/05/24 07:23 06/05/24 07:23 06/05/24 07:23 06/05/24 08:43 06/05/24 08:43 06/05/24 08:07 FiO2 80 06/04/24 05:59 Laboratory Results - last 24 hr 06/04/24 05:36: Total Counted 100, Neutrophils % (Manual) 88 H, Lymphocytes % (Manual) 9 L, Monocytes % (Manual) 3, Platelet Estimate Normal, RBC Morphology Normal 06/05/24 05:29: WBC 12.1 H D, RBC 3.96 L, Hgb 11.5 L, Hct 37.1, MCV 93.7, MCH 29.1, MCHC 31.0 L, RDW 14.5, Plt Count 325, MPV 9.3, Neut % (Auto) 78.6, Lymph % (Auto) 15.7, [place] % (Auto) 5.1, Eos % (Auto) 0.4, Baso % (Auto) 0.2, Neut # (Auto) 9.5 H, Lymph # (Auto) 1.9, [place] # (Auto) 0.6, Eos # (Auto) 0.1, Baso # (Auto) 0.0, Sodium 139, Potassium 3.9, Chloride 107, Carbon Dioxide 30, Anion Gap 5.9, BUN 37 H, Creatinine 1.20 H, Estimated Creat Clear 37, Estimated GFR 44 L, Est GFR ( Amer) 53 L D, Glucose 92, Calcium 8.4, Magnesium 1.9, Total Bilirubin 0.4, AST 34 D, ALT 29, Alkaline Phosphatase 88, Total Protein 6.0 L, Albumin 3.0 L, Globulin 3.0, Albumin/Globulin Ratio 1.0 L Temp Pulse Resp BP Pulse Ox O2 Del Method O2 Flow Rate 98.3 F 100 H 20 126/70 98 BiPAP 14 06/04/24 07:57 06/04/24 08:00 06/04/24 07:57 06/04/24 07:57 06/04/24 07:57 06/04/24 07:57 06/04/24 06:31 FiO2 80 06/04/24 05:59 Laboratory Results - last 24 hr 06/03/24 05:42: Procalcitonin 0.144 06/03/24 18:18: ABG pH 7.44, ABG pCO2 41.1, ABG pO2 59.5 L, ABG HCO3 27.4 H, ABG Total CO2 28.7 H, ABG O2 Saturation 92, ABG Base Excess 3.3 H 06/04/24 05:36: WBC 19.2 H D, RBC 4.26, Hgb 12.6, Hct 39.9, MCV 93.7, MCH 29.5, MCHC 31.5 L, RDW 14.3, Plt Count 356, MPV 9.6, Neut % (Auto) 88.6 H, Lymph % (Auto) 6.0 L, [place] % (Auto) 4.9, Eos % (Auto) 0.3, Baso % (Auto) 0.2, Neut # (Auto) 17.0 H, Lymph # (Auto) 1.2, [place] # (Auto) 0.9, Eos # (Auto) 0.1, Baso # (Auto) 0.0, Sodium 143, Potassium 3.7, Chloride 108 H, Carbon Dioxide 30, Anion Gap 8.7, BUN 34 H D, Creatinine 1.40 H D, Estimated Creat Clear 32, Estimated GFR 37 L, Est GFR ( Amer) 44 L D, Glucose 84 D, Calcium 8.5, Magnesium 1.9 D, Total Bilirubin 0.5, AST 51 H D, ALT 30 D, Alkaline Phosphatase 91, Total Protein 6.5, Albumin 3.3 L, Globulin 3.2, Albumin/Globulin Ratio 1.0 L I & O for Labs for Last 24 Hours: Intake & Output 06/02/24 06/03/24 06/04/24 06/05/24 23:59 23:59 23:59 23:59 Intake Total 1450 / 1450 1370 / 1370 50 / 50 Output Total 1850 / 1850 1100 / 1100 150 / 150 Balance -400 / -400 270 / 270 -100 / -100 Weight 126 lb 11.2 oz 129 lb 12.578 oz 131 lb 131 lb 3.2 oz Intake & Output 06/01/24 06/02/24 06/03/24 06/04/24 23:59 23:59 23:59 23:59 Intake Total 1450 / 1450 50 / 50 Output Total 1850 / 1850 500 / 500 Balance -400 / -400 -450 / -450 Weight 126 lb 11.2 oz 129 lb 12.578 oz 131 lb Microbiology Reports for the Last 24 Hours: Microbiology 06/02/24 17:02 Blood Blood Culture - Preliminary NO GROWTH AFTER 48 HOURS 06/02/24 17:02 Blood Blood Culture - Preliminary NO GROWTH AFTER 48 HOURS Microbiology 06/02/24 17:02 Blood Blood Culture - Preliminary NO GROWTH AFTER 24 HOURS 06/02/24 17:02 Blood Blood Culture - Preliminary NO GROWTH AFTER 24 HOURS Constitutional: Present moderate distress Head: Present normocephalic and atraumatic ENT: Present normal exam, normal oropharynx and mucous membranes moist Neck: Present normal inspection and full ROM Respiratory: Present respiratory distress and able to speak in complete sentences; Absent prolonged expiratory phase or wheezes Cardiac: Present S1/S2, Tachycardia and radial pulses present GI: Present soft and distention; Absent tenderness or guarding Rectal (female): Present deferred (female): Present deferred Skin: Present intact; Absent cyanosis or jaundice Neuro: Present alert, awake and oriented x 3 Extremities: Present normal inspection; Absent clubbing or cyanosis Psychiatric: Present normal affect and cooperative Assessment and Plan *Assessment and plan (1) Pneumonia: Status: Acute Category: Medical Code(s): J18.9 - Pneumonia, unspecified organism (2) Acute and chronic respiratory failure with hypoxia: Status: Acute Category: Medical Code(s): J96.21 - Acute and chronic respiratory failure with hypoxia (3) (HFpEF) heart failure with preserved ejection fraction: Status: Acute Category: Medical Code(s): I50.30 - Unspecified diastolic (congestive) heart failure Plan Ms. Colon is a 78-year-old female with reported history of greater than [id number] smoking history presented to the ER complaining of episode of choking vomiting along with respiratory distress. Patient denies any use of inhaler therapy at baseline. Admits using oxygen supplementation. Admits gradually worsening respiratory distress Afebrile. Neutrophilic prominent leukocytosis. Venous and arterial blood gas upon admission did not show any evidence of hypercarbic respiratory failure. CT chest without contrast upon admission with significant emphysematous changes noted. Bilateral lower lobe consolidative changes left greater than right along with small right pleural effusion and adjacent atelectasis noted. Patient noted to have worsening respiratory since admission with escalation of the left upper extremity mask to CPAP therapy overnight. Weaned to 4 L this morning. On initial examination auscultation no significant wheezing noted. Interval update: Improving leukocytosis. Continue to receive ceftriaxone and doxycycline. Lower extremity venous Doppler negative for DVT. Plan: Continue oxygen supplementation to maintain O2 saturation goal of 90 to 95%. Wean as tolerated. Trelegy 100 inhaler along with DuoNebs every 6 hours on as needed basis Incentive spirometry and flutter valve Continue ceftriaxone and doxycycline pending culture results, antibiotics can be weaned to cefdinir to complete a total of 5-day course Continue prednisone 40 mg daily to complete a total of 5-day course # Thank you for involving pulmonary in this patient care. Will follow the patient in pulmonary clinic.
--- NOTE | 2024-06-05 10:00 | EXP.CARD.PN ---
Subjective Subjective Date: 06/05/24 Time: 08:00 Principal diagnosis: pneumonia, hypoxic respiratory failure Interval history: Doing well, sitting up on chair today, morning labs reviewed and stable. Exam Data for Last 24 hours Vital signs and Labs for Last 24 Hours: Temp Pulse Resp BP Pulse Ox O2 Del Method O2 Flow Rate 98.4 F 112 H 20 126/67 88 L Nasal Cannula 2 06/05/24 07:23 06/05/24 07:23 06/05/24 07:23 06/05/24 07:23 06/05/24 08:43 06/05/24 09:57 06/05/24 09:57 FiO2 80 06/04/24 05:59 Laboratory Results - last 24 hr 06/04/24 05:36: Total Counted 100, Neutrophils % (Manual) 88 H, Lymphocytes % (Manual) 9 L, Monocytes % (Manual) 3, Platelet Estimate Normal, RBC Morphology Normal 06/05/24 05:29: WBC 12.1 H D, RBC 3.96 L, Hgb 11.5 L, Hct 37.1, MCV 93.7, MCH 29.1, MCHC 31.0 L, RDW 14.5, Plt Count 325, MPV 9.3, Neut % (Auto) 78.6, Lymph % (Auto) 15.7, [place] % (Auto) 5.1, Eos % (Auto) 0.4, Baso % (Auto) 0.2, Neut # (Auto) 9.5 H, Lymph # (Auto) 1.9, [place] # (Auto) 0.6, Eos # (Auto) 0.1, Baso # (Auto) 0.0, Sodium 139, Potassium 3.9, Chloride 107, Carbon Dioxide 30, Anion Gap 5.9, BUN 37 H, Creatinine 1.20 H, Estimated Creat Clear 37, Estimated GFR 44 L, Est GFR ( Amer) 53 L D, Glucose 92, Calcium 8.4, Magnesium 1.9, Total Bilirubin 0.4, AST 34 D, ALT 29, Alkaline Phosphatase 88, Total Protein 6.0 L, Albumin 3.0 L, Globulin 3.0, Albumin/Globulin Ratio 1.0 L I & O for Last 24 hours: Intake & Output 06/02/24 06/03/24 06/04/24 06/05/24 23:59 23:59 23:59 23:59 Intake Total 1450 / 1450 1370 / 1370 50 / 50 Output Total 1850 / 1850 1100 / 1100 150 / 150 Balance -400 / -400 270 / 270 -100 / -100 Weight 126 lb 11.2 oz 129 lb 12.578 oz 131 lb 131 lb 3.2 oz Microbiology Reports for the Last 24 Hours: Microbiology 06/02/24 17:02 Blood Blood Culture - Preliminary NO GROWTH AFTER 48 HOURS 06/02/24 17:02 Blood Blood Culture - Preliminary NO GROWTH AFTER 48 HOURS Constitutional Constitutional: no acute distress *Routine Respiratory Exam Respiratory: Present wheezes and symmetric chest movement *Routine Cardiovascular Exam Cardiovascular: Present Normal S1 and Normal S2 Comments: afib *Routine Abdominal Exam Abdominal: Present soft and normoactive bowel sounds; Absent tenderness *Routine Extremities Exam Extremities: Present full ROM *Routine Skin Exam Skin: Present intact, dry and warm Detailed Neck Exam: Thyroids Thyroid: Absent bruit Progress Note: A&P Assessment and plan (1) Pneumonia: Status: Acute (2) Acute and chronic respiratory failure with hypoxia: Status: Acute Assessment and Plan Assessment and Plan for All Diagnoses:: Acute pneumonia Aspiration COPD exacerbation Tobacco dependence HFpEF Pulmonology following and managing abx and nebs Echo official read: Normal LV function, grade 2 diastolic dysfunction, moderate RV dilation with moderate reduction in RV function, severe left atrial dilation, mild to moderate , moderate AI, severe MAC, moderate MR, mild TR RVSP 25+ Continue lasix 40mg po daily and jardiance 10mg po daily Add Aldactone 25 mg p.o. daily Acute kidney injury-resolving Hypokalemia-resolving Potassium 3.9 Creatinine 1.2 Chronic A-fib Rate controlled Continue Coreg 12.5 mg p.o. twice daily Continue Eliquis 5 mg p.o. daily CV summary 06/05/2024: Patient is CV stable. Cardiology will sign off. Recommend continue diuretics and add Aldactone 25 mg p.o. daily. Please have patient follow-up in cardiology clinic in 1 to 2 weeks. Cardiac meds Eliquis 5 mg p.o. twice daily Coreg 12.5 mg p.o. twice daily Lasix 40mg po daily Start jardiance 10mg po daily Aldactone 25 mg p.o. daily
[2024-06-05] MEDS: SPIRONOLACTONE 25MG TABLET 25 MG PO (11:17)
--- NOTE | 2024-06-05 11:21 | EXP.DC.SUM ---
General Admission date:: 06/02/24 Discharge date: 06/05/24 HPI HPI HPI: This is a 78-year-old female that presents to [facility] emergency department for evaluation of choking, vomiting and trouble breathing. She describes a chronic tobacco use history (1 pack/day greater than 50 years) with no home oxygen. She reports choking on food with subsequent emesis. She was evaluated and found to be hypoxemic in the ED and required oxygen supplementation to maintain appropriate oxygen saturations. She was hypokalemic with acute kidney injury (baseline creatinine 0.8). She reported improvement with oxygen supplementation. Hospital Course Hospital Course Hospital Course: This is a 78-year-old female that had difficulty swallowing with identified emesis and subsequent shortness of air. She has a chronic tobacco use history and previously identified COPD on no home oxygen. She is not chronically anticoagulated for her atrial fibrillation. Her intake assessment identified chronic venous stasis with bilateral lower extremity wounds. Her ED evaluation identified acute kidney injury. Admitted to medicine for further management. Has had increased oxygen requirement overnight. Cardiology and pulmonology consulted. Patient responded well to diuresis for her diastolic heart failure. Responding to antibiotics and steroids for pneumonia. Stable on 1 to 2 L oxygen. Given her clinical stability, improvement in labs, plan to discharge home today with supplemental oxygen and close follow-up as an outpatient. Problems addressed as follows: Pneumonia with COPD acute exacerbation present on admission Aspiration pneumonitis Tobacco dependence Initiated on supplemental oxygen and antibiotics with ceftriaxone and doxycycline. Pulmonology consulted. Recommend continuing oxygen as needed. Treated with DuoNebs and Pulmicort during admission. Nicotine replacement therapy during admission for her tobacco dependence. On day of discharge, patient's oxygen saturation was 88% at rest on room air. Necessitating 2 L continuous nasal cannula oxygen. Order sent to [facility]. Will complete 5 days of steroids and antibiotics with prednisone and doxycycline. Repeat imaging showing improvement in her pneumonia/edema. Acute kidney injury versus CKD Hypokalemia Dehydration Unclear patient's baseline, creatinine 0.8 two years ago, 1.2 3 years ago. Creatinine improved with diuresis to a BUN of 37 creatinine 1.2 on day of discharge. Tolerating medication and treatments well. Potassium 3.9. Magnesium 1.9. Recommend considering repeat CMP at follow-up Paroxysmal atrial fibrillation Telemetry monitoring during admission. Rate controlled. [id number] Initiated on Eliquis on arrival. Continue carvedilol 12.5 mg twice daily. Discussed case with cardiology this morning, preliminary echo shows calcified mitral valve leaflets with mild to moderate lateral stenosis and MR with normal EF. Recommend initiating Lasix 40 mg daily and Jardiance 10 mg daily Chronic venous stasis Chronic leg wounds Wound care, foam dressings placed on legs. Total time spent on discharge 35 minutes in counseling, documentation, chart review, and direct care with patient. Exam Data for Last 24 hours Vital signs and Labs for Last 24 Hours: Temp Pulse Resp BP Pulse Ox O2 Del Method O2 Flow Rate 98.4 F 112 H 20 126/67 88 L Nasal Cannula 2 06/05/24 07:23 06/05/24 07:23 06/05/24 07:23 06/05/24 07:23 06/05/24 08:43 06/05/24 09:57 06/05/24 09:57 FiO2 80 06/04/24 05:59 Laboratory Results - last 24 hr 06/05/24 05:29: WBC 12.1 H D, RBC 3.96 L, Hgb 11.5 L, Hct 37.1, MCV 93.7, MCH 29.1, MCHC 31.0 L, RDW 14.5, Plt Count 325, MPV 9.3, Neut % (Auto) 78.6, Lymph % (Auto) 15.7, [place] % (Auto) 5.1, Eos % (Auto) 0.4, Baso % (Auto) 0.2, Neut # (Auto) 9.5 H, Lymph # (Auto) 1.9, [place] # (Auto) 0.6, Eos # (Auto) 0.1, Baso # (Auto) 0.0, Sodium 139, Potassium 3.9, Chloride 107, Carbon Dioxide 30, Anion Gap 5.9, BUN 37 H, Creatinine 1.20 H, Estimated Creat Clear 37, Estimated GFR 44 L, Est GFR ( Amer) 53 L D, Glucose 92, Calcium 8.4, Magnesium 1.9, Total Bilirubin 0.4, AST 34 D, ALT 29, Alkaline Phosphatase 88, Total Protein 6.0 L, Albumin 3.0 L, Globulin 3.0, Albumin/Globulin Ratio 1.0 L I & O for Last 24 hours: Intake & Output 08/06/03/24 06/04/24 06/05/24 23:59 23:59 23:59 23:59 Intake Total 1450 / 1450 1370 / 1370 50 / 50 Output Total 1850 / 1850 1100 / 1100 150 / 150 Balance -400 / -400 270 / 270 -100 / -100 Weight 57.47 kg 58.87 kg 59.421 kg 59.511 kg Microbiology Reports for the Last 24 Hours: Microbiology 06/02/24 17:02 Blood Blood Culture - Preliminary NO GROWTH AFTER 48 HOURS 06/02/24 17:02 Blood Blood Culture - Preliminary NO GROWTH AFTER 48 HOURS Constitutional Constitutional: no acute distress, thin, chronically ill appearing and cooperative *Routine HEENT Exam Head: Present normocephalic Eye: Present EOMI and PERRL ENT: Present mucous membranes moist *Routine Neck Exam Neck: Present supple; Absent lymphadenopathy *Routine Respiratory Exam Respiratory: Present prolonged expiratory phase, wheezes and diminished air movement; Absent rhonchi or crackles *Routine Cardiovascular Exam Cardiovascular: Present RRR *Routine Abdominal Exam Abdominal: Present soft and normoactive bowel sounds; Absent tenderness *Routine Rectal Exam Patient deferred: visual exam *Routine Exam Patient deferred: external exam *Routine Extremities Exam Extremities: Absent cyanosis, clubbing or edema *Routine Skin Exam Skin: Present warm; Absent rash Comments: Stasis changes to lower extremities bilaterally. Dressing changes in place. *Routine Neurological Exam Neurological: Present alert, oriented X3 and moving all extremities; Absent altered mental status Results Data Completed and Pending Labs on day of discharge: Labs from last 24 hours 06/05/24 05:29 WBC 12.1 H D RBC 3.96 L Hgb 11.5 L Hct 37.1 MCV 93.7 MCH 29.1 MCHC 31.0 L RDW 14.5 Plt Count 325 MPV 9.3 Neut % (Auto) 78.6 Lymph % (Auto) 15.7 [place] % (Auto) 5.1 Eos % (Auto) 0.4 Baso % (Auto) 0.2 Neut # (Auto) 9.5 H Lymph # (Auto) 1.9 [place] # (Auto) 0.6 Eos # (Auto) 0.1 Baso # (Auto) 0.0 Sodium 139 Potassium 3.9 Chloride 107 Carbon Dioxide 30 Anion Gap 5.9 BUN 37 H Creatinine 1.20 H Estimated Creat Clear 37 Estimated GFR 44 L Est GFR ( Amer) 53 L D Glucose 92 Calcium 8.4 Magnesium 1.9 Total Bilirubin 0.4 AST 34 D ALT 29 Alkaline Phosphatase 88 Total Protein 6.0 L Albumin 3.0 L Globulin 3.0 Albumin/Globulin Ratio 1.0 L Preliminary micro results at discharge 06/02/24 17:02 Blood Culture - Preliminary Blood NO GROWTH AFTER 48 HOURS 06/02/24 17:02 Blood Culture - Preliminary Blood NO GROWTH AFTER 48 HOURS DS: Diagnosis Discharge Diagnosis (1) Pneumonia: Status: Acute Code(s): J18.9 - Pneumonia, unspecified organism (2) Acute and chronic respiratory failure with hypoxia: Status: Acute Code(s): J96.21 - Acute and chronic respiratory failure with hypoxia (3) Chronic a-fib: Status: Acute Code(s): I48.20 - Chronic atrial fibrillation, unspecified (4) (HFpEF) heart failure with preserved ejection fraction: Status: Acute Code(s): I50.30 - Unspecified diastolic (congestive) heart failure (5) Tobacco dependence: Status: Acute Code(s): F17.200 - Nicotine dependence, unspecified, uncomplicated Meds Home Medications and Allergies Home Medications ?Medication ?Instructions ?Recorded ?Confirmed ?Type pantoprazole 40 mg tablet,delayed 40 mg PO HS 07/13/21 06/03/24 History release ondansetron 4 mg disintegrating 4 mg PO Q6H PRN nausea and 06/02/24 Rx tablet vomiting #10 tabs furosemide 40 mg tablet 40 mg PO DAILY 06/03/24 06/03/24 History sucralfate 1 gram tablet 1 g PO BID 06/03/24 06/03/24 History carvedilol 12.5 mg tablet 12.5 mg PO BID 30 days #60 tabs 06/05/24 Rx doxycycline hyclate 100 mg tablet 100 mg PO BID 2 days #4 tabs 06/05/24 Rx empagliflozin 10 mg tablet 10 mg PO DAILY 30 days #30 tabs 06/05/24 Rx (Jardiance) prednisone 20 mg tablet 40 mg (2 x 20 mg) PO DAILY 2 days 06/05/24 Rx #4 tabs spironolactone 25 mg tablet 25 mg PO DAILY 30 days #30 tabs 06/05/24 Rx New Prescriptions to Start Prescriptions: carShola Valencia doxycycline hyclate Shola Soto empagliflozin [Jardiance] Shola Soto ondansetron [place] prednisone Shola Soto spironolactone Shola Soto Allergies Allergy/AdvReac Type Severity Reaction Status Date / Time Penicillins Allergy Mild Verified 08/01/21 11:49 Discharge Plan Disposition Patient Disposition: Home Health Service Condition: Fair Discharge Order Discharge Orders: Discharge Order (Routine); Ordered 06/05/24 Ordered By: Shola Soto Follow up Plan Follow up with: Timbo Marte MD [Physician] - 06/19/24 10:40 am Vipul Jerez MD [Staff Physician] - 06/16/24 2:15 pm Prescriptions/Medication Reconciliation: New ondansetron 4 mg tablet,disintegrating 4 mg PO Q6H PRN (Reason: nausea and vomiting) Qty: 10 0RF carvedilol 12.5 mg Tablet 12.5 mg PO BID 30 Days Qty: 60 0RF doxycycline hyclate 100 mg Tablet 100 mg PO BID 2 Days Qty: 4 0RF prednisone 20 mg Tablet 40 mg PO DAILY 2 Days Qty: 4 0RF spironolactone 25 mg Tablet 25 mg PO DAILY 30 Days Qty: 30 0RF Jardiance 10 mg Tablet 10 mg PO DAILY 30 Days Qty: 30 0RF Continued furosemide 40 mg tablet 40 mg PO DAILY Patient Comments: Take 1 tablet every day by oral route in the morning, for LEG SWELLING. sucralfate 1 gram tablet 1 g PO BID Patient Comments: TAKE ONE TABLET BY MOUTH TWICE DAILY FOR stomach pantoprazole 40 MG tablet,delayed release (DR/EC) 40 mg PO HS Discontinued amlodipine 2.5 mg tablet 2.5 mg PO DAILY Patient Comments: TAKE ONE TABLET BY MOUTH EVERY DAY potassium chloride 10 mEq tablet extended release 10 meq PO DAILY Patient Comments: TAKE ONE TABLET BY MOUTH EVERY DAY. take with furosemide. Other Ambulatory Orders: Home Medical Equipment (Routine) Location: None Selected Ordered By: Shola Soto Problem Reconciliation Problems Reviewed?: Yes Patient Discharge Instructions ACTIVITY: Continue current activity DIET: continue same diet Patient Instructions: DI for Chronic Obstructive Pulmonary Disease Print Language: Mongolian Providers Primary Care Provider: Provider,Referral Admit Provider: Shola oSto Attending Provider: Shola Soto
--- NOTE | 2024-06-10 10:01 | CARE MANAGER ---
Attempted to contact patient related to hospital discharge. No VM option. GILBERTO Kasper
== END 2024-06-05 13:06 | disposition home health service (06) | DRG 177 ==
LOC: ER 21:23 → 2ND 06-03 05:46
PROVIDERS: Family Medicine; Admitting Provider Internal Medicine Adolescent Medicine; Emergency Provider Emergency Medicine; Visit Provider Internal Medicine Adolescent Medicine
DX: J69.0 Pneumonitis due to inhalation of food and vomit (principal); J96.21 Acute and chronic respiratory failure with hypoxia; J44.1 Chronic obstructive pulmonary disease with (acute) exacerbation; N17.9 Acute kidney failure, unspecified; I50.30 Unspecified diastolic (congestive) heart failure; J44.0 Chronic obstructive pulmonary disease with (acute) lower respiratory infection; F17.210 Nicotine dependence, cigarettes, uncomplicated; E87.6 Hypokalemia; I48.0 Paroxysmal atrial fibrillation; E86.0 Dehydration; I87.8 Other specified disorders of veins; N18.9 Chronic kidney disease, unspecified; F17.200 Nicotine dependence, unspecified, uncomplicated; Z85.528 Personal history of other malignant neoplasm of kidney; I73.9 Peripheral vascular disease, unspecified
CPT/HCPCS: 36415; 71045; 71250; 80048; 80053; 82803; 83605; 83735; 83880; 84145; 84484; 85007; 85025; 85027; 87040; 87070; 87081; 87205; 87636; 92610; 93005; 93306; 93970; 94640; 94667; 94668; 94761; 97163; 97165; 97530; 99285; J0696; J1940; J2060; J2405; J2919; J3480; J7030; J7120; J7620